=== PATIENT | male | born 1935 | race Caucasian/White ===

== ENCOUNTER 2019-03-05 09:58 | Emergency (ER) | payer MEDICARE ==
--- NOTE | 2019-03-05 11:35 | UC ---
Complaint Male HPI - HPI Summary HPI Summary: 83-year-old male who finished cephalexin for a urinary tract infection and hematuria yesterday. He states his urine completely cleared up until this morning when he started noticing some blood in the urine. He has voided one or 2 more times since then and states he has a little more blood in the urine although not alaina bleeding. He is on Coumadin for atrial fibrillation. His last PT/INR was drawn 3 weeks ago and his dosage was adjusted. He is in the process of moving to [place] from [place] with his and he states his Coumadin level was increased 3 weeks ago as result of the PT/INR. He states the [place] weather has caused him to have intermittent wheezing although he does have a history of COPD from previous smoking. He gave up smoking years ago. He states while in [place] his wheezing will come and go although he does have an albuterol inhaler. He denies any painful urination however does state that when he had the urinary tract infection and was seen in [facility] he had some lower abdominal discomfort. He states the lower abdominal discomfort has started a little bit today. He denies any fever or chills. No nausea vomiting or diarrhea. Occasionally he states his feet and ankles will swell. He denies any shortness of breath. He did state that over the past day he has had a productive cough of brownish sputum occasionally. - History of Current Complaint Stated Complaint: BLOOD IN URINE Time Seen by Provider: 03/05/19 11:12 Hx Obtained From: Patient, Family/Clinic Specialist Onset/Duration: Gradual Onset Timing: Intermittent Severity Initially: Mild Severity Currently: Mild Location: Other - Lower abdominal discomfort. Aggravating Factor(s): Nothing - Patient cannot describe the lower abdominal discomfort other than stating that is uncomfortable. Associated Signs And Symptoms: Positive: Hematuria. Negative: Back Pain, Fever , Dysuria, Blood in Stool, Nausea, Penile Discharge - Allergies/Home Medications Allergies/Adverse Reactions: Allergies Allergy/AdvReac Type Severity Reaction Status Date / Time No Known Allergies Allergy Verified 03/05/19 11:03 Home Medications: Home Medications Albuterol HFA INHALER* [Ventolin HFA Inhaler*] 2 puff INH BID 03/05/19 [History Confirmed 03/05/19] Digoxin TAB* [Lanoxin TAB*] 0.25 mg PO DAILY 03/05/19 [History Confirmed ] Eplerenone [Inspra] 25 mg PO DAILY 03/05/19 [History Confirmed 03/05/19] Finasteride TAB* [Proscar TAB*] 5 mg PO BEDTIME 03/05/19 [History Confirmed 09/18] Furosemide TAB* [Lasix TAB*] 20 mg PO DAILY 03/05/19 [History Confirmed 03/05/19 ] Gabapentin CAP(*) [Neurontin 300 CAP(*)] 300 mg PO BEDTIME 03/05/19 [History Confirmed 03/05/19] Levothyroxine TAB* [Synthroid TAB*] 137 mcg PO DAILY 03/05/19 [History Confirmed 03/05/19] Medicated Nasal [place] 1 dose INH QPM 03/05/19 [History] Nebulizer Tx Copd 1 unit INH BID 03/05/19 [History] Oxygen 1 dose INH BEDTIME 03/05/19 [History Confirmed 03/05/19] Simvastatin [Zocor 5 MG-] 10 mg PO QPM 03/05/19 [History Confirmed 03/05/19] Warfarin TAB(*) [Coumadin TAB(*)] 5 mg PO QPM 03/05/19 [History Confirmed ] Warfarin TAB(*) [Coumadin TAB(*)] 7.5 mg PO DAILY 03/05/19 [History Confirmed ] cephALEXin [Keflex] 500 mg PO Q6H 03/05/19 [History Confirmed 03/05/19] diphenhydrAMINE HCl [Nighttime Sleep Aid] 25 mg PO QPM 03/05/19 [History Confirmed 03/05/19] metFORMIN* [Glucophage 500 MG TAB *] 500 mg PO BID 03/05/19 [History Confirmed 03/05/19] rOPINIRole TAB* [Requip TAB*] 1 mg PO DAILY 03/05/19 [History Confirmed 03/05/19 ] PMH/Surg Hx/FS Hx/Imm Hx Previously Healthy: Yes Endocrine History: Diabetes, Thyroid Disease Cardiovascular History: Cardiac Disease, Atrial Fibrillation Respiratory History: COPD GI/ History: Other - Just recently finished a course of cephalexin for urinary tract infection which presented as hematuria. Other History Of: Anticoagulant Therapy - Patient takes Coumadin for atrial fibrillation. - Family History Known Family History: Positive: Non-Contributory - Social History Occupation: Retired - Patient is in the process of moving from [place] to [place]. Lives: With Family Review of Systems All Other Systems Reviewed And Are Negative: Yes Respiratory: Positive: Cough - Occasional productive cough of brownish sputum, the patient also has intermittent wheezing which he attributes to the change in weather from [place] to [place]. Gastrointestinal: Positive: Abdominal Pain - Lower abdominal discomfort across the lower abdomen, more in the pelvic area. Genitourinary: Positive: Hematuria. Negative: Vaginal/Penile Burning, Vaginal/ Penile Itching, Vaginal/Penile Discharge, Vaginal/Penile Pain, Vaginal/Penile Tenderness Is Patient Immunocompromised?: No Physical Exam Triage Information Reviewed: Yes Appearance: Well-Appearing, No Pain Distress, Well-Nourished Vital Signs Reviewed: Yes Eyes: Positive: Conjunctiva Clear ENT: Positive: Pharynx normal, TMs normal, Uvula midline Neck: Positive: Supple, Nontender, No Lymphadenopathy Respiratory: Positive: No respiratory distress, No accessory muscle use, Wheezing Cardiovascular: Positive: RRR, No Murmur, Pulses Normal, Brisk Capillary Refill Abdomen Description: Positive: No Organomegaly, Soft, Other: - Abdomen is soft with minimal tenderness in the lower abdomen. No rigidity rebound or guarding.. Negative: CVA Tenderness (R), CVA Tenderness (L), Distended, Guarding, Hepatomegaly, McBurney's Point Tenderness, Splenomegaly Bowel Sounds: Positive: Present Complaint Male Course/Dx - Course Course Of Treatment: CXR: FINDINGS: CARDIOMEDIASTINAL SILHOUETTE: The cardiomediastinal silhouette is normal. OG: The og are normal. PLEURA: The costophrenic angles are sharp. No pleural abnormalities are noted. LUNG PARENCHYMA: There is hyperinflation with flattening of the diaphragm and expansion of the AP diameter of the chest. ABDOMEN: The upper abdomen is clear. There is no subphrenic gas. BONES AND SOFT TISSUES: No bone or soft tissue abnormalities are noted. OTHER: A left-sided pacemaker is noted. IMPRESSION: HYPERINFLATION. NO ACTIVE CARDIOPULMONARY DISEASE. I am going to refill the patient's albuterol inhaler because his almost gone. He can do to puffs every 4-6 hours as needed for wheezing. He is headed back home to [place] on Friday and he as well as his preferred to follow-up with air urologist in [place] as well as her primary care provider. We will draw an INR here and follow-up later in the day with the daughter. In the meantime she is to contact his primary care provider and give the results of the INR and possibly change his dosage of Coumadin. After discussion with Dr. Kirk, I am going to treat with Cefdinir to cover a possible urinary tract infection as well as bronchitis. For any worsening symptoms or to go to the emergency room for further treatment. The daughter as well as the and are in agreement with this plan of action. - Differential Dx/Diagnosis Provider Diagnosis: Hematuria, Bronchitis Discharge ED - Sign-Out/Discharge Documenting (check all that apply): Patient Departure All imaging exams completed and their final reports reviewed: Yes - Discharge Plan Condition: Fair Disposition: HOME Prescriptions: Albuterol HFA INHALER* [Ventolin HFA Inhaler*] 2 puff INH Q4H PRN 5 Days #1 mdi PRN Reason: Wheezing Cefdinir [Cefdinir 300 MG CAP] 300 mg PO BID 10 Days #20 cap Patient Education Materials: Acute Bronchitis (ED), Hematuria (ED) Referrals: [facility] [Outside] No Primary Care Phys,NOPCP [Primary Care Provider] - Additional Instructions: Increase fluids, if you have not heard from us by 7:00 PM call here to find out the INR level. It is important because of the blood in the urine that you follow-up with a urologist in [place] next week. It is possible you may need a cystoscopy to find out the source of the bloody urine. If you develop worse bleeding, chest pain, difficulty breathing, worsening abdominal pain and then you're to go to the emergency room for further care. Use your albuterol inhaler 2 puffs every 4-6 hours as needed for wheezing or tight cough. - Billing Disposition and Condition Condition: FAIR Disposition: Home
[2019-03-05 18:41] LABS: INR 1.08 (0.82-1.09)
--- NOTE | 2019-03-07 13:07 | ED ---
Progress - Progress Note Progress Note: Urine culture final report reviewed: No growth, less than 1000 CFU/mL RN to call the patient and inform her of the results. She is on cefdinir for UTI and bronchitis. She does not have UTI. She should continue Cefdinir for her bronchitis. If she continues to have blood in urine she should check with her primary care doctor or if the symptoms are getting worse she should go to the ER. Course/Dx - Diagnoses Provider Diagnoses: Hematuria, Bronchitis Discharge ED - Sign-Out/Discharge Documenting (check all that apply): Post-Discharge Follow Up All imaging exams completed and their final reports reviewed: Yes - Discharge Plan Condition: Fair Disposition: HOME Prescriptions: Albuterol HFA INHALER* [Ventolin HFA Inhaler*] 2 puff INH Q4H PRN 5 Days #1 mdi PRN Reason: Wheezing Cefdinir [Cefdinir 300 MG CAP] 300 mg PO BID 10 Days #20 cap Patient Education Materials: Acute Bronchitis (ED), Hematuria (ED) Referrals: [facility] [Outside] No Primary Care Phys,NOPCP [Primary Care Provider] - Additional Instructions: Increase fluids, if you have not heard from us by 7:00 PM call here to find out the INR level. It is important because of the blood in the urine that you follow-up with a urologist in [place] next week. It is possible you may need a cystoscopy to find out the source of the bloody urine. If you develop worse bleeding, chest pain, difficulty breathing, worsening abdominal pain and then you're to go to the emergency room for further care. Use your albuterol inhaler 2 puffs every 4-6 hours as needed for wheezing or tight cough. - Billing Disposition and Condition Condition: FAIR Disposition: Home
== END 2019-03-05 13:48 | disposition home or self-care (01) ==
LOC: UCCORT 09:58
DX: R31.9 Hematuria, unspecified (principal); J40 Bronchitis, not specified as acute or chronic; Z79.01 Long term (current) use of anticoagulants; J44.9 Chronic obstructive pulmonary disease, unspecified; Z87.891 Personal history of nicotine dependence; Z79.899 Other long term (current) drug therapy; I48.91 Unspecified atrial fibrillation; E11.9 Type 2 diabetes mellitus without complications; E07.9 Disorder of thyroid, unspecified; Z79.84 Long term (current) use of oral hypoglycemic drugs
CPT/HCPCS: 36415; 71046; 81003; 85610; 87086; 99202; G0463

== ENCOUNTER 2019-05-24 14:01 | Observation (INO) | payer MEDICARE ==
--- NOTE | 2019-05-24 16:04 | ED ---
Respiratory - HPI Summary HPI Summary: This patient is an 84 year old male presenting to [facility] with a chief complaint of chest congestion. The patient was seen for the same thing a few months ago and was treated successfully. The patient reports SOB and hematuria yesterday. He states his symptoms have been going on for 2-3 weeks. He states he uses O2 at night with CPAP. He also reports abdominal pain and headache. He states he has never been on water pills. No Hx of kidney stones or bladder cancer. He states a Hx of AFIB and Pacemaker. Pt denies any fever, chills, erythema of eyes , sore throat, CP, cough, N/V, dysuria, myalgia, edema, rash, or dizziness. - History of Current Complaint Chief Complaint: EDAbdPain Stated Complaint: SOB PER PT Time Seen by Provider: 05/24/19 15:50 Hx Obtained From: Patient Onset/Duration: Lasting Weeks Pain Intensity: 5 Character: Dyspnea at Rest - Allergy/Home Medications Allergies/Adverse Reactions: Allergies Allergy/AdvReac Type Severity Reaction Status Date / Time acetaminophen [From Percocet] Allergy Hives Verified 05/24/19 14:09 oxycodone [From Percocet] Allergy Hives Verified 05/24/19 14:09 Home Medications: Home Medications Cefdinir cap* [Cefdinir 300 MG cap (NF)] 300 mg PO BID 05/24/19 [History Confirmed 05/24/19] Epleronone (NF) [Inspra (NF)] 25 mg PO DAILY 05/24/19 [History Confirmed ] Gabapentin CAP(*) [Neurontin 300 CAP(*)] 600 mg PO QPM 05/24/19 [History Confirmed 05/24/19] Simvastatin TAB(NF) [Zocor(NF)] 10 mg PO DAILY 05/24/19 [History Confirmed 05/24] Warfarin TAB(*) [Coumadin TAB(*)] 5 mg PO SUTUTHSA 05/24/19 [History Confirmed 05/24/19] Warfarin TAB(*) [Coumadin TAB(*)] 7.5 mg PO . DIRECTED BY 05/24/19 [ History Confirmed 05/24/19] diphenhydrAMINE HCl [Sleep-Aid] 25 mg PO BEDTIME 05/24/19 [History Confirmed ] predniSONE TAB* [Deltasone 20 MG TAB*] 20 mg PO DAILY 05/24/19 [History Confirmed 05/24/19] PMH/Surg Hx/FS Hx/Imm Hx Endocrine/Hematology History: Reports: Hx Anticoagulant Therapy - Patient takes Coumadin for atrial fibrillation., Hx Diabetes, Hx Thyroid Disease Respiratory History: Reports: Hx Asthma, Hx Chronic Obstructive Pulmonary Disease (COPD) - Surgical History Surgery Procedure, Year, and Place: cervical spine with screws and plates; right shoulder x 3, left shoulder x 2; hip replacement; left arm plate; knee; ? gallbladder Infectious Disease History: No Infectious Disease History: Denies: Traveled Outside the [place] in Last 30 Days - Family History Known Family History: Negative: Seizure Disorder - Social History Alcohol Use: Occasionally Substance Use Type: Reports: None Smoking Status (MU): Former Smoker Review of Systems Negative: Fever, Chills Negative: Erythema Negative: Sore Throat Negative: Chest Pain Positive: Shortness Of Breath Positive: Abdominal Pain. Negative: Vomiting, Nausea Positive: hematuria. Negative: dysuria Negative: Myalgia, Edema Negative: Rash Neurological: Other - Neg: Dizziness All Other Systems Reviewed And Are Negative: No Physical Exam - Summary Physical Exam Summary: Constitutional: Well-developed, Well-nourished, Alert. (-) Distressed Skin: Warm, Dry HENT: Normocephalic; Atraumatic Eyes: Conjunctiva normal Neck: Musculoskeletal ROM normal neck. (-) JVD, (-) Stridor, (-) Tracheal deviation Cardio: Rhythm regular, rate normal, Heart sounds normal; Intact distal pulses; The pedal pulses are 2+ and symmetric. Radial pulses are 2+ and symmetric. (-) Murmur Pulmonary/Chest wall: Bilateral rales and wheezes. Abd: Soft, (-) tenderness, (-) Distension, (-) Guarding, (-) Rebound Musculoskeletal: 1+ Edema in both lower extremities Lymph: (-) Cervical adenopathy Neuro: Alert, Oriented x3 Psych: Mood and affect Normal Triage Information Reviewed: Yes Vital Signs On Initial Exam: Initial Vitals Temp Pulse Resp BP Pulse Ox 98.5 F 77 18 157/83 92 05/24/19 14:02 05/24/19 14:02 05/24/19 14:02 05/24/19 14:02 05/24/19 14:02 Vital Signs Reviewed: Yes Procedures - Sedation Patient Received Moderate/Deep Sedation with Procedure: No Diagnostics - Vital Signs Vital Signs Temp Pulse Resp BP Pulse Ox 05/24/19 14:02 98.5 F 77 18 157/83 92 - Laboratory Result Diagrams: 05/24/19 16:02 05/24/19 16:02 Lab Statement: Any lab studies that have been ordered have been reviewed, and results considered in the medical decision making process. - Radiology CXR Radiology Interpretation Completed By: Radiologist Summary of Radiographic Findings: Interval appearance of cardiomegaly, specifically right heart cardiomegaly. Please correspond to clinical signs and symptoms of right heart failure includign pulmonary hypertension or pulmonary embolism. - CT CTA Chest/Abd/Pel CT Interpretation Completed By: Radiologist Summary of CT Findings: No evidence of PE. Minimal bibasilar ateletasis otherwise no acute process in the chest. ED Provider has reviewed this report. - Ultrasound No standard instances Ultrasound Interpretation Completed By: Radiologist Summary of Ultrasound Findings: Abdomen/Bladder: 1. Sonographically normal kidneys. 2. Prostatomergaly with the prostate extending into the midline trigonal region of the bladder. 3. Mild bladder wall thickening up to 6 mm with 2 soft tissue foci at the dependent posterior wall each measuring about 1 cm in greatest demension. 4. The post void residual measures 31%. ED Provider has reviewed this report. - EKG 1604 Cardiac Rate: NL - 64 BPM Summary of EKG Findings: Paced rythm. No STEMI. ED Physician has reviewed and interpreted this EKG. Re-Evaluation - Re-Evaluation First Eval Re-Evaluation Time: 19:00 Change: Unchanged Disposition - Course Course Of Treatment: This patient is an 84 year old male presenting to [facility] with a chief complaint of chest congestion. CXR reveals Interval appearance of cardiomegaly, specifically right heart cardiomegaly. Please correspond to clinical signs and symptoms of right heart failure including pulmonary hypertension or pulmonary embolism. US Abdomen/Bladder: 1. Sonographically normal kidneys. 2. Prostatomergaly with the prostate extending into the midline trigonal region of the bladder. 3. Mild bladder wall thickening up to 6 mm with 2 soft tissue foci at the dependent posterior wall each measuring about 1 cm in greatest demension. 4. The post void residual measures 31%. CTA Chest: No evidence of PE. Minimal bibasilar ateletasis otherwise no acute process in the chest. Dr. Mcpherson, Hospitalist, accepted the patient for admission. Plan for admission was discussed with the patient and he was agreeable with this plan. - Diagnoses Provider Diagnoses: Orthopnea, CHF exacerbation, SOB (shortness of breath) Discharge ED - Sign-Out/Discharge Documenting (check all that apply): Patient Departure - Admission - Discharge Plan Condition: Stable Disposition: ADMITTED TO [facility] Referrals: No Primary Care Phys,NOPCP [Primary Care Provider] - - Attestation Statements Document Initiated by Scribe: Yes Documenting Scribe: Mitchell Donato Provider For Whom Scribe is Documenting (Include Credential): Zac Plummer MD Scribe Attestation: I, Mitchell Donato, scribed for Zac Plummer MD on 05/24/19 at 1853. Status of Scribe Document: Ready
[2019-05-24 16:14] LABS: ABS Lymphocytes 0.3 10^3/ul (1.0-4.8); ABS Monocytes 0.1 10^3/ul (0-0.8); ABS Neutrophils 4.1 10^3/ul (1.5-7.7); Eosinophil % 0.1 %; Hematocrit 38 % (42-52); Hemoglobin 12.9 g/dL (14.0-18.0); Mean Corpuscular HGB Conc 34 g/dL (31-36); Mean Corpuscular Hemoglobin 33 pg (27-31); Mean Corpuscular Volume 97 fL (80-94); Mean Platelet Volume 6.7 fL (7.4-10.4); Platelet Count 158 10^3/uL (150-450); Red Blood Count 3.86 10^6 /uL (4.18-5.48); Red Cell Distribution Width 13 % (10-15); White Blood Count 4.6 10^3/uL (3.5-10.8)
[2019-05-24 16:23] LABS: Activated Partial Thrombo Time 40.5 seconds (26.0-38.0); INR 1.51 (0.82-1.09)
[2019-05-24 16:38] LABS: Troponin I 0.03 ng/mL (<0.03)
[2019-05-24 16:52] LABS: ALT 25 U/L (7-52); AST 29 U/L (13-39); Albumin 4.5 g/dL (3.2-5.2); Albumin/Globulin Ratio 1.5 (1-3); Alkaline Phosphatase 59 U/L (34-104); Anion Gap 4 mmol/L (2-11); Blood Urea Nitrogen 16 mg/dL (6-24); CO2 Carbon Dioxide 37 mmol/L (22-32); Calcium 9.6 mg/dL (8.6-10.3); Chloride 96 mmol/L (101-111); EGFR African American 143.8 (>60); EGFR Non-African American 118.9 (>60); Glucose 170 mg/dL (70-100); Potassium 4.5 mmol/L (3.5-5.0); Sodium 137 mmol/L (135-145); Total Protein 7.5 g/dL (6.4-8.9)
[2019-05-24] MEDS ORDERED: Iohexol 300* (CONTRAST) 10 ML SDV IV ONE (17:23)
[2019-05-24] MEDS ORDERED: Iodixanol* (CONTRAST) 320 MG/ML 100 ML SDV IV ONE (17:24)
[2019-05-24 17:49] LABS: Urine Appearance Cloudy; Urine Bilirubin Negative (Negative); Urine Blood 3+ (Negative); Urine Color Yellow; Urine Glucose Negative (Negative); Urine Ketones Negative (Negative); Urine Nitrite Negative (Negative); Urine Protein 1+(30 mg/dL) (Negative); Urine Specific Gravity 1.013 (1.010-1.030); Urine Urobilinogen Negative (Negative)
[2019-05-24 17:52] LABS: Urine Bacteria Absent (Absent); Urine Red Blood Cell 3+(>10/hpf) (Absent); Urine White Blood Cell Absent (Absent)
[2019-05-24] MEDS ORDERED: methylPREDNISolone 125 MG* 2 ML VIAL IV ONE (19:25)
[2019-05-24] MEDS ORDERED: Furosemide IV* 10 MG/ML VIAL (40 MG) IV ONE (19:25)
[2019-05-24] MEDS ORDERED: Warfarin TAB(*) 7.5 MG PO SCH (21:00)
[2019-05-24] MEDS ORDERED: Finasteride TAB* 5 MG PO SCH (21:00)
[2019-05-24] MEDS ORDERED: rOPINIRole TAB* 1 MG PO SCH (21:00)
--- NOTE | 2019-05-24 22:21 | HP ---
CC: Dr. Fiona Villaseñor* HISTORY AND PHYSICAL: DATE OF ADMISSION: 05/24/19 PRIMARY CARE PROVIDER: Dr. Fiona Villaseñor. ATTENDING PHYSICIAN: Dr. Kelly Mcpherson* (dictated by Angelic Cotto NP). CHIEF COMPLAINT: Hematuria. HISTORY OF PRESENT ILLNESS: Mr. Marie is an 84-year-old male with a past medical history of AFib, hyperlipidemia, diabetes, hypothyroidism, COPD, asthma , and peripheral vascular disease, who presents to the emergency room today with complaints of hematuria. Reportedly, the patient has been having some shortness of breath over the last few weeks. He recently completed a course of Augmentin for diagnosis of pneumonia, though was still having some shortness of breath and so was started on prednisone a few days ago. His shortness of breath has generally improved, although yesterday on his 3rd day of prednisone, he began to experience some hematuria. He reports that he previously had hematuria back in March when he took prednisone at that time. The patient denies any fevers, chest pain, cough, hemoptysis, nausea, vomiting, diarrhea, or abdominal pain. He does endorse some lower extremity edema, which he also states is new since starting the prednisone. In the emergency room, the patient was found to have normal vital signs. He was saturating well on room air. Lab work was remarkable for a mild anemia, subtherapeutic INR, a very minimally elevated troponin of 0.03, and a BNP of 117. Urinalysis did show 3+ red blood cells and 1+ protein, but no bacteria, leukocyte esterase, or nitrites. The patient had a chest x-ray, which showed cardiomegaly. He had a renal and bladder ultrasound showing some mild bladder wall thickening and he had a chest and thorax CTA, which only showed minimal bibasilar atelectasis. Because of the concern for his symptoms, the hospitalist service was asked to evaluate for admission. PAST MEDICAL HISTORY: 1. Atrial fibrillation. 2. Hyperlipidemia. 3. Diabetes mellitus, type 2. 4. Hypothyroidism. 5. COPD. 6. Asthma. 7. Peripheral vascular disease. 8. Obstructive sleep apnea, on CPAP, with oxygen at night. 9. Cardiac arrest postoperatively. PAST SURGICAL HISTORY: 1. Cervical spine surgery x2. 2. Bilateral inguinal hernia repair. 3. Multiple orthopedic surgeries including shoulders, knees, hips, and wrists. MEDICATIONS: 1. Albuterol neb, 1 neb t.i.d. 2. Digoxin 0.25 mg p.o. daily. 3. Benadryl 25 mg p.o. at bedtime. 4. Inspra 25 mg p.o. daily. 5. Finasteride 5 mg p.o. at bedtime. 6. Advair 250/50 one neb inhalation p.o. daily. 7. Furosemide 20 mg p.o. daily. 8. Gabapentin 600 mg p.o. daily. 9. Levothyroxine 137 mcg p.o. daily. 10. Metformin 500 mg p.o. b.i.d. 11. Singulair 10 mg p.o. daily. 12. Prednisone taper. 13. Requip 1 mg p.o. at bedtime. 14. Simvastatin 10 mg p.o. daily. 15. Coumadin 5 to 7.5 mg p.o. daily. ALLERGIES: PERCOCET. FAMILY HISTORY: The patient's father of CHF though he was quite elderly at that time. SOCIAL HISTORY: The patient has a distant [id number] smoking history. He reports occasional alcohol use. He recently moved back up to the [facility] from [place] to be closer to his children and grandchildren. He lives with his , Joana, who would be his surrogate decision maker in the event he is unable to make his own decisions. REVIEW OF SYSTEMS: A 11-point review of systems was performed. All the pertinent positive and negative findings are in the HPI. All other systems are negative. PHYSICAL EXAMINATION GENERAL: Mr. Marie is a well-developed, well-nourished, elderly white male sitting in bed, eating a hamburger, in no acute distress. He appears his stated age. VITAL SIGNS: Temp 98.5, heart rate 60, respiratory rate 22, oxygen saturation 99%, blood pressure 161/78. HEENT: Head is atraumatic and normocephalic. Visual westfall are grossly intact. Extraocular movements intact. Oral mucous membranes moist. NECK: Thyroid not palpable. Trachea midline. No lymphadenopathy. RESPIRATORY: Symmetrical chest expansion. Lungs with mild expiratory wheezing throughout. No rhonchi or crackles. CARDIOVASCULAR: Regular rate and rhythm. S1 and S2 present. No murmurs, rubs , or gallops. No JVD. ABDOMEN: Soft, minimally tender to palpation throughout. Bowel sounds normoactive. EXTREMITIES: Skin warm and smooth bilaterally. 1+ pitting edema to bilateral lower extremities. Pedal pulses 2+ bilaterally. NEUROLOGIC: Awake, alert, and oriented x4. Cranial nerves II through XII grossly intact. Moves all extremities. DIAGNOSTIC STUDIES/LAB DATA: WBC 4.6, RBC 3.86, hemoglobin 12.9, hematocrit 38 , platelets 158. INR 1.51. Sodium 137, potassium 4.5, chloride 96, carbon dioxide 37, BUN 16, creatinine 0.64, glucose 170, lactic acid 1. Troponin 0.03. BNP 117. Urinalysis remarkable for 3+ red blood cells. EKG shows a ventricular paced rhythm, occasional PVCs. Chest x-ray reads as interval appearance of cardiomegaly, specifically right heart cardiomegaly. Please correspond to clinical signs and symptoms of right heart failure including pulmonary hypertension or pulmonary embolism. Renal and bladder ultrasound includes sonographically normal kidneys. Prostatomegaly with the prostate extending into the midline trigonal region of the bladder. Mild bladder wall thickening up to 6 mm with 2 soft tissue foci at the dependent posterior wall each measuring about 1 cm in the greatest dimension. The postvoid residual measures 31%. Chest CTA reads as no evidence of PE. Mild bibasilar atelectasis. Otherwise, no acute process in the chest. ASSESSMENT AND PLAN: Mr. Marie is an 84-year-old male with the past medical history of atrial fibrillation, hyperlipidemia, diabetes, hypothyroidism , chronic obstructive pulmonary disease, asthma, peripheral vascular disease, who presents to the emergency room today with complaints of hematuria after recently starting prednisone. The patient will be admitted on observation for: 1. Mild chronic obstructive pulmonary disease exacerbation. The patient has no obvious pneumonia on imaging and is certainly not septic. He does have wheezing throughout. So, I think he likely has a mild chronic obstructive pulmonary disease exacerbation. He reports that generally his symptoms have improved and he has been using his nebulizer 3 times a day at home. He does report that he has previously not tolerated prednisone well in the past. At this point, I will give him a one- time bolus dose of Solu-Medrol and I will place him on scheduled nebulizers. I am not sure that he will require any further steroids going forward. He is not requiring oxygen at this time and I anticipate he could probably go home tomorrow. 2. Hematuria. The patient noted the hematuria and this was confirmed with 3+ red blood cells in his urine. The source of this is unclear. There are no obvious findings on ultrasound. He certainly is not losing any significant amount of blood and H and H is stable so this may require further outpatient workup if it persists though he has had intermittent hematuria in the past reportedly when he was on prednisone. 3. Lower extremity edema. The patient notes some new edema again since starting prednisone. He does take daily Lasix and has been taking this for as long as he can remember though is not able to tell me why he takes it and denies any history of congestive heart failure. 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 We will check an echo tomorrow as there is nothing on record. 4. Atrial fibrillation. The patient's rhythm is paced. Continue digoxin. His INR is slightly subtherapeutic. We will give him 7.5 mg of warfarin tonight and recheck an INR in the morning. 5. Hyperlipidemia. Continue simvastatin. 6. Diabetes. Continue metformin. 7. Hypothyroidism. Continue levothyroxine. 8. Benign prostatic hyperplasia. Continue finasteride. 9. FEN. The patient does not requiring any fluid resuscitation or electrolyte repletion. I have ordered a heart-healthy diet. 10. DVT prophylaxis. According to the DVT Risk Assessment, the patient scores a 6 putting him at highest risk. He is already anticoagulated with warfarin, but his INR is slightly subtherapeutic at this point. We will give him a dose of warfarin tonight and then recheck INR in the morning. 11. Code status. The patient will be a full code. TIME SPENT: Approximately 60 minutes was spent on this admission, greater than half of that time was spent [id number] with the patient and his family obtaining my history and performing my physical exam and reviewing the plan of care. This has been reviewed with my attending, Dr. Mcpherson, who is in agreement with the plan of care. ANGELIC COTTO, SCOREKEEPER [id number]/[facility] #: [id number] AD
[2019-05-24] MEDS: metFORMIN* 500 MG TAB PO SCH (22:22)
[2019-05-24] MEDS: Albuterol/Ipratropium NEB.SOL* Albuterol 2.5 MG/Ipratropium 0.5 MG 3 ML INH SCH (23:43)
[2019-05-25] MEDS: Albuterol/Ipratropium NEB.SOL* Albuterol 2.5 MG/Ipratropium 0.5 MG 3 ML INH SCH ×2 (03:54→08:21)
[2019-05-25 05:21] LABS: ABS Lymphocytes 0.4 10^3/ul (1.0-4.8); ABS Monocytes 0.2 10^3/ul (0-0.8); ABS Neutrophils 3.6 10^3/ul (1.5-7.7); Hematocrit 37 % (42-52); Hemoglobin 12.4 g/dL (14.0-18.0); Lymphocyte % 8.7 %; Mean Corpuscular HGB Conc 34 g/dL (31-36); Mean Corpuscular Hemoglobin 33 pg (27-31); Mean Corpuscular Volume 97 fL (80-94); Platelet Count 157 10^3/uL (150-450); Red Blood Count 3.76 10^6 /uL (4.18-5.48); Red Cell Distribution Width 13 % (10-15); White Blood Count 4.2 10^3/uL (3.5-10.8)
[2019-05-25 05:26] LABS: INR 1.52 (0.82-1.09)
[2019-05-25 05:38] LABS: BUN/Creatinine Ratio 25.9 (8-20); Calcium 9.1 mg/dL (8.6-10.3); EGFR African American 161.1 (>60); EGFR Non-African American 133.2 (>60); Potassium 3.7 mmol/L (3.5-5.0)
[2019-05-25] MEDS ORDERED: Levothyroxine TAB* 137 MCG TAB PO SCH (06:00)
[2019-05-25] MEDS: metFORMIN* 500 MG TAB PO SCH (08:39)
[2019-05-25] MEDS ORDERED: Digoxin TAB* 0.25 MG PO SCH (09:00)
[2019-05-25] MEDS ORDERED: Mometasone/Formoter 200/5 MDI INH SCH (09:00)
[2019-05-25] MEDS ORDERED: Montelukast Sodium TAB* 10 MG PO SCH (09:00)
[2019-05-25] MEDS ORDERED: Atorvastatin* 10 MG TAB PO SCH (09:00)
--- NOTE | 2019-05-25 10:07 | ECHO ---
*[facility]* [place] [address] Fax #: [phone] Transthoracic Echocardiogram Patient: Robbie Marie : 1935 Study Date: 05/25/2019 Age: 84 Gender: M HR: 75 bpm Height: 72 in /182.9 cm BSA: 2.01 m^2 Weight: 174.6 lb /79.4 kg BMI: 23.7 kg/m^2 *[place]ola Man: * Ayse Tolbert *Referring Physician: * Angelic Cotto *Reading Physician: * José Luis Vines MD Indications: Edema. History: Atrial fibrillation. Risk factors: Diabetes mellitus. Dyslipidemia. Conclusions Summary: - Left ventricle: Systolic function is normal. The estimated ejection fraction is 55-60%. There is mild interventricular dyssynchrony. - Left atrium: The atrium is moderately dilated. - Right atrium: The atrium is mildly to moderately dilated. - Mitral valve: There is trace regurgitation. - Aortic valve: Not well visualized. A bicuspid morphology cannot be excluded. The leaflets are mildly calcified. Valve mobility is restricted. The findings are consistent with mild to moderate stenosis. Mild by continuity but perhaps moderate by 2d. Consider low gradient aortic stenosis. - Tricuspid valve: There is mild-moderate regurgitation. - Inferior vena cava: The vessel is moderately dilated. Recommendations: Consider transesophageal echocardiogram if clinically indicated to further evaluate the aortic valve. Study data: Transthoracic echocardiogram. Procedure: Transthoracic echocardiography was performed. Image quality was good. Complete 2D, spectral Doppler, and color flow Doppler. Location: Bedside. Patient status: Inpatient. Patient room number: 441-01. No prior study is available for comparison. Rhythm: Atrial fibrillation. Findings Left ventricle: The cavity size is normal. Wall thickness is normal. Systolic function is normal. The estimated ejection fraction is 55-60%. Wall motion is normal; there are no regional wall motion abnormalities. There is mild interventricular dyssynchrony. Left ventricular diastolic function parameters are indeterminate. Right ventricle: The cavity size is at the upper limits of normal. Wall thickness is normal. Pacer wire noted in the right ventricle. Systolic function is normal. Ventricular septum: There is abnormal interventricular septal wall motion consistent with an RV pacemaker. Left atrium: The atrium is moderately dilated. Right atrium: The atrium is mildly to moderately dilated. Atrial septum: There is increased thickness of the septum, consistent with lipomatous hypertrophy. No defect or patent foramen ovale is identified. Mitral valve: The leaflets are normal thickness. There is no evidence of stenosis. There is trace regurgitation. Aortic valve: Not well visualized. A bicuspid morphology cannot be excluded. The leaflets are mildly calcified. Valve mobility is restricted. The findings are consistent with mild to moderate stenosis. Mild by continuity but perhaps moderate by 2d. Consider low gradient aortic stenosis. There is no significant regurgitation. Tricuspid valve: The valve is structurally normal. There is no evidence of stenosis. There is mild-moderate regurgitation. Pulmonic valve: Not well visualized. There is no evidence of stenosis. There is no significant regurgitation. Aorta: The aortic root appears normal. The aortic arch appears normal. Pericardium: There is no significant pericardial effusion. Pulmonary arteries: Systolic pressure is within the normal range, estimated to be 31 mm Hg. Systemic veins: Inferior vena cava: The vessel is moderately dilated. Pulmonary veins: The Pulmonary veins appear normal. Measurements Left ventricle Value Ref Aortic valve Value Ref JYOTHI, LAX 5.3 cm 4.2 - Peak v, S 1.27 m/sec ----- 5.8 VTI, S 27.6 cm ----- ESD, LAX 3.3 cm 2.5 - Mean grad, S 4.0 mm Hg ----- 4.0 Peak grad, S 6.0 mm Hg ----- FS, LAX 39 % 25 - 43 KELLY, VTI 2.03 cm^2 ----- PW, ED, LAX (H) 1.1 cm 0.6 - KELLY, Vmax 2.17 cm^2 ----- 1.0 FS 39 % 25 - 43 Mitral valve Value Ref PW, ED (H) 1.1 cm 0.6 - Peak E 0.95 m/sec ----- 1.0 Peak A 0 m/sec ----- Decel time 363 ms ----- LVOT Value Ref Peak grad, D 3.6 mm Hg ----- Diam, S 2.10 cm -------- Area 3.5 cm^2 -------- Pulmonic valve Value Ref Peak natalia, S 0.8 m/sec -------- Peak v, S 0.82 m/sec ----- Mean grad, S 1 mm Hg -------- Peak grad, S 3.0 mm Hg ----- SV 58 ml -------- Tricuspid valve Value Ref Ventricular septum Value Ref TR peak v 2.3 m/sec <=2.8 IVS, ED 1.0 cm 0.6 - Peak RV-RA grad, S 21 mm Hg ----- 1.0 Max TR natalia 2.18 m/sec ----- Right ventricle Value Ref Aortic root Value Ref JYOTHI, LAX 2.9 cm -------- Root diam 3.6 cm <4.1 JYOTHI minor ax, A4C (H) 3.8 cm 1.9 - mid 3.5 Ascending aorta Value Ref AAo AP diam, S 3.5 cm ----- Left atrium Value Ref ML dim, A4C 5.0 cm -------- Aortic arch Value Ref SI dim, A4C 5.8 cm -------- Arch diam 2.4 cm ----- Vol/bsa, ES, 1-p (H) 54 ml/m^2 12 - 37 A4C Inferior vena cava Value Ref Vol/bsa, ES, A/L (H) 59 ml/m^2 16 - 34 Diam 3.3 cm ----- Right atrium Value Ref SI dim, ES (H) 6.1 cm 3.4 - 5.3 ML dim, ES, A4C (H) 5.6 cm 2.6 - 4.4 SI dim, ES, A4C (H) 6.1 cm 3.4 - 5.3 Legend: (L) and (H) kortney values outside specified reference range. Prepared and electronically signed by José Luis Vines MD 05/25/2019 10:05
[2019-05-25 11:10] LABS: Troponin I 0.03 ng/mL (<0.03)
[2019-05-25 11:35] VITALS: BP 116/49
[2019-05-25] MEDS ORDERED: Albuterol/Ipratropium NEB.SOL* Albuterol 2.5 MG/Ipratropium 0.5 MG 3 ML INH SCH (14:00)
[2019-05-25] MEDS ORDERED: Warfarin TAB(*) 5 MG PO SCH (17:00)
[2019-05-25] MEDS ORDERED: Gabapentin CAP(*) 300 MG PO SCH (18:00)
--- NOTE | 2019-05-26 00:11 | DS ---
CC: Dr. Fiona Villaseñor* DISCHARGE SUMMARY: DATE OF ADMISSION: 05/24/19 DATE OF DISCHARGE: 05/25/19 PRIMARY CARE PROVIDER: Dr. Fiona Villaseñor. ATTENDING PHYSICIAN: Dr. Kelly Mcpherson* (dictated by Angelic Cotto NP). PRIMARY DIAGNOSES: 1. Mild chronic obstructive pulmonary disease exacerbation. 2. Hematuria. SECONDARY DIAGNOSES: 1. Atrial fibrillation. 2. Hyperlipidemia. 3. Diabetes mellitus. 4. Hypothyroidism. 5. Benign prostatic hypertrophy. 6. Peripheral vascular disease. STUDIES WHILE IN THE HOSPITAL: 1. EKG on 05/24/19 showed ventricular paced rhythm and occasional PVCs, rate is 64. 2. Chest x-ray on 05/24/19 reads as interval appearance of cardiomegaly, specifically right heart cardiomegaly. Please correspond to clinical signs and symptoms of right heart failure including pulmonary hypertension or pulmonary embolism. 3. Renal and bladder ultrasound on 05/24/19 reads as sonographically normal kidneys. Prostatomegaly with the prostate extending into the midline trigonal region of the bladder. Mild bladder wall thickening up to 6 mm with 2 soft tissue foci at the dependent posterior wall each measuring about 1 cm in the greatest dimension. The postvoid residual measures 31%. 4. Chest CTA on 05/24/19 reads as no evidence of PE. Mild bibasilar atelectasis. Otherwise, no acute process in the chest. 5. Transthoracic echocardiogram on 05/25/19 reads as the left ventricular systolic function is normal. The estimated ejection fraction is 55% to 60%. There is mild interventricular dyssynchrony. The left atrium is moderately dilated. The right atrium is mildly to moderately dilated. There is trace MR. The aortic valve was not well visualized. A bicuspid morphology cannot be excluded. The aortic leaflets are mildly calcified. Valve mobility is restricted. These findings are consistent with mild to moderate . Consider low gradient . There is mild to moderate TR. The inferior vena cava is moderately dilated. Consider transesophageal echocardiogram if clinically indicated to further evaluate the aortic valve. HISTORY OF PRESENT ILLNESS AND HOSPITAL COURSE: Mr. Marie is an 84-year- old male with the past medical history of atrial fibrillation, hypertension, diabetes, COPD, asthma, PVD, and obstructive sleep apnea, who presented to the emergency room on 05/24/19 with complaints of hematuria. Please see the history and physical by myself for complete summary of the events leading up to this hospitalization. In short, the patient moved back to the [facility] apparently 6 weeks ago from [place]. He has normally had 1 appointment with a newly established PCP since that time. Within the last few weeks, he did experience some shortness of breath. He was diagnosed with pneumonia and completed a course of Augmentin. He was still having some shortness of breath and so was placed on a prednisone taper. After beginning the prednisone taper, he did note some hematuria which he reports he has experienced while taking prednisone in the past specifically on 03/21/19. In the emergency room, he was noted to have hematuria and a chest x-ray concerning for some cardiomegaly. He was admitted by the hospitalist service. The patient had an uneventful night and was monitored on telemetry without any significant arrhythmias. He had transthoracic echocardiogram this morning with results noted above. There was some difficulty apparently visualizing the aortic valve, so at this point, there is no need for further evaluation with the transesophageal echocardiogram and this could likely be done as an outpatient if necessary. The patient did have 1+ pitting edema on admission, which has resolved as of this morning after 1 dose of Lasix. He did receive 1 loading dose of Solu-Medrol yesterday evening. This morning, his lungs are clear without any further wheezing. So, I think that this mild COPD exacerbation was easily resolved with a steroid burst. He has not been requiring any oxygen and vital signs have been stable. Regarding his hematuria, apparently after I saw the patient in the emergency room yesterday a Badillo catheter was inserted and continuous bladder irrigation was started overnight under the direction of the ED physician. It is not entirely clear why this was initiated as I do not think it was necessary at that time. Continuous bladder irrigation was stopped this morning. The Badillo was removed and the patient has voided since that time. His urine does remain bloody, though again the patient has experienced intermittent hematuria in the past. At this point, his H and H remains stable around 12 and 37, so acute blood loss is not concerning. I think that the hematuria may certainly warrant further outpatient workup, but at this point there are no acute inpatient needs. The patient is feeling better today and is anxious to return home. PHYSICAL EXAMINATION: On exam, he is alert and oriented x4. He has no focal neurological deficits. Heart has a regular rate and rhythm without murmurs, rubs, or gallops. Lungs are clear to auscultation without rhonchi, wheezes, or rubs. There is no edema. Abdomen is soft, nontender. Physical exam is otherwise benign. Mr. Marie is stable for discharge today. Most recent vitals are as follows : Temp 98.3, heart rate 60, respiratory rate 16, oxygen saturation 96% on room air, blood pressure 116/49. DISCHARGE MEDICATIONS: Changed medication: Warfarin 7.5 mg p.o. today and tomorrow (previously was 5 mg daily). Continued medications: 1. Albuterol 1 neb t.i.d. 2. Digoxin 0.25 mg p.o. daily. 3. Benadryl 25 mg p.o. at bedtime. 4. Inspra 25 mg p.o. daily. 5. Finasteride 5 mg p.o. at bedtime. 6. Advair 250/50 one inhalation p.o. daily. 7. Furosemide 20 mg p.o. daily. 8. Gabapentin 600 mg p.o. daily. 9. Levothyroxine 137 mcg p.o. daily. 10. Metformin 500 mg p.o. b.i.d. 11. Singulair 10 mg p.o. daily. 12. Requip 1 mg p.o. at bedtime. 13. Simvastatin 10 mg p.o. daily. Discontinued medication: 1. Prednisone. DISCHARGE PLAN: Mr. Marie will be discharged home. Activity will be as tolerated. Diet will be heart healthy. Medications are as noted above. Reportedly, since moving back to the [facility], the patient has been taking 5 mg of Coumadin daily. Prior to this, he was taking 5 to 7.5 mg daily based on instructions from his primary care provider and INR results. He is noted to be subtherapeutic today with an INR of 1.52. So, I have advised the patient that he should take 7.5 mg today and tomorrow. He will need to get his INR rechecked on 05/27/19. Results of that will go to the patient's PCP and I have instructed him that he will need to contact his PCP's office for further instructions regarding Coumadin dosing. I have stressed to him the importance of having his INR checked regularly as the Coumadin is ineffective with a subtherapeutic INR and it is unclear how long his INR has been subtherapeutic. I have discontinued his prednisone. I am not entirety convinced that the hematuria is related to the prednisone use. This may just be coincidental; however, it cannot be completely excluded. He can resume his other usual medications as noted above. Regarding the hematuria, again the patient is not losing a significant amount of blood at this time and H and H has remained stable. It sounds as though this has been an intermittent problem in the past and he should likely follow up with Urology to determine the cause of this hematuria. Regarding this mild COPD exacerbation, this was secondary to his pneumonia which has been fully treated. At this point, he is saturating well without oxygen and has no wheezing. So, he does not require any further steroids at this time and can resume his usual nebulizer regimen. I have additionally ordered a CBC to be rechecked on 05/27/19 to ensure H and H does remain stable and results of that will also go to the patient's PCP. He will need to follow up with the PCP in 4 to 7 days. He does report he already has an appointment scheduled with a local vessel operator within the next month and I have advised him that he should keep that appointment. He has been advised to return to the emergency room or nearest hospital for any worsening of symptoms, shortness of breath, lightheadedness, dizziness, chest discomfort, high fevers, chills, night sweats, loss of consciousness or any other worrisome signs or symptoms. DISCHARGE CONDITION: Stable. DISCHARGE DISPOSITION: Home. This is a summarized report of a complex medical history and hospital stay. For further details, please see the entire medical record. TIME SPENT: Approximately 50 minutes was spent on this discharge. ANGELIC COTTO NP [id number]/[facility] #: [id number] AD
[2019-05-26] MEDS ORDERED: Warfarin TAB(*) 7.5 MG PO SCH (17:00)
== END 2019-05-25 14:37 | disposition home or self-care (01) ==
LOC: ED 14:01 → MEDTELE 19:22
PROVIDERS: ADMIT Internal Medicine; ATTEND Internal Medicine
DX: J44.1 Chronic obstructive pulmonary disease with (acute) exacerbation (principal); R31.9 Hematuria, unspecified; I48.91 Unspecified atrial fibrillation; E78.5 Hyperlipidemia, unspecified; E11.9 Type 2 diabetes mellitus without complications; E03.9 Hypothyroidism, unspecified; N40.0 Benign prostatic hyperplasia without lower urinary tract symptoms; I73.9 Peripheral vascular disease, unspecified; Z79.899 Other long term (current) drug therapy
CPT/HCPCS: 36415; 71045; 71275; 76770; 80048; 80053; 81003; 81015; 83605; 83880; 84484; 85025; 85610; 85730; 87040; 87077; 87150; 87205; 93005; 93306; 94640; 94660; 96374; 96375; 99284; A9270-GY; G0378; J1940; J2930; Q9967

== ENCOUNTER 2019-06-07 09:54 | Observation (INO) | payer MEDICARE ==
--- NOTE | 2019-06-07 10:13 | ED ---
Shortness of Breath - HPI Summary HPI Summary: Patient is an 84 y/o M presenting to the ED for a chief complaint of shortness of breath that began on the night of 06/06/19. Patient is present with his and son. Patient notes irregular rhythm, wheezing, productive cough, nausea, vomiting, and chest pain. He describes his chest pain as a tightness sensation that has improved since it began on 06/06/19. His daughter reports the patient has bilateral LE edema and erythema. Patient denies fever. Typically, the patient uses 2L of oxygen at night, which he admits not using before going to bed on 06/06/19. Recently, the patient was diagnosed with pneumonia and given a course of antibiotics he has since completed. PMHx is significant for atrial fibrillation. PSHx is significant for pacemaker placement. He is on Lasix for bilateral LE edema. Allergies noted. Medications reviewed. 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 - Onset/Duration: Sudden Onset, Still Present Timing: Constant Current Severity: Moderate Dyspnea At: Rest Aggravating Factors: Nothing Alleviating Factors: Oxygen Associated Signs & Symptoms: Cough (Productive), Chest Pain Unrelated to Cough, Edema - Bilateral LE - Allergy/Home Medications Allergies/Adverse Reactions: Allergies Allergy/AdvReac Type Severity Reaction Status Date / Time acetaminophen [From Percocet] Allergy Hives Verified 05/24/19 14:09 oxycodone [From Percocet] Allergy Hives Verified 05/24/19 14:09 Home Medications: Home Medications Primidone 50 mg TAB (*) [Mysoline 250 mg TAB (*)] 50 mg PO BEDTIME 06/07/19 [ History Confirmed 06/07/19] PMH/Surg Hx/FS Hx/Imm Hx Previously Healthy: Yes Endocrine/Hematology History: Reports: Hx Anticoagulant Therapy - Patient takes Coumadin for atrial fibrillation., Hx Diabetes, Hx Thyroid Disease Cardiovascular History: Reports: Hx Cardiac Arrest - X2 Respiratory History: Reports: Hx Asthma, Hx Chronic Obstructive Pulmonary Disease (COPD) Sensory History: Reports: Hx Contacts or Glasses, Hx Hearing Aid Denies: Hx Legally Blind, Hx Deafness Opthamlomology History: Reports: Hx Contacts or Glasses Denies: Hx Legally Blind EENT History: Denies: Hx Deafness - Surgical History Surgical History: Yes Surgery Procedure, Year, and Place: cervical spine with screws and plates; right shoulder x 3, left shoulder x 2; hip replacement; left arm plate; knee; ? gallbladder Infectious Disease History: No Infectious Disease History: Denies: Traveled Outside the [place] in Last 30 Days - Family History Known Family History: Negative: Seizure Disorder - Social History Occupation: Retired Lives: With Family Alcohol Use: Occasionally Hx Substance Use: No Substance Use Type: Reports: None Hx Tobacco Use: Yes Smoking Status (MU): Former Smoker Review of Systems Negative: Fever Positive: Chest Pain, Other - Positive irregular rhythm Positive: Shortness Of Breath, Cough - Productive, Other - Positive wheezing Positive: Vomiting, Nausea Positive: Edema - Bilateral LE Positive: Other - Positive bilateral LE erythema All Other Systems Reviewed And Are Negative: Yes Physical Exam - Summary Physical Exam Summary: Constitutional: Well-developed, Well-nourished, Alert. (-) Distressed Skin: Warm, Dry HENT: Normocephalic; Atraumatic Eyes: Conjunctiva normal Neck: Musculoskeletal ROM normal neck. (-) JVD, (-) Stridor, (-) Tracheal deviation Cardio: Rhythm regular, rate normal, Heart sounds normal; Intact distal pulses; Radial pulses are 2+ and symmetric. (-) Murmur Pulmonary/Chest wall: Effort normal. (-) Respiratory distress, (-) Rales. Speaks in full sentences, inspiratory and expiratory wheezing. Abd: Soft, (-) tenderness, (-) Distension, (-) Guarding, (-) Rebound Musculoskeletal: (-) Edema Lymph: (-) Cervical adenopathy Neuro: Alert, Oriented x3 Psych: Mood and affect Normal Triage Information Reviewed: Yes Vital Signs On Initial Exam: Initial Vitals Temp Pulse Resp BP Pulse Ox 99.4 F 96 16 135/85 89 06/07/19 09:59 06/07/19 09:59 06/07/19 09:59 06/07/19 09:59 06/07/19 09:59 Vital Signs Reviewed: Yes Procedures - Sedation Patient Received Moderate/Deep Sedation with Procedure: No Diagnostics - Vital Signs Vital Signs Temp Pulse Resp BP Pulse Ox 06/07/19 09:59 99.4 F 96 16 135/85 89 - Laboratory Result Diagrams: 06/07/19 10:27 06/07/19 10:27 Lab Statement: Any lab studies that have been ordered have been reviewed, and results considered in the medical decision making process. - Radiology Chest X-ray Radiology Interpretation Completed By: Radiologist Summary of Radiographic Findings: Chest X-ray IMPRESSION: CARDIOMEGALY. Reviewed by Dr. Tarango. - EKG 10:03 Cardiac Rate: Other Rate - [address] Segment: Normal Ectopy: None Summary of EKG Findings: EKG at 10:03 shows paced rhythm with 61 BPM, no evidence for STEMI per Sgarbossa criteria. Reviewed and interpreted by Dr. Tarango. Re-Evaluation - Re-Evaluation First Eval Re-Evaluation Time: 11:38 Change: Improved Comment: At 11:38, patient feels better. When asked about a cardiac stress test , he states he has never had one in his life. Course/Dx - Course Assessment/Plan: Patient is here with shortness of breath and chest pain. Patient thought he was going to last night. Patient has a history of COPD and was mildly wheezy on arrival so a DuoNeb was given. Patient had an elevated troponin 0.03. Patient was admitted recently for similar symptoms where an echocardiogram was performed. Patient has never had a stress test per him. Given patient's chest pain and elevated troponin, patient was admitted to the hospital. - Diagnoses Provider Diagnoses: COPD exacerbation, Elevated troponin, Chest pain - Physician Notifications Discussed Care of Patient With: Christi Disla - At 11:59, Christi Disla reviewed the patients case and agrees to admit the patient to [facility]. Time Discussed With Above Provider: 11:59 Instructed by Provider To: Admit As Inpatient Discharge ED - Sign-Out/Discharge Documenting (check all that apply): Patient Departure - Admit - Discharge Plan Condition: Stable Disposition: ADMITTED TO [facility] Referrals: [facility] [Outside] - Billing Disposition and Condition Condition: STABLE Disposition: Admitted to [facility] - Attestation Statements Document Initiated by Scribe: Yes Documenting Scribe: Fay Manuel Provider For Whom Scribe is Documenting (Include Credential): Tyree Tarango MD Scribe Attestation: Fay Frias, scribed for Tyree Tarango MD on 06/07/19 at 1315. Scribe Documentation Reviewed: Yes Provider Attestation: The documentation as recorded by the scribe, Fay Manuel accurately reflects the service I personally performed and the decisions made by me, Tyree Tarango MD Status of Scribe Document: Viewed
[2019-06-07] MEDS ORDERED: Albuterol/Ipratropium NEB.SOL* Albuterol 2.5 MG/Ipratropium 0.5 MG 3 ML INH ONE (10:15)
[2019-06-07 10:36] LABS: ABS Eosinophils 1.1 10^3/ul (0-0.6); ABS Lymphocytes 0.8 10^3/ul (1.0-4.8); ABS Monocytes 0.6 10^3/ul (0-0.8); ABS Neutrophils 4.9 10^3/ul (1.5-7.7); Hematocrit 36 % (42-52); Lymphocyte % 10.2 %; Mean Corpuscular HGB Conc 34 g/dL (31-36); Mean Corpuscular Hemoglobin 33 pg (27-31); Mean Corpuscular Volume 97 fL (80-94); Mean Platelet Volume 6.9 fL (7.4-10.4); Nucleated Red Blood Cells % 0.1; Platelet Count 160 10^3/uL (150-450); Red Blood Count 3.66 10^6 /uL (4.18-5.48); Red Cell Distribution Width 13 % (10-15); White Blood Count 7.4 10^3/uL (3.5-10.8)
[2019-06-07 10:43] LABS: Influenza A Molecular NEGATIVE (Negative); Influenza B Molecular NEGATIVE (Negative)
[2019-06-07 10:51] LABS: ALT 22 U/L (7-52); AST 27 U/L (13-39); Albumin 3.8 g/dL (3.2-5.2); Albumin/Globulin Ratio 1.4 (1-3); Alkaline Phosphatase 74 U/L (34-104); Anion Gap 3 mmol/L (2-11); BUN/Creatinine Ratio 23.2 (8-20); Blood Urea Nitrogen 16 mg/dL (6-24); CO2 Carbon Dioxide 39 mmol/L (22-32); Calcium 9.2 mg/dL (8.6-10.3); Chloride 97 mmol/L (101-111); EGFR African American 131.9 (>60); Globulin 2.8 g/dL (2-4); Glucose 104 mg/dL (70-100); Potassium 4.2 mmol/L (3.5-5.0); Sodium 139 mmol/L (135-145); Total Protein 6.6 g/dL (6.4-8.9)
[2019-06-07 11:04] LABS: Troponin I 0.03 ng/mL (<0.03)
[2019-06-07 11:27] LABS: INR 2.12 (0.82-1.09)
[2019-06-07] MEDS ORDERED: Aspirin 81 mg CHEW TAB* 81 MG TAB.CHEW PO ONE (11:38)
[2019-06-07] MEDS ORDERED: Acetaminophen TAB* 325 MG PO PRN (12:59)
[2019-06-07 13:27] LABS: Digoxin 2.1 ng/ml (0.8-2.0)
[2019-06-07] MEDS ORDERED: Dextrose 50% VIAL 50 ml IV PUSH PRN (13:28)
[2019-06-07] MEDS ORDERED: Enoxaparin(*) 40 MG/0.4 ML SYR SUBCUT SCH (13:30)
[2019-06-07 13:40] LABS: TSH (Thyroid Stimulating Horm) 0.07 mcIU/mL (0.34-5.60)
[2019-06-07 13:56] LABS: Troponin I 0.04 ng/mL (<0.03)
[2019-06-07] MEDS: Warfarin TAB(*) 5 MG PO SCH (15:29)
--- NOTE | 2019-06-07 15:39 | HP ---
CC: Dr. Villaseñor * [facility] MEDICINE HISTORY AND PHYSICAL: DATE OF ADMISSION: 06/07/19 PROVIDER: Stefany Ramos NP PRIMARY CARE PROVIDER: Dr. Villaseñor. ATTENDING PHYSICIAN WHILE IN THE HOSPITAL: Dr. Christi Disla * (dictated by Stefany Ramos NP). CHIEF COMPLAINT: 1. Tightness in the chest. 2. Shortness of breath. HISTORY OF PRESENT ILLNESS: Mr. Marie is an 84-year-old gentleman with past medical history significant for atrial fibrillation, on chronic anticoagulation with Coumadin; hyperlipidemia; diabetes; hypothyroid; COPD; asthma; peripheral vascular disease; obstructive sleep apnea, on CPAP; history of prior cardiac arrest, who presented to the emergency room with the complaints of chest tightness, sore throat and shortness of breath. The patient reports that he woke up at approximately 2 a.m. complaining of tightness in the chest associated with shortness of breath and a sore throat. The patient does report that he attempted to use his nebulizer at home with no relief. He also reports that he tried wearing his home O2, again with no relief. The patient does report that yesterday he stopped taking his albuterol and Atrovent nebulizers due to reporting that the nebulization fluid was cloudy. The patient does report that when he woke this morning that his arms and legs were both shaking and that he was having trouble breathing. He does feel that his CPAP machine is no longer working correctly. The patient does report that he reported to [facility] and was found to have an O2 saturation of 85% at [facility]. He was given a nebulizer and transported to the [facility] via EMS due to his shortness of breath and chest tightness. The patient denies any previous episodes of chest tightness associated with exertion or physical activity. While in the emergency room, the patient had routine lab work drawn, he was found to have elevated troponin at 0.03. He was given a nebulizer in the emergency room and the patient does report that after having the nebulizer in the emergency room, the chest tightness and shortness of breath improved significantly, but he does continue to complain of some mild tightness in the chest. He also complains of bilateral shoulder pain, worse with movement. He does report chronic shoulder pain times several years, but has been worse x1 month. He does report increased pain with palpation and movement. Due to the patient's elevated troponin and complaints of chest tightness, Hospital Medicine was asked to see and evaluate the patient for admission. PAST MEDICAL HISTORY: Significant for: 1. Atrial fibrillation, on Coumadin. 2. Hyperlipidemia. 3. Diabetes, type 2. 4. Hypothyroid. 5. COPD. 6. Asthma. 7. Peripheral vascular disease. 8. Obstructive sleep apnea, on CPAP. 9. History of cardiac arrest. PAST SURGICAL HISTORY: 1. Left hip arthroplasty. 2. Hernia repair x3. 3. Colon resection due to diverticulitis. 4. Bilateral shoulder surgeries, left x1, right x3 surgeries. 5. Left wrist surgery. 6. Neck surgery x2. MEDICATIONS: Home medications include: 1. Albuterol nebulizer 1 neb every 4 hours as needed for shortness of breath. 2. Digoxin 0.25 mg p.o. daily. 3. Benadryl 25 mg p.o. at h.s. 4. Inspra 25 mg p.o. daily. 5. Finasteride 5 mg at bedtime. 6. Advair 250/50, 1 inhaled daily. 7. Lasix 20 mg p.o. daily. 8. Gabapentin 600 mg at bedtime. 9. Levothyroxine 137 mcg p.o. daily. 10. Metformin 500 mg p.o. b.i.d. 11. Singulair 10 mg p.o. daily. 12. Requip 1 mg at bedtime. 13. Simvastatin 10 mg p.o. daily. 14. Coumadin 7.5 mg daily this week and then will resume 5 mg p.o. daily. FAMILY HISTORY: His father from congestive heart failure. No reported history of diabetes within the family. SOCIAL HISTORY: The patient quit smoking approximately 40 years ago; prior to that, he smoked a pack a day for 20 years. He does report occasional alcohol use. No illicit drug use. He is . He lives with his . Surrogate decision maker in the event he is unable to make his own decisions is his , Chelle. He is a full code. REVIEW OF SYSTEMS: He denies any fever, chills. He does report chest tightness with associated shortness of breath and mild increased swelling in his lower extremities. He does report a productive cough with light brown secretions. Denies any hemoptysis. He does report worsening shortness of breath that started approximately 2 a.m. Denies any nausea, vomiting, diarrhea , abdominal pain, gross hematuria, dysuria. Denies any focal weakness, sensory loss, visual complaints, dysphagia. He does complain of joint aches of bilateral shoulders x1 month. Denies any rashes, lesions, open sores, psychosis , or anxiety. PHYSICAL EXAMINATION GENERAL: At this time, Mr. Marie is an 84-year-old male. He is alert and oriented, resting on the stretcher in the emergency room. He is in no acute distress. VITAL SIGNS: Blood pressure 121/60, heart rate 60, respirations 17, O2 saturation 98%, temperature as 99.4. HEENT: Head is atraumatic, normocephalic. Eyes: EOMs are intact. Sclerae are anicteric and not pale. Oral mucosa is moist. NECK: Supple. LUNGS: With expiratory wheezes throughout bilaterally. CARDIAC: S1 and S2. Regular rate and rhythm. No rubs or gallops. ABDOMEN: Soft and nontender. Bowel sounds are present x4. MUSCULOSKELETAL: Moves all 4 extremities. There is no clubbing or cyanosis. He does have mild nonpitting edema noted to his lower extremities. Pedal pulses are +1 bilaterally. SKIN: He does have bilateral lower extremity brownish discoloration. NEUROLOGIC: He is awake, alert and oriented x3. His speech is clear. Thought process is intact. There is no gross focal deficit. DIAGNOSTIC STUDIES/LAB DATA: WBCs are 7.4, RBCs 3.66, hemoglobin 12, hematocrit is 36, platelet count is 160, INR is 2.12. Sodium 139, potassium 4.2 , chloride 97, carbon dioxide is 39, anion gap is 3, BUN was 16, creatinine 0.69 , glucose is 104, calcium 9.2. ASTs were 27, ALTs were 22, alkaline phosphatase is 74. Troponin was 0.03 x1. BNP was 72. TSH is currently pending. Flu A and B were negative and digoxin level is currently pending. He did have a chest x-ray that showed cardiomegaly. He had an electrocardiogram, which showed a paced rhythm at a rate of 61. ASSESSMENT AND PLAN: Mr. Marie is an 84-year-old male with past medical history significant for chronic obstructive pulmonary disease; asthma; atrial fibrillation, on chronic anticoagulation; type-2 diabetes; hyperlipidemia; obstructive sleep apnea; peripheral vascular disease and history of cardiac arrest postoperatively, who presented to the emergency room with complaints of chest pain and shortness of breath. He will be admitted under observation for: 1, Chest pain. The patient does complain of chest tightness. We will bring him in and rule out acute coronary syndrome. I do suspect this is related to demand ischemia from underlying chronic obstructive pulmonary disease exacerbation. The patient does have a mildly elevated troponin was 0.03 with a history of atrial fibrillation and pacemaker placement. I will continue to trend his troponin. The patient did receive 324 mg of aspirin in the emergency room. I will continue him on aspirin 81 mg p.o. daily. He will continue on atorvastatin 10 mg p.o. daily. I will repeat a lipid profile in the a.m. and adjust his Lipitor as needed. We will get a nuclear stress test, chemical, as the patient does have a pacemaker. The patient does have HEART score of 4 giving him a 12 to 16.6 risk of adverse cardiac events. The patient did have a recent transthoracic echocardiogram on 05/25/19. 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 I do believe his elevated troponin is related to demand ischemia from underlying COPD exacerbation. 2. Chronic obstructive pulmonary disease. I expect that the patient does have moderate chronic obstructive pulmonary exacerbation at this time. He does have expiratory wheezes throughout. I will start him on prednisone 50 mg p.o. daily. We will continue with albuterol and Atrovent nebulizers as needed for shortness of breath. We will continue his Advair inhaler. He can have supplemental oxygen as needed to maintain O2 saturations greater than 92%. 3. Hypertension. The patient does not currently take any medications for hypertension. We will continue to monitor is blood pressure. 4. Type-2 diabetes. I will hold his metformin and place him on lispro sliding scale with fingersticks a.c. and h.s. 5. Hyperlipidemia. He will continue atorvastatin 10 mg p.o. daily. 6. Atrial fibrillation. The patient will continue on Coumadin and hold his digoxin as his digoxin level is 2.1. I will repeat a digoxin level in the AM. He will need his digoxin resumed at a reduced dose due to his current digoxin toxicity. 7. Benign prostatic hypertrophy. He will continue Proscar 5 mg p.o. at bedtime. 8. Tremor. He will continue on primidone, Requip as previous prescribed. 9. Hypothyroid. TSH is 0.07. I will hold and levothyroxine for today and resume at a reduced dose. According to up to date you can hold levothyroxine for 7 days and then resume at a reduced dose. 10. FEN. He can have regular diet. 11. Code status, he is a full code. 12. DVT prophylaxis. He will continue on Coumadin. His INR is therapeutic at this time at 2.12. TIME SPENT: Time spent on this admission was 60 minutes. Greater than half that time was spent at the bedside reviewing events leading thus far to his hospitalization, performing physical exam and reviewing my plan of care. I have discussed with my attending, Dr. Christi Disla; she is in agreement with my plan. STEFANY RAMOS, MAYELA [id number]/[facility] #: [id number] AD
[2019-06-07 17:16] LABS: Troponin I 0.04 ng/mL (<0.03)
[2019-06-07] MEDS: Gabapentin CAP(*) 300 MG PO SCH (17:18)
[2019-06-07] MEDS: Insulin LISPRO* 1 UNITS UNIT SUBCUT SCH (17:19)
[2019-06-07] MEDS: Albuterol/Ipratropium NEB.SOL* Albuterol 2.5 MG/Ipratropium 0.5 MG 3 ML INH PRN (18:24)
[2019-06-07] MEDS ORDERED: Primidone 50 mg TAB (*) PO SCH (21:00)
[2019-06-07] MEDS ORDERED: Finasteride TAB* 5 MG PO SCH (21:00)
[2019-06-07] MEDS ORDERED: rOPINIRole TAB* 1 MG PO SCH (21:00)
[2019-06-08] MEDS: Albuterol/Ipratropium NEB.SOL* Albuterol 2.5 MG/Ipratropium 0.5 MG 3 ML INH PRN ×3 (03:29→16:43)
[2019-06-08] MEDS ORDERED: Levothyroxine TAB* 137 MCG TAB PO SCH (06:00)
[2019-06-08] MEDS: Insulin LISPRO* 1 UNITS UNIT SUBCUT SCH ×3 (07:01→18:04)
[2019-06-08 07:51] LABS: INR 1.86 (0.82-1.09)
[2019-06-08 07:54] LABS: BUN/Creatinine Ratio 21.1 (8-20); EGFR African American 164.4 (>60); EGFR Non-African American 135.9 (>60); Potassium 4.2 mmol/L (3.5-5.0)
[2019-06-08 08:15] LABS: Digoxin 1.3 ng/ml (0.8-2.0)
[2019-06-08] MEDS ORDERED: Furosemide TAB* 20 MG PO SCH (09:00)
[2019-06-08] MEDS ORDERED: Montelukast Sodium TAB* 10 MG PO SCH (09:00)
[2019-06-08] MEDS ORDERED: Atorvastatin* 10 MG TAB PO SCH (09:00)
[2019-06-08] MEDS ORDERED: Aspirin 81 mg CHEW TAB* 81 MG TAB.CHEW PO SCH (09:00)
[2019-06-08] MEDS ORDERED: Digoxin TAB* 0.25 MG PO SCH (09:00)
[2019-06-08] MEDS: Warfarin TAB(*) 5 MG PO SCH (10:11)
[2019-06-08] MEDS ORDERED: Regadenoson* 0.4 MG/5 ML SYRINGE ONE (12:12)
[2019-06-08] MEDS ORDERED: Aminophylline IV* 25 MG/ML 10 ML VIAL ONE (12:39)
[2019-06-08 15:48] VITALS: BP 122/86
[2019-06-08] MEDS: Gabapentin CAP(*) 300 MG PO SCH (18:05)
--- NOTE | 2019-06-08 23:37 | DS ---
CC: Dr. Fiona Villaseñor * DISCHARGE SUMMARY: DATE OF ADMISSION: 06/07/19 DATE OF DISCHARGE: 06/08/19 PRIMARY CARE PROVIDER: Dr. Fiona Villaseñor. ATTENDING PHYSICIAN: Dr. Mariano Deutsch.* (DICTATED BY BRENDON VENTURA NP) PRIMARY DIAGNOSES: 1. Mild chronic obstructive pulmonary disease exacerbation. 2. Hypothyroidism. 3. Atrial fibrillation. SECONDARY DIAGNOSES: 1. Hypertension. 2. Diabetes mellitus, type 2. 3. Hyperlipidemia. 4. Benign prostatic hyperplasia. STUDIES WHILE IN THE HOSPITAL: 1. EKG on 06/07/19 showed a ventricular paced rhythm with a rate of 61, which appears consistent with previous EKG on file. 2. Chest x-ray on 06/07/19 reads as cardiomegaly. 3. Nuclear cardiac stress test on 06/08/19 reads as inferior wall defect appears worse on the rest than on stress and likely represents artifact. No definite reversible change is noted. Assessment is low risk. HISTORY OF PRESENT ILLNESS AND HOSPITAL COURSE: Mr. Marie is an 84-year- old male with past medical history of AFib, hypertension, diabetes, hypothyroidism, and COPD, who presented to the emergency room on 06/07/19 with complaints of shortness of breath and chest tightness. Please see the history and physical by Stefany Ramos NP, for complete summary of the events leading up to this hospitalization. In short, the patient was hospitalized at this facility from 05/24/19 to 05/25/19 for mild COPD exacerbation and hematuria. He was discharged home and has been doing relatively well, though woke up on the day of presentation with shortness of breath and associated chest tightness. He has not been using his nebulizers as he was previously as he felt that the nebulizer fluid appeared cloudy. He also did not feel as though his CPAP machine was working correctly. He went to urgent care and was found to be hypoxic on room air, so was brought to the emergency room. In the emergency room, he was noted to have a minimally elevated troponin of 0.03. He did receive 1 nebulizer in the emergency room and had significant improvement in shortness of breath and chest tightness at that point, although due to cardiac concerns, he was admitted by the hospitalist service. The patient had an uneventful night. He had no further episodes of shortness of breath or chest tightness. He had a cardiac stress test this morning, which was noted to be low risk. The patient did qualify for oxygen and is requiring 2 L of oxygen at rest and with ambulation to maintain saturations above 88%. On exam, he reports feeling well. He offers no complaints and is anxious to return home. He does feel as though the DuoNeb he received here in the hospital were more effective than his albuterol nebulizers at home. PHYSICAL EXAM: He is alert and oriented x4 with no focal neurological deficits. Heart has a regular rate and rhythm. Lungs are diminished throughout with faint wheezing. Of note, the patient was noted to have a minimally elevated digoxin level on admission of 2.1 and a low TSH of 0.07 and so digoxin and levothyroxine dosing was adjusted. Mr. Marie is stable for discharge. Most recent vitals are as follows: Temp 97.4, heart rate 56, respiratory rate 18, oxygen saturation 100% on 2 L, blood pressure 122/86. DISCHARGE MEDICATIONS: New medications: 1. DuoNeb 1 neb t.i.d. p.r.n. shortness of breath, wheezing. 2. Aspirin 81 mg p.o. daily. 3. Medrol Dosepak 1 pack per instruction. Changed medications: 1. Digoxin 0.125 mg p.o. daily (previously was 0.25 mg daily). 2. Levothyroxine 88 mcg p.o. daily (previously was 137 mcg daily). Continued medications: 1. Eplerenone 25 mg p.o. every other day. 2. Finasteride 5 mg p.o. at bedtime. 3. Furosemide 20 mg p.o. daily. 4. Gabapentin 600 mg p.o. at bedtime. 5. Singulair 10 mg p.o. daily. 6. Primidone 50 mg p.o. at bedtime. 7. Requip 1 mg p.o. at bedtime. 8. Simvastatin 10 mg p.o. daily. 9. Warfarin 7.5 mg p.o. daily. 10. Diphenhydramine 50 mg p.o. at bedtime. 11. Metformin 500 mg p.o. b.i.d. Discontinued medications: 1. Albuterol nebulizer. DISCHARGE PLAN: Mr. Marie will be discharged home. Activity will be as tolerated. Diet will be heart healthy. The patient has been instructed to wear 2 L of oxygen at all times and has been sent home with a referral to [facility]. Case management has been in touch with [facility] and they will deliver further supplies tomorrow. Medications were noted above. I have sent in a month worth of DuoNeb for the patient to use as these have significantly helped his shortness of breath and I have prescribed a Medrol Dosepak, which he should complete because of the mild COPD exacerbation. Again, I have decreased his Digoxin and levothyroxine dosing based on dig level and TSH respectively. He will need to follow up with his primary care provider to have a repeat dig level and repeat TSH. He can continue his other usual medications as noted above. He should follow up with his primary care provider in the next 4 to 7 days and should follow up with a plastics fitter as previously advised. He should return to the emergency room or nearest hospital for any worsening of symptoms, shortness of breath, lightheadedness, dizziness, chest discomfort, high fevers, chills, night sweats, loss of consciousness or any other worrisome signs or symptoms. DISCHARGE CONDITION: Stable. DISCHARGE DISPOSITION: Home. This is a summarized report of a complex medical history and hospital stay. For further details, please see the entire medical record. TIME SPENT: Approximately 45 minutes was spent on this discharge. BRENDON VENTURA NP [id number]/[facility] #: [id number] AD
[2019-06-09] MEDS ORDERED: CMC:Epleronone (NF) 25 MG TAB PO SCH (09:00)
== END 2019-06-08 18:22 | disposition home or self-care (01) ==
LOC: ED 09:54 → MEDTELE 12:59
PROVIDERS: ADMIT Internal Medicine; ATTEND Internal Medicine
DX: J44.1 Chronic obstructive pulmonary disease with (acute) exacerbation (principal); E03.9 Hypothyroidism, unspecified; I48.91 Unspecified atrial fibrillation; R06.02 Shortness of breath; R05 Cough; R25.1 Tremor, unspecified; I10 Essential (primary) hypertension; E11.9 Type 2 diabetes mellitus without complications; E78.5 Hyperlipidemia, unspecified; N40.0 Benign prostatic hyperplasia without lower urinary tract symptoms; Z79.899 Other long term (current) drug therapy; Z79.84 Long term (current) use of oral hypoglycemic drugs; Z79.01 Long term (current) use of anticoagulants; Z87.891 Personal history of nicotine dependence
CPT/HCPCS: 36415; 71046; 78452; 80048; 80053; 80162; 83880; 84443; 84484; 85025; 85610; 93005; 93017; 94640; 99284; A9270-GY; A9502; G0378; J0280; J2785; J7512

== ENCOUNTER 2019-06-27 13:44 | Emergency (ER) | payer MEDICARE ==
--- OUTSIDE RECORDS SUMMARY | 2019-06-27 13:50 | XMS REPORT | Continuity of Care Document ---
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 Medicine Problems Description No Information Available Social History Type Date Description Comments Sex Unknown ETOH Use Occasionally consumes beer 6 beers /month Tobacco Use Start: Unknown End: Patient is a former smoker Recreational Drug Use Denies Drug Use Smoking Status Reviewed: 06/11/19 Patient is a former smoker Enjoy Exercising Enjoys exercising Allergies, Adverse Reactions, Alerts Active Allergies Reaction Severity Comments Date Percocet hematuria 06/11/2019 Medications Active Medications SIG Qnty Indications Ordering Date Provider Simvastatin 1 by mouth at 180tabs José Luis Otero 06/11/2019 10mg Tablets bedtime Flori Vines Primidone 1 tablet at Unknown 06/10/2019 50mg Tablets bedtime Finasteride Unknown 06/10/2019 5mg Tablets Warfarin Sodium Take as Unknown 06/10/2019 7.5mg Tablets directed Metformin HCL 1 by mouth Unknown 06/10/2019 500mg Tablets twice a day Gabapentin 1 one by mouth Unknown 06/10/2019 300mg Capsules day time two tabs at night Furosemide 1 by mouth Unknown 20mg Tablets every odd day Levothyroxine Sodium 1 by mouth Unknown 137mcg every day Tablets Montelukast Sodium 1 by mouth Unknown 10mg Tablets every day Eplerenone tab by mouth Unknown 25mg Tablets every day Digoxin 0.25MG One tab by Unknown mouth daily Methylprednisolone medrol dosepak Unknown 4mg Tablets take as directed Diphenhydramine HCL 1 tab by mouth Unknown 25mg 30 minutes Capsules prior to infusion Immunizations Description No Information Available Vital Signs Date Vital Result Comment 06/11/2019 3:20pm Height 72 inches 6'0" Weight 170.38 lb with shoes Heart Rate 60 /min right radial BP Systolic 138 mmHg Rue, reg cuff BP Diastolic 74 mmHg Rue, reg cuff BP Systolic Sitting 136 mmHg Rue, reg cuff BP Diastolic Sitting 80 mmHg Rue, reg cuff BP Systolic Standing 128 mmHg Rue, reg cuff BP Diastolic Standing 76 mmHg Rue, reg cuff O2 % BldC Oximetry 91 % room air BMI (Body Mass Index) 23.1 kg/m2 Ejection Fraction 55%-60% 05/25/19 echocardiogram Results Test Acquired Date Facility Test Result H/L Range Note Laboratory test 06/07/2019 [facility] Troponin- 0.04 ng/mL Critical high <0.03 [address] I (TnI) [place] [address] [phone] 1 Result TnIDx:0.04 Called to [id number] at: 13:54:35 by:[id number] Read back by: [id number] Troponin-I testing on Plasma Separator Tubes (PST) has a known false positive rate of 0.20-0.40%. All positive troponins reflex immediately to secondary confirmatory testing. Using the [employer] 800 Access Immunoassay systems, the 99th percentile upper reference limit was demonstrated to be < 0.03 ng/mL. Procedures Date Code Description Status 06/11/2019 28320 EKG Tracing & Interpretation Completed 05/25/2019 15998 ECHO Transthorasic Realtime 2D W Doppler & Color Flow Hosp Completed Medical Devices Description No Information Available Encounters Type Date Location Provider Dx Diagnosis Office Visit 05/25/2019 [facility] Angelic Cotto, J44.1 Chronic obstructive 10:36a Assoc,pc ENTRY LEVEL PROJECT COORDINATOR pulmonary disease w Hospitalists (acute) exacerbation R31.9 Hematuria, unspecified I48.91 Unspecified atrial fibrillation E78.5 Hyperlipidemia, unspecified E11.9 Type 2 diabetes mellitus without complications E03.9 Hypothyroidism, unspecified N40.0 Benign prostatic hyperplasia without lower urinry tract symp I73.9 Peripheral vascular disease, unspecified Office Visit 05/24/2019 10:36a [facility] Angelic Cotto, J44.1 Chronic Assoc,pc ENTRY LEVEL PROJECT COORDINATOR obstructive Hospitalists pulmonary disease w (acute) exacerbation R31.9 Hematuria, unspecified R60.0 Localized edema I48.91 Unspecified atrial fibrillation E11.9 Type 2 diabetes mellitus without complications E03.9 Hypothyroidism, unspecified N40.0 Benign prostatic hyperplasia without lower urinry tract symp Assessments Date Code Description Provider 06/11/2019 J44.1 Chronic obstructive pulmonary disease with José Luis Vines M.D. (acute) exacerbation 06/11/2019 R31.9 Hematuria, unspecified José Luis Vines M.D. 06/11/2019 I48.91 Unspecified atrial fibrillation José Luis Vines M.D. 06/11/2019 E78.5 Hyperlipidemia, unspecified José Luis Vines M.D. 06/11/2019 E11.9 Type 2 diabetes mellitus without José Luis Vines M.D. complications 06/11/2019 E03.9 Hypothyroidism, unspecified José Lusi Vines M.D. 06/11/2019 I35.0 Aortic valve stenosis José Luis Vines M.D. 06/11/2019 I10 Benign hypertension José Luis Vines M.D. 05/25/2019 R60.9 Edema, unspecified José Luis Vines M.D. 05/25/2019 J44.1 Chronic obstructive pulmonary disease with Angelic Kirti, ENTRY LEVEL PROJECT COORDINATOR (acute) exacerbation 05/25/2019 R31.9 Hematuria, unspecified Angelic Kirti, ENTRY LEVEL PROJECT COORDINATOR 05/25/2019 I48.91 Unspecified atrial fibrillation Angelic Kirti, ENTRY LEVEL PROJECT COORDINATOR 05/25/2019 E78.5 Hyperlipidemia, unspecified Angelic Kirti, ENTRY LEVEL PROJECT COORDINATOR 05/25/2019 E11.9 Type 2 diabetes mellitus without Angelic Kirti, ENTRY LEVEL PROJECT COORDINATOR complications 05/25/2019 E03.9 Hypothyroidism, unspecified Angelic Kirti, ENTRY LEVEL PROJECT COORDINATOR 05/25/2019 N40.0 Benign prostatic hyperplasia without lower Angelic Kirti, ENTRY LEVEL PROJECT COORDINATOR urinary tract symptoms 05/25/2019 I73.9 Peripheral vascular disease, unspecified Angelic Kirti, ENTRY LEVEL PROJECT COORDINATOR 05/24/2019 J44.1 Chronic obstructive pulmonary disease with Angelic Kirti, ENTRY LEVEL PROJECT COORDINATOR (acute) exacerbation 05/24/2019 R31.9 Hematuria, unspecified Angelic Kirti, ENTRY LEVEL PROJECT COORDINATOR 05/24/2019 R60.0 Localized edema Angelic Kirti, ENTRY LEVEL PROJECT COORDINATOR 05/24/2019 I48.91 Unspecified atrial fibrillation Angelic Kirti, ENTRY LEVEL PROJECT COORDINATOR 05/24/2019 E11.9 Type 2 diabetes mellitus without Angelic Kirti, ENTRY LEVEL PROJECT COORDINATOR complications 05/24/2019 E03.9 Hypothyroidism, unspecified Angelic Kirti, ENTRY LEVEL PROJECT COORDINATOR 05/24/2019 N40.0 Benign prostatic hyperplasia without lower Angelic Kirti, ENTRY LEVEL PROJECT COORDINATOR urinary tract symptoms Plan of Treatment Future Appointment(s):11/03/2019 11:00 am - José Luis Vines M.D. at [facility]07/12/2019 10:30 am - Mile Dumont NKath at [facility]2019 3:20 pm - Deandra Edwards DO at [facility] Internal Medicine - Suite 06/11/2019 - José Luis Vines M.D.J44.1 Chronic obstructive pulmonary disease with ( acute) rykjgpjudounN26.9 Hematuria, unspecifiedRecommendations:suggest followup with PMD and oabcidzxnS32.91 Unspecified atrial fibrillationFollow up:medtronic pacer check please obtain cardiology records from Dr. Cuauhtemoc Cordero , [place] ov [place] 1 m ov J[facility] 4 m check INR enroll in xnwqdzE65.5 Hyperlipidemia, zklvsebsbkyE63.9 Type 2 diabetes mellitus without wzjnhffvyruepE21.9 Hypothyroidism, fhftsvqgjxzB60.0 Aortic valve tgbrptjjS92 Benign hypertensionNew Xrays:US Aorta Screening, Scheduled: 06/25/19 Functional Status Description No Information Available Mental Status Description No Information Available Referrals Description No Information Available
--- OUTSIDE RECORDS SUMMARY | 2019-06-27 13:50 | XMS REPORT | Continuity of Care Document ---
:1935 External Reference #:[id number] Author Name Nic Bolaños MD Address [address] [place] [address] Care Team Providers Name Role Phone Nic Bolaños MD - Family Care Team Information Crate Maker [phone] Medicine [employer] - [employer] Care Team Information Crate Maker Problems Active Problems Provider Date Type 2 diabetes mellitus Fiona Villaseñor M.D. Onset: 05/13/2019 Hypothyroidism Nic Bolaños MD Onset: 05/31/2019 Pulmonary hypertension Nic Bolaños MD Onset: 05/31/2019 Hyperlipidemia Nic Bolaños MD Onset: 05/31/2019 Atrial fibrillation Nic Bolaños MD Onset: 05/31/2019 Chronic obstructive lung disease Nic Bolaños MD Onset: 05/31/2019 Social History Type Date Description Comments Sex Unknown Tobacco Use Start: Unknown End: Unknown Former Cigarette Smoker 1 Pack Daily ETOH Use Currently consumes alcohol Tobacco Use Start: Unknown Nonsmoker Smoking Status Reviewed: 06/14/19 Nonsmoker Allergies, Adverse Reactions, Alerts Active Allergies Reaction Severity Comments Date Percocet blood in urine 05/13/2019 Prednisone Hematuria Severe 05/31/2019 Medications Active Medications SIG Qnty Indications Ordering Date Provider Medrol as directed 1units Nic Lew 06/21/2019 4mg TBPK MD Mami Tramadol HCL 1 by mouth every 28tabs Nic Lew 06/21/2019 50mg 6 hours as needed MD Mami Tablets Azithromycin 2 tabs today, 6tabs Nic Lew 06/21/2019 250mg then 1 tab daily MD Mami Tablets for next 4 days Ipratropium Use 1 Inhalation 1620units Nic Lew 05/31/2019 [place]/Albuterol Via Nebulizer MD Mami Sulfate Every 4 Hours as Needed 0.5-2.5(3)mg/3ML Solution Oxygen 2 liters nasal Z79.01 Fiona McgrathGia 05/13/2019 cannula at night Flori Villaseñor Montelukast Sodium 1 by mouth every Unknown day 10mg Tablets Digoxin 1 by mouth every Unknown 125mcg day Tablets Levothyroxine Sodium 1 by mouth every Unknown day 88mcg Tablets Primidone 2 po at hs Unknown 50mg Tablets Gabapentin 1 by mouth once Unknown 300mg in the morning Capsules and 1 tab at night Metformin HCL 1 by mouth twice Unknown 500mg daily Tablets Finasteride 1 by mouth every Unknown 5mg day Tablets Eplerenone 1 by mouth every 45tabs Nic Lew 25mg other day MD Mami Tablets Warfarin Sodium 1 by mouth every 90Tablet Z79.01 Milagro Gómez 5mg day or as MAYELA Mendoza Tablets directed by provider I48.20 Furosemide 1 by mouth every day Unknown 20mg Tablets Simvastatin take one tablet by mouth at Unknown 40mg Tablets bedtime History Medications Medrol as directed 1units Nic Lew 06/10/2019 - 4mg TBPK MD Mami 06/10/2019 Prednisone take 5 by mouth 30tabs J44.1 Milagro Mendoza, 05/21/2019 - 10mg daily for 2 WALKING DRAGLINE OPERATOR 05/31/2019 Tablets days, then 4 for 2 days, then 3 for 2 days, then 2 for 2 days, then 1 daily until gone Immunizations Description No Information Available Vital Signs Date Vital Result Comment 06/21/2019 1:00pm BP Systolic 110 mmHg BP Diastolic 50 mmHg Heart Rate 64 /min Body Temperature 98.6 F Respiratory Rate 72 /min O2 % BldC Oximetry 96 % on room air sitting Weight 176.00 lb 06/14/2019 2:23pm BP Systolic 142 mmHg BP Diastolic 70 mmHg Heart Rate 64 /min Body Temperature 97.9 F Respiratory Rate 16 /min O2 % BldC Oximetry 92 % on room air Weight 174.50 lb shoes on Results Test Acquired Date Facility Test Result H/L Range Note Laboratory test 06/21/2019 [facility] ([facility]) 1.6 Low 2.0-3.0 finding (607)- - Ua - Micro (Fma) 06/14/2019 [facility] Appearance cloudy (607)- - Color brown Glucose, Urine (Fma/CMC/CTX) neg Bilirubin neg Ketones neg SP Grav 1.015 Blood large PH 7.5 Protein trace Urobil 0.2 Nitrite neg Leukocytes (Fma/CMC/Centrex) neg Hyaline - /Lpf Granular - /Lpf WBC (Fma,Centrex) 0-1 RBC 20-30 Mucus (Fma/CBC/Centrex) - /Lpf Epith rare /Lpf Bacteria rare /Hpf Amorphous (Fma/CMC/Centrex) - /Lpf Crystals, Fluid (Fma/CMC/CTX) - Z#Comments - Laboratory test finding 06/14/2019 [facility] ([facility]ma) 1.7 Low 2.0- 3.0 (607)- - Laboratory test finding 06/04/2019 [facility] (Fma) 1.9 Low 2.0- 3.0 (607)- - Laboratory test finding 05/28/2019 [facility] (Fma) 1.7 Low 2.0- 3.0 (607)- - Laboratory test finding 05/21/2019 [facility] (Fma) 1.4 Low 2.0- 3.0 (607)- - Procedures Date Code Description Status 06/14/2019 77013 Finger Or Heel Stick Completed 06/10/2019 81924 Pulse Oximetry Completed 06/04/2019 59372 Finger Or Heel Stick Completed 05/28/2019 66526 Finger Or Heel Stick Completed 05/21/2019 55049 Pulse Oximetry Completed 05/21/2019 11027 Finger Or Heel Stick Completed Medical Devices Description No Information Available Encounters Type Date Location Provider Dx Diagnosis Office Visit 06/14/2019 Main Office Makayla Waller R31.9 Hematuria, 2:45p MAYELA Cloud unspecified J44.9 Chronic obstructive pulmonary disease, unspecified R06.2 Wheezing Z79.01 nursing home (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 I48.11 Longstanding persistent atrial fibrillation Office Visit 06/10/2019 Main Office Nic Huff44.1 Chronic 11:30a MD Mami obstructive pulmonary disease w (acute) exacerbation Office Visit 05/31/2019 [facility] Nic Lew J44.9 Chronic 4:30p Office MD Mami obstructive pulmonary disease, unspecified 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 I48.20 Chronic atrial fibrillation, unspecified I49.5 Sick sinus syndrome I27.20 Pulmonary hypertension, unspecified J96.11 Chronic respiratory failure with hypoxia Office Visit 05/21/2019 10:15a [facility] Office Milagro Gómez J16.8 Pneumonia due to MAYELA Mendoza other specified infectious organisms I48.20 Chronic atrial fibrillation, unspecified Z79.01 nursing home (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 J44.1 Chronic obstructive pulmonary disease w (acute) exacerbation Office Visit 05/13/2019 3:20p [facility] Office Fiona Rodríguez J16.8 Pneumonia due to Flori Villaseñor other specified infectious organisms J44.9 Chronic obstructive pulmonary disease, unspecified E03.9 Hypothyroidism, unspecified I48.20 Chronic atrial fibrillation, unspecified I49.5 Sick sinus syndrome E11.21 Type 2 diabetes mellitus with diabetic nephropathy I27.20 Pulmonary hypertension, unspecified E78.5 Hyperlipidemia, unspecified R60.0 Localized edema Assessments Date Code Description Provider 06/21/2019 M54.2 Cervicalgia Nic Bolaños MD 06/21/2019 M25.511 Pain in right shoulder Nic Bolaños MD 06/21/2019 J44.1 Chronic obstructive pulmonary disease Nic Bolaños MD with (acute) exacerbation 06/21/2019 Z79.01 nursing home (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 Nic Bolaños MD 06/21/2019 I48.20 Chronic atrial fibrillation, unspecified Nic Bolaños MD 06/14/2019 R31.9 Hematuria, unspecified Makayla Cloud NP 06/14/2019 J44.9 Chronic obstructive pulmonary disease, Makayla Cloud NP unspecified 06/14/2019 R06.2 Wheezing Makayla Cloud NP 06/14/2019 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 Makayla Cloud NP 06/14/2019 I48.11 Longstanding persistent atrial Makayla Cloud NP fibrillation 06/10/2019 J44.1 Chronic obstructive pulmonary disease Nic Bolaños MD with (acute) exacerbation 06/04/2019 Z79.01 nursing home (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 Nic Bolaños MD 06/04/2019 I48.11 Longstanding persistent atrial Nic Bolaños MD fibrillation 05/31/2019 J44.9 Chronic obstructive pulmonary disease, Nic Bolaños MD unspecified 05/31/2019 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 Nic Bolaños MD 05/31/2019 I48.20 Chronic atrial fibrillation, unspecified Nic Bolaños MD 05/31/2019 I49.5 Sick sinus syndrome Nic Bolaños MD 05/31/2019 I27.20 Pulmonary hypertension, unspecified Nic Bolaños MD 05/31/2019 J96.11 Chronic respiratory failure with hypoxia Nic Bolaños MD 05/28/2019 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 infectious organisms 05/13/2019 J44.9 Chronic obstructive pulmonary disease, Fiona Villaseñor M.D. unspecified 05/13/2019 E03.9 Hypothyroidism, unspecified Fiona Villaseñor M.D. 05/13/2019 I48.20 Chronic atrial fibrillation, unspecified Fiona Villaseñor M.D. 05/13/2019 I49.5 Sick sinus syndrome Fiona Villaseñor M.D. 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 05/13/2019 E78.5 Hyperlipidemia, unspecified Fiona Villaseñor M.D. 05/13/2019 R60.0 Localized edema Fiona Villaseñor M.D. Plan of Treatment Future Appointment(s):06/28/2019 8:40 am - Nic [facility]/28/2019 8:15 am - Nic Bolaños MD at [id number] - Nic Bolaños, MDM54.2 KyfxkprzdaqW21.511 Pain in right wkzuxnakB24.1 Chronic obstructive pulmonary disease with (acute) bvfhijymaghlO42.01 middle or intermediate school principal (current) use of zuokrumtasxvzjA71.20 Chronic atrial fibrillation, unspecifiedAllNew Medication:Medrol 4 mg - as directedTramadol HCL 50 mg - 1 by mouth every 6 hours as neededAzithromycin 250 mg - 2 tabs today, then 1 tab daily for next 4 daysComments:Medication Management Patient Understands medications he's taking? Yes No Are there Barriersto Adherence? Yes No Has the patient been asked about herbal supplements and therapies, and OTC meds? Yes No Functional Status Description No Information Available Mental Status Description No Information Available Referrals Refer to Reason for Referral Status Appt Date José Luis Vines MD a-fib jw Scheduled 06/11/2019 [address] [facility] [address] Floor [place], [place] [id number] [phone] [facility] overnight O2 test. Order faxed. LT Sent [address] [place], [place] [id number] [phone]
--- OUTSIDE RECORDS SUMMARY | 2019-06-27 13:50 | XMS REPORT | Continuity of Care Document ---
:1935 External Reference #:[id number] Author Name José Luis Vines M.D. (transmitted by agent of provider Mara Cline ) Address [address] [facility] [address] [place] [address] Care Team Providers Name Role Phone Nic Bolaños MD - Family Care Team Information Controller Instructor [phone] Medicine Problems Description No Information Available Social History Type Date Description Comments Sex Unknown ETOH Use Occasionally consumes beer 6 beers /month Tobacco Use Start: Unknown End: Patient is a former smoker Unknown Recreational Drug Use Denies Drug Use Smoking [...] Result H/L Range Note Laboratory test 06/07/2019 [facility] Troponin- 0.04 ng/mL Critical high <0.03 [address] I (TnI) [place] [address] [phone] 1 Result TnIDx:0.04 Called to [id number] at: 13:54:35 by:[id number] Read back by: [id number] Troponin-I testing on Plasma Separator Tubes (PST) has a known false positive rate of 0.20-0.40%. All positive troponins reflex immediately to secondary confirmatory testing. Using the [employer] DxI 800 Access Immunoassay systems, the 99th percentile upper reference limit was demonstrated to be < 0.03 ng/mL. Procedures Date Code Description Status 06/11/2019 30811 EKG Tracing & Interpretation Completed 05/25/2019 89036 ECHO Transthorasic Realtime 2D W Doppler & Color Flow Hosp Completed Medical Devices Description No Information Available Encounters Type Date Location Provider Dx Diagnosis Office Visit 05/25/2019 [facility] Angelic Kirti, J44.1 Chronic obstructive 10:36a Assoc,pc FOUNDATION STAGE TEACHER pulmonary disease w Hospitalists (acute) exacerbation R31.9 Hematuria, unspecified I48.91 Unspecified atrial fibrillation E78.5 Hyperlipidemia, unspecified E11.9 Type 2 diabetes mellitus without complications E03.9 Hypothyroidism, unspecified N40.0 Benign prostatic hyperplasia without lower urinry tract symp I73.9 Peripheral vascular disease, unspecified Office Visit 05/24/2019 10:36a [facility] Angelic Kirti, J44.1 Chronic Assoc,pc FOUNDATION STAGE TEACHER obstructive Hospitalists pulmonary disease w (acute) exacerbation [...] Luis Vines M.D. complications 06/11/2019 E03.9 Hypothyroidism, jasvirified José Luis Vines M.D. 06/11/2019 I35.0 Aortic valve stenosis José Luis Vines M.D. 06/11/2019 I10 Benign hypertension José Luis Vines M.D. 05/25/2019 R60.9 Edema, unspecified José Luis Vines M.D. 05/25/2019 J44.1 Chronic obstructive pulmonary disease with Angelic Kirti, FOUNDATION STAGE TEACHER (acute) exacerbation 05/25/2019 R31.9 Hematuria, unspecified Angelic Kirti, FOUNDATION STAGE TEACHER 05/25/2019 I48.91 Unspecified atrial fibrillation Angelic Kirti, FOUNDATION STAGE TEACHER 05/25/2019 E78.5 Hyperlipidemia, unspecified Angelic Kirti, FOUNDATION STAGE TEACHER 05/25/2019 E11.9 Type 2 diabetes mellitus without Angelic Kirti, FOUNDATION STAGE TEACHER complications 05/25/2019 E03.9 Hypothyroidism, unspecified Angelic Kirti, FOUNDATION STAGE TEACHER 05/25/2019 N40.0 Benign prostatic hyperplasia without lower Angelic Kirti, FOUNDATION STAGE TEACHER urinary tract symptoms 05/25/2019 I73.9 Peripheral vascular disease, unspecified Angelic Kirti, FOUNDATION STAGE TEACHER 05/24/2019 J44.1 Chronic obstructive pulmonary disease with Angelic Kirti, FOUNDATION STAGE TEACHER (acute) exacerbation 05/24/2019 R31.9 Hematuria, unspecified Angelic Kirti, FOUNDATION STAGE TEACHER 05/24/2019 R60.0 Localized edema Angelic Kirti, FOUNDATION STAGE TEACHER 05/24/2019 I48.91 Unspecified atrial fibrillation Angelic Kirti, FOUNDATION STAGE TEACHER 05/24/2019 E11.9 Type 2 diabetes mellitus without Angelic Kirti, FOUNDATION STAGE TEACHER complications 05/24/2019 E03.9 Hypothyroidism, unspecified Angelic Kirti, FOUNDATION STAGE TEACHER 05/24/2019 N40.0 Benign prostatic hyperplasia without lower Angelic Kirti, FOUNDATION STAGE TEACHER urinary tract symptoms Plan of Treatment Future Appointment(s):11/03/2019 11:00 am - José Luis Vines M.D. at [place] [facility]98/10/2020 10:30 am - Mile Dumont NGiaPGia at [place] Mwkwyvmzww47/27/ 2020 3:20 pm - Deandra Edwards DO at [facility] Internal Medicine - Suite 06/11/2019 - José Luis Vines M.D.J44.1 Chronic obstructive pulmonary disease with ( acute) tarskeegjgyxG51.9 Hematuria, unspecifiedRecommendations:suggest followup with PMD and puqpiwpqzC87.91 Unspecified atrial fibrillationFollow up:medtronic pacer check please obtain cardiology records from Dr. Cuauhtemoc Cordero , [place] ov [place] 1 m ov JFM 4 m check INR enroll in lwnhbzK66.5 Hyperlipidemia, fxpwgezygufG39.9 Type 2 diabetes mellitus without gnaoqfavrjkmzM05.9 Hypothyroidism, tudoyespvwsJ91.0 Aortic valve aenpjujtW18 Benign hypertensionNew Xrays:US Aorta Screening, Scheduled: 06/25/19 Functional Status Description No Information Available Mental Status Description No Information Available Referrals Description No Information Available
--- OUTSIDE RECORDS SUMMARY | 2019-06-27 13:50 | XMS REPORT | Continuity of Care Document ---
:1935 External Reference #:[id number] Author Name Gabriel Jaramillo Problems Description No Information Available Social History Type Date Description Comments Sex Unknown Allergies, Adverse Reactions, Alerts Description No Information Available Medications Description No Information Available Immunizations Description No Information Available Vital Signs Description No Information Available Results Test Acquired Date Facility Test Result H/L Range Note Laboratory test 06/07/2019 [facility] Troponin- 0.04 ng/mL Critical high <0.03 1 finding [address] [facility] (TnI) [place] [address] [phone] 1 Result TnIDx:0.04 Called to [id number] at: 13:54:35 by:[id number] Read back by: [id number] Troponin-I testing on Plasma Separator Tubes (PST) has a known false positive rate of 0.20-0.40%. All positive troponins reflex immediately to secondary confirmatory testing. Using the [employer]nis DxI 800 Access Immunoassay systems, the 99th percentile upper reference limit was demonstrated to be < 0.03 ng/mL. Procedures Date Code Description Status 05/25/2019 15240 ECHO Transthorasic Realtime 2D W Doppler & Color Flow Hosp Completed Medical Devices Description No Information Available Encounters Description No Information Available Assessments Description No Information Available Plan of Treatment Future Appointment(s):06/28/2019 3:20 pm - Deandra Edwards DO at [facility] Internal Medicine - [address] Functional Status Description No Information Available Mental Status Description No Information Available Referrals Description No Information Available
[2019-06-27] MEDS ORDERED: NS 0.9% 1000 ML** 1,000 ML IV ONE ×2 (13:53→16:25)
[2019-06-27] MEDS ORDERED: Albuterol/Ipratropium NEB.SOL* Albuterol 2.5 MG/Ipratropium 0.5 MG 3 ML INH ONE ×3 (13:53→16:26)
--- NOTE | 2019-06-27 13:56 | ED ---
Shortness of Breath - HPI Summary HPI Summary: Patient is an 84 y/o M presenting to the ED via EMS for a chief complaint of shortness of breath that began on 06/27/19. Previously, patient was seen at a clinic for shortness of breath and went home. While at home, his shortness of breath worsened so EMS was called. Patient continues to complain of shortness of breath, and notes left shoulder pain, left neck pain, and bilateral LE edema. PMHx is significant for atrial fibrillation, cardiac arrest, and COPD. PSHx is significant for cervical spine surgery. Patient uses oxygen at night. He is a former smoker. - History of Current Complaint Hx Obtained From: Patient Onset/Duration: Sudden Onset Dyspnea At: Rest Aggravating Factors: Nothing Alleviating Factors: Nothing Associated Signs & Symptoms: Edema - Bilateral LE - Allergy/Home Medications Allergies/Adverse Reactions: Allergies Allergy/AdvReac Type Severity Reaction Status Date / Time acetaminophen [From Percocet] Allergy Hives Verified 05/24/19 14:09 oxycodone [From Percocet] Allergy Hives Verified 05/24/19 14:09 PMH/Surg Hx/FS Hx/Imm Hx Previously Healthy: Yes Endocrine/Hematology History: Reports: Hx Anticoagulant Therapy - Patient takes Coumadin for atrial fibrillation., Hx Diabetes, Hx Thyroid Disease Cardiovascular History: Reports: Hx Angina, Hx Atrial Fibrillation, Hx Cardiac Arrest - X2 Respiratory History: Reports: Hx Asthma, Hx Chronic Obstructive Pulmonary Disease (COPD) Sensory History: Reports: Hx Contacts or Glasses, Hx Hearing Aid Denies: Hx Legally Blind, Hx Deafness Opthamlomology History: Reports: Hx Contacts or Glasses Denies: Hx Legally Blind EENT History: Denies: Hx Deafness - Surgical History Surgical History: Yes Surgery Procedure, Year, and Place: cervical spine with screws and plates; right shoulder x 3, left shoulder x 2; hip replacement; left arm plate; knee; ? gallbladder Infectious Disease History: No Infectious Disease History: Denies: Traveled Outside the [place] in Last 30 Days - Family History Known Family History: Negative: Seizure Disorder - Social History Occupation: Retired Lives: With Family Alcohol Use: Occasionally Hx Substance Use: No Substance Use Type: Reports: None Hx Tobacco Use: Yes Smoking Status (MU): Former Smoker Type: Cigarettes Review of Systems Positive: Shortness Of Breath Positive: Arthralgia - Left shoulder, Myalgia - Left neck, Edema - Bilateral LE All Other Systems Reviewed And Are Negative: Yes Physical Exam - Summary Physical Exam Summary: Constitutional: Well-developed, Well-nourished, Alert. (-) Distressed Skin: Warm, Dry HENT: Normocephalic; Atraumatic Eyes: Conjunctiva normal Neck: Musculoskeletal ROM normal neck. (-) JVD, (-) Stridor, (-) Tracheal deviation. Old posterior cervical surgical scar. Cardio: Rhythm regular, rate normal, Heart sounds normal; Intact distal pulses; The pedal pulses are 2+ and symmetric. Radial pulses are 2+ and symmetric. (-) Murmur Pulmonary/Chest wall: Effort normal. (-) Respiratory distress, (-) Rales. Faint bilateral expiratory wheezes. Abd: Soft, (-) tenderness, (-) Distension, (-) Guarding, (-) Rebound Musculoskeletal: Mild bilateral LE edema. Lymph: (-) Cervical adenopathy Neuro: Alert, Oriented x3 Psych: Mood and affect Normal Triage Information Reviewed: Yes Vital Signs Reviewed: Yes Procedures - Sedation Patient Received Moderate/Deep Sedation with Procedure: No Diagnostics - Laboratory Result Diagrams: 06/27/19 14:18 06/27/19 14:18 Lab Statement: Any lab studies that have been ordered have been reviewed, and results considered in the medical decision making process. - Radiology Chest X-ray Radiology Interpretation Completed By: Radiologist Summary of Radiographic Findings: Chest X-ray IMPRESSION: CARDIOMEGALY. NO ACTIVE CARDIOPULMONARY DISEASE. Reviewed by Dr. Olvera. - EKG 15:05 Cardiac Rate: Other Rate - 60 BPM EKG Rhythm: Sinus Rhythm ST Segment: Normal Ectopy: None Summary of EKG Findings: EKG at 15:05 shows ventricular-paced rhythm with 60 BPM , no STEMI. Dr. Olvera has reviewed and interpreted this EKG. Course/Dx - Course Course Of Treatment: Patient is an 84 y/o M presenting to the ED via EMS for a chief complaint of shortness of breath that began on 06/27/19. Previously, patient was seen at a clinic for shortness of breath and went home. While at home, his shortness of breath worsened so EMS was called. Patient continues to complain of shortness of breath, and notes left shoulder pain, left neck pain, and bilateral LE edema. PMHx is significant for atrial fibrillation, cardiac arrest, and COPD. PSHx is significant for cervical spine surgery. Patient uses oxygen at night. He is a former smoker. On exam, faint bilateral expiratory wheezes, old posterior cervical surgical scar, mild bilateral LE edema. In the ED course, patient was given Solu-Medrol 125 mg IV, albuterol 1 neb INH, and IV fluids. Chest X-ray IMPRESSION: CARDIOMEGALY. NO ACTIVE CARDIOPULMONARY DISEASE. EKG at 15:05 shows ventricular-paced rhythm with 60 BPM, no STEMI. Laboratory abnormal findings: RBC 3.67, Hgb 11.9, Hct 35, MCV 95, MCH 32, MPV 7 , absolute lymphs 0.9, INR 4.61,chloride 95, cabon dioxide 39, BUN/Creatinine ratio 22.1. Patient will be discharged with a diagnosis of COPD. Follow up with PCP in 1-3 days. - Diagnoses Provider Diagnoses: COPD (chronic obstructive pulmonary disease) Discharge ED - Sign-Out/Discharge Documenting (check all that apply): Patient Departure - Discharge - Discharge Plan Condition: Stable Disposition: HOME Prescriptions: predniSONE [Prednisone 20 MG TAB] 40 mg PO DAILY 4 Days #8 tablet Patient Education Materials: COPD (Chronic Obstructive Pulmonary Disease) (ED) Referrals: Nic Bolaños MD [Primary Care Provider] - Additional Instructions: RETURN TO THE EMERGENCY DEPARTMENT FOR CHANGING OR WORSENING SYMPTOMS. Follow up with your primary care physician in 1-3 days. - Billing Disposition and Condition Condition: STABLE Disposition: Home - Attestation Statements Document Initiated by Date: Yes Documenting Scribe: Fay Manuel Provider For Whom Alfredo is Documenting (Include Credential): Denzel Olvera DO Scribe Attestation: Fay Frias scribed for Denzel Olvera DO on 06/27/19 at 2037. Scribe Documentation Reviewed: Yes Provider Attestation: The documentation as recorded by the Fay cartwright accurately reflects the service I personally performed and the decisions made by , Denzel Olvera DO Status of Scribe Document: Viewed
[2019-06-27 14:37] LABS: ABS Eosinophils 0.5 10^3/ul (0-0.6); ABS Lymphocytes 0.9 10^3/ul (1.0-4.8); ABS Monocytes 0.5 10^3/ul (0-0.8); ABS Neutrophils 3.3 10^3/ul (1.5-7.7); Eosinophil % 9.4 %; Hematocrit 35 % (42-52); Hemoglobin 11.9 g/dL (14.0-18.0); Mean Corpuscular HGB Conc 34 g/dL (31-36); Mean Corpuscular Hemoglobin 32 pg (27-31); Mean Corpuscular Volume 95 fL (80-94); Platelet Count 163 10^3/uL (150-450); Red Blood Count 3.67 10^6 /uL (4.18-5.48); Red Cell Distribution Width 13 % (10-15); White Blood Count 5.3 10^3/uL (3.5-10.8)
[2019-06-27 14:48] LABS: Albumin 3.8 g/dL (3.2-5.2); Albumin/Globulin Ratio 1.4 (1-3); BUN/Creatinine Ratio 22.1 (8-20); Calcium 9.3 mg/dL (8.6-10.3); EGFR African American 116.2 (>60); Globulin 2.7 g/dL (2-4); Potassium 4.2 mmol/L (3.5-5.0); Total Bilirubin 0.4 mg/dL (0.2-1.0); Total Protein 6.5 g/dL (6.4-8.9)
[2019-06-27] MEDS ORDERED: methylPREDNISolone 125 MG* 2 ML VIAL IV ONE (14:58)
[2019-06-27 15:05] LABS: INR 4.61 (0.82-1.09)
[2019-06-27 15:17] LABS: Troponin I 0.02 ng/mL (<0.03)
[2019-06-27 17:54] VITALS: BP 122/61
== END 2019-06-27 18:28 | disposition home or self-care (01) ==
LOC: ED 13:44
DX: J44.9 Chronic obstructive pulmonary disease, unspecified (principal); I48.91 Unspecified atrial fibrillation; Z79.01 Long term (current) use of anticoagulants; Z86.74 Personal history of sudden cardiac arrest; Z87.891 Personal history of nicotine dependence; Z96.649 Presence of unspecified artificial hip joint; Z88.5 Allergy status to narcotic agent; Z88.8 Allergy status to other drugs, medicaments and biological substances
CPT/HCPCS: 36415; 71045; 80053; 83605; 83880; 84484; 85025; 85610; 93005; 96361; 96374; 99283; A9270-GY; J2930

== ENCOUNTER 2019-08-30 05:45 | Day surgery (SDC) | payer MEDICARE ==
--- NOTE | 2019-08-25 14:49 | HP ---
CC: Dr. Bolaños* DATE OF PLANNED ADMISSION AND SURGERY: 08/30/2019. HISTORY OF PRESENT ILLNESS: Mr. Marie is an 84-year-old white male who is admitted with recurrent episodes of gross hematuria, findings of bladder tumors , for cystoscopy and transurethral resection of bladder tumors. Mr. aMrie was referred to my office by Dr. Bolaños, his primary care physician, because of a two to three month history of recurrent episodes of gross painless hematuria. More recently, the episodes have been occurring almost daily with dark hematuria. There was no associated flank pain or renal symptoms and no voiding symptoms. He denies any symptoms of renal colic or urinary tract infections. The patient has nocturia about two to three times, day frequency about every two hours. He reports having adequate urinary stream and no feeling of incomplete bladder emptying. No history of renal calculi. At his initial visit to my office, the patient had a flexible cystoscopy. 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 There was also active bleeding noted in the bladder from those tumors. The patient is scheduled to have a CT urogram prior to this surgery. PAST MEDICAL HISTORY AND SYSTEM REVIEW: Summarize in the cardiology note of Ms. Dumont dated 07/26/2019. The patient gives a past history of smoking and has COPD with episodes of exacerbation. He was admitted to [facility] about three months ago because of exacerbated COPD and respiratory infection and was treated and responded well. His pulmonary symptoms have been stable and he has had no symptoms to suggest an active upper or lower respiratory infection. The patient also has a long history of atrial fibrillation and had a pacemaker inserted. He is constantly paced with on and off fibrillation, but has been asymptomatic. He had been maintained on anticoagulation with Warfarin. He, however, has not had any embolic phenomenon. He is diabetic. He has hypercholesterolemia, hypothyroidism, on treatment. PAST SURGICAL HISTORY: He had a fall in 2004 resulting in a cervical spine injury and required several surgeries for correction. He had a total left hip replacement and a right knee replacement in the past. He had right shoulder surgeries and bilateral inguinal hernia repair. MEDICATIONS: The patient is maintained on the following medications: 1. Simvastatin 10 mg daily. 2. Finasteride 5 mg daily. 3. Warfarin 7.5 mg as directed. The Warfarin was discontinued five days prior to this planned admission. 4. He is on Metformin 500 mg twice a day. 5. Gabapentin 600 mg at bedtime. 6. Furosemide 20 mg every other day. 7. Levothyroxine 137 mcg daily. 8. Montelukast 10 mg daily. 9. Eplerenone 25 mg daily. 10. Digoxin 0.5 mg daily. ALLERGIES: INTOLERANCE OR REACTION TO PERCOCET AND PREDNISONE. Again, he has a pacemaker in place. FAMILY HISTORY: Relevant for coronary artery disease. SOCIAL HISTORY: Smoking history: He was a heavy former smoker and stopped in the mid 1980s. He consumes a beer daily or every other day. He denies recreational drug use. He denies any mental health history. PHYSICAL EXAMINATION GENERAL: He is a pleasant white male who looks his age. VITAL SIGNS: Blood pressure 130/80, pulse 60 and regular. LUNGS: Clear. HEART: Regular, paced, no murmurs. ABDOMEN: Soft, no masses, no tenderness, no CVA tenderness. EXTERNAL GENITALIA: Normal. EXTREMITIES: Show no edema. RECTAL: Examination showed a moderately enlarged, but nonsuspicious prostate. IMPRESSION: 1. Recurrent episodes of gross painless hematuria secondary to two bladder tumors noted on office cystoscopy. 2. History of atrial fibrillation, status post pacemaker placement on anticoagulation with Warfarin and no history of embolic phenomenon. 3. Diabetes mellitus. 4. COPD. PLAN: I discussed the patient's condition with Ms. Dumont from the Cardiology office. She feels that he should tolerate the anesthesia safely and that it would be relatively safe to discontinue the Warfarin preoperatively. CT urogram done pre operatively showed normal kidneys, with no hydronephrosis, no renal masses, and no abnormal filling defects in the collecting systems or the ureters. No extension of the bladder lesions outside the bladder wall. One 1.5 cm external iliac lymph node. The plan is for cystoscopy and transurethral resection of bladder tumors. I discussed the plans in detail with the patient and his . Some of the potential complications including hematuria, infection were discussed. They both understand that the patient will likely need additional treatments depending on the pathology. All their questions were answered. [id number]/CPS #: [id number] MTDD
[~2019-08-30 05:45] MED LIST: Buffered Lidocaine 1% SYRIN* 1 ML/SYRINGE INTRADERM ONE
[2019-08-30] MEDS ORDERED: cefTRIAXone(*) 2 GM ADDV.VIAL IVPB ONE (05:54)
[2019-08-30] MEDS ORDERED: Lactated Ringers 1000 ML Bag* 1,000 ML IV SCH (06:00)
[2019-08-30 07:14] LABS: Activated Partial Thrombo Time 43.7 seconds (26.0-38.0); INR 1.23 (0.82-1.09)
[2019-08-30] MEDS ORDERED: Lidocaine 2% PF * 5 ML VIAL ONE (07:33)
[2019-08-30] MEDS ORDERED: Propofol* 10 MG/ML 20 ML BTL ONE (07:33)
[2019-08-30] MEDS ORDERED: fentaNYL* 50 MCG/ML 2 ML VIAL (100 MCG VIAL) ONE (07:34)
[2019-08-30] MEDS ORDERED: Midazolam* 1 MG/ML 2 ML VIAL (2 MG) ONE (07:34)
[2019-08-30] MEDS ORDERED: Succinylcholine* 20 MG/ML 10 ML VIAL ONE (07:34)
[2019-08-30] MEDS ORDERED: Dexamethasone IV* 4 MG/ML 1 ML (4 MG) ONE (08:24)
[2019-08-30] MEDS ORDERED: Ondansetron INJ* 2 MG/ML VIAL ONE (08:24)
[2019-08-30] MEDS ORDERED: Ketorolac INJ* 30 MG/ML 1 ML VIAL ONE (08:24)
[2019-08-30] MEDS ORDERED: Metoclopramide IV* 5 MG/ML 2 ML VIAL IV PRN (08:30)
[2019-08-30] MEDS ORDERED: Naloxone* 0.4 MG/ML 1 ML VIAL IV PRN (08:30)
[2019-08-30] MEDS ORDERED: Acetaminophen TAB* 325 MG PO PRN (08:30)
[2019-08-30] MEDS ORDERED: fentaNYL* 50 MCG/ML 2 ML VIAL (100 MCG VIAL) IV PRN (08:30)
[2019-08-30] MEDS ORDERED: Oxybutynin TAB* 5 MG PO PRN (09:33)
[2019-08-30] MEDS ORDERED: NS 0.9% KEEP VEIN OPEN IV SCH (09:45)
--- NOTE | 2019-08-30 09:52 | OP ---
CC: Dr. Bolaños * DATE OF OPERATION: 08/30/19 - [facility] DATE OF : 33 SURGEON: Dr. Mckeon. ANESTHESIOLOGIST: Dr. David. ANESTHESIA: General. PRE-OP DIAGNOSES: 1. Gross hematuria. 2. Bladder tumors. POST-OP DIAGNOSIS: Two bladder tumors, right posterior bladder wall, 2 to 3 cm each. OPERATIVE PROCEDURES: 1. Cystoscopy. 2. Transurethral resection of the bladder tumors (5 cm). INDICATIONS FOR PROCEDURE: Mr. Marie is an 84-year-old white male who gives past history of chronic heavy smoking, has been on anticoagulation for atrial fibrillation and who started having recurrent episodes of gross hematuria 2 [address] urogram showed normal upper tracts and filling defects inside the bladder. Cystoscopy showed gross hematuria and bladder tumors arising from the right posterior bladder wall. Because of the above history, the persistent gross hematuria, the patient is taken to the operating room on a semi-urgent basis for the above procedure. PATHOLOGY AT CYSTOSCOPY: The penile and bulbar urethrae looked normal. The prostatic urethra measured 3 cm in length and there was significant degree of obstruction by trilobar hyperplasia of the prostate. The prostatic urethra was vascular. There were prominent veins at the posterior bladder neck. Examination of the bladder showed multiple bladder clots. After evacuation of the clots, there were 2 tumors each measuring 2 to 3 cm in size. The tumors were similar in appearance. They were pedunculated and had the gross appearance of moderately differentiated transitional cell carcinoma. There was no gross evidence of invasion of the tumors inside the deeper bladder wall. Both tumors were located in the right posterior bladder wall and they did not involve the trigone or the ureteral orifices. Examination of the bladder wall showed diffuse trabeculations and cellules. There were no other suspicious bladder lesions seen. No areas to suggest carcinoma in situ. No calculi were noted. DESCRIPTION OF PROCEDURE: After successful general anesthesia, the patient was placed in the lithotomy position and was prepped and draped for a cystoscopy. Cystoscopy was performed. The findings in the bladder were noted. The presence of the clots made it difficult for good visualization. The resectoscope was then introduced inside the bladder. The bladder was irrigated and all the clots were evacuated. The pathology was then clearly seen. The above-described tumors were resected and sent for pathology. During the resections, patient had an obturator reflex, but no bladder perforation resulted. There was no gross residual tumors, the resection was then stopped, and the bases of the tumors was fulgurated extensively with the coagulation current achieving very good hemostasis. At the completion of the procedure, there were no residual tumors noted. There was very good hemostasis. The ureteral orifices looked intact. There were no deep cuts or perforations of the bladder wall. The resectoscope was then removed and a size 20-Italian Badillo catheter was passed inside the bladder and the balloon inflated with 10 cc of water. The irrigation yielded clear returns. The patient tolerated the procedure well and left the operating room in good condition. The blood loss was estimated at about 50 cc. The specimen was bladder tumors. PLAN: The plan is to give the patient one dose of intravesical mitomycin-C in the recovery room. [id number]/CPS #: [id number] MTDD
[2019-08-30] MEDS ORDERED: mitoMYcin PREMIX* 40 MG KIT* 40 MG/40 ML SYRINGE IRRIGATION ONE (10:00)
[2019-08-30 11:10] VITALS: BP 147/78
== END 2019-08-30 11:10 | disposition home or self-care (01) ==
LOC: OR 05:45
PROVIDERS: ATTEND Urology
DX: C67.4 Malignant neoplasm of posterior wall of bladder (principal); R31.0 Gross hematuria; Z87.891 Personal history of nicotine dependence; J44.9 Chronic obstructive pulmonary disease, unspecified; I48.91 Unspecified atrial fibrillation; Z95.0 Presence of cardiac pacemaker; Z79.01 Long term (current) use of anticoagulants; E11.9 Type 2 diabetes mellitus without complications; Z79.84 Long term (current) use of oral hypoglycemic drugs; E78.00 Pure hypercholesterolemia, unspecified; E03.9 Hypothyroidism, unspecified
CPT/HCPCS: 36415; 85610; 85730; 88305; J0330; J0696; J1100; J1885; J2250; J2405; J2704; J3010

== ENCOUNTER 2019-09-04 21:19 | Inpatient (IN) | payer MEDICARE ==
--- OUTSIDE RECORDS SUMMARY | 2019-09-04 21:41 | XMS REPORT | Continuity of Care Document ---
:1935 External Reference #:[id number] Author Name Nic Bolaños MD Address [address] [place] [address] Care Team Providers Name Role Phone Nic Bolaños MD - Family Care Team Information [facility] [employer] [facility] [employer] - Oxygen Equipment & Supplies Care Team Information [employer] Problems Active Problems Provider Date Type 2 [...] Use Start: Unknown Nonsmoker Smoking Status Reviewed: 07/12/19 Nonsmoker Allergies, Adverse Reactions, Alerts Active Allergies Reaction Severity Comments Date Percocet blood in urine 05/13/2019 Prednisone Hematuria Severe 05/31/2019 Medications Active Medications SIG Qnty Indications Ordering Date Provider Doxycycline Hyclate 1 by mouth twice 14caps J44.1 Nic Lew 07/15/2019 a day MD Mami 100mg Capsules Advair Diskus inhale 1 puff by 60units J44.1 Makayla Waller 07/12/2019 mouth two times Cloud, EN[employer]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 125mcg Tablets day MD Mami Levothyroxine Sodium 1 by mouth every 90tabs Nic TGia day MD Mami 88mcg Tablets Primidone 2 po at hs Unknown 50mg Tablets Gabapentin 1 by mouth once Unknown 300mg in the morning Capsules and 1 tab at night Metformin HCL 1 by mouth twice Unknown 500mg daily Tablets Finasteride 1 by mouth every 90tabs Nic T. 5mg Tablets day MD Mami Eplerenone 1 by mouth every 45tabs . 25mg Tablets other day MD Mami Warfarin Sodium 1 by mouth every 90Tablet Z79.01 . 5mg day or as MD Mami Tablets directed by provider I48.20 Furosemide 20mg 1 by mouth every day Unknown Tablets History Medications Medrol as directed 1un J44.1 Nic TGia 06/28/2019 - 4mg TBPShmuel Bolaños MD 07/12/2019 Medrol as directed un TGia 06/21/2019 - 4mg TBPK MD Mami 07/12/2019 Tramadol HCL 1 by mouth every 28tabs Nic Louann 06/21/2019 - 50mg 6 hours as MD Mami 07/12/2019 Tablets needed Azithromycin 2 tabs today, 6tabs Nic TGia 06/21/2019 - 250mg then 1 tab daily MD Mami 07/08/2019 Tablets for next 4 days Medrol as directed 1unprincess Lew 06/10/2019 - 4mg TBPK MD Mami 06/10/2019 Prednisone take 5 by mouth 30tabs J44.1 Milagro Mendoza, 05/21/2019 - 10mg daily for 2 [employer]EV[employer] 05/31/2019 Tablets days, then 4 for 2 days, then 3 for 2 days, then 2 for 2 days, then 1 daily until gone Immunizations Description No Information Available Vital Signs Date Vital Result Comment 07/22/2019 2:34pm BP Systolic 128 mmHg BP Diastolic 70 mmHg Heart Rate 78 /min Body Temperature 97.7 F Respiratory Rate 16 /min O2 % BldC Oximetry 94 % Height 72 inches 6'0" Weight 173.00 lb BMI (Body Mass Index) 23.5 kg/m2 07/15/2019 11:42am BP Systolic 118 mmHg BP Diastolic 52 mmHg Heart Rate 76 /min Body Temperature 97.7 F Respiratory Rate 18 /min O2 % BldC Oximetry 90 % Height 72 inches 6'0" Weight 173.00 lb BMI (Body Mass Index) 23.5 kg/m2 Results Test Acquired Date Facility Test Result H/L Range Note Laboratory test 07/05/2019 [facility] Inr (Fma) 2.3 2-3 finding (607)- - Laboratory test 06/28/2019 [facility](a) PSA 0.6 ng/mL 0.0-4.0 finding Ua - Micro (Fma) 06/28/2019 [facility] medicine Appearance cloudy (607)- - Color brown Glucose, Urine (Fma/CMC/CTX) 1000 mg/dL High known diabetic Bilirubin neg Ketones neg SP Grav 1.020 Blood large PH 5.5 Protein ssa 1+ Urobil 0.2 Nitrite neg Leukocytes (Fma/CMC/Centrex) neg Hyaline - /Lpf Granular - /Lpf WBC (Fma,Centrex) 3-5 RBC >100 Mucus (Fma/CBC/Centrex) - /Lpf Epith - /Lpf Bacteria trace /Hpf Amorphous (Fma/CMC/Centrex) - /Lpf Crystals, Fluid (Fma/CMC/CTX) - Z#Comments - Laboratory test 06/28/2019 [facility] Inr (Fma) 3.6 High 2.0-3.0 finding (607)- - Urine Culture And 06/28/2019 [facility] Urine Culture SEE RESULT 1 Sensitivities BELOW Laboratory test 06/27/2019 [facility] B-Type 95 pg/mL <=100 finding Natriuretic Peptide BNP Inr/Protime 06/27/2019 [facility] Inr 4.61 High 0.82-1.09 2 Laboratory test 06/27/2019 [facility] Troponin-I 0.02 ng/mL <0.03 3 finding (TnI) Comp Metabolic 06/27/2019 [facility] Sodium 138 mmol/L Normal 135-145 Panel Potassium 4.2 mmol/L Normal 3.5-5.0 Chloride 95 mmol/L Low 101-111 Co2 Carbon Dioxide 39 mmol/L High 22-32 Anion Gap 4 mmol/L Normal 2-11 Glucose 76 mg/dL Normal 70-100 Blood Urea Nitrogen 17 mg/dL Normal 6-24 Creatinine 0.77 mg/dL Normal 0.67-1.17 BUN/Creatinine Ratio 22.1 High 8-20 Calcium 9.3 mg/dL Normal 8.6-10.3 Total Protein 6.5 g/dL Normal 6.4-8.9 Albumin 3.8 g/dL Normal 3.2-5.2 Globulin 2.7 g/dL Normal 2-4 Albumin/Globulin Ratio 1.4 Normal 1-3 Total Bilirubin 0.40 mg/dL Normal 0.2-1.0 Alkaline Phosphatase 72 U/L Normal 34-104 Alt 23 U/L Normal 7-52 Ast 23 U/L Normal 13-39 Egfr Non- 96.0 >60 Egfr 116.2 >60 4 Laboratory test 06/27/2019 [facility] Lactic Acid 1.5 mmol/L Normal 0.5-2.0 5 finding CBC Auto Diff 06/27/2019 [facility] White Blood Count 5.3 10^3/uL Normal 3.5- 10.8 Red Blood Count 3.67 10^6/uL Low 4.18-5.48 Hemoglobin 11.9 g/dL Low 14.0-18.0 Hematocrit 35 % Low 42-52 Mean Corpuscular Volume 95 fL High 80-94 Mean Corpuscular Hemoglobin 32 pg High 27-31 Mean Corpuscular HGB Conc 34 g/dL Normal 31-36 Red Cell Distribution Width 13 % Normal 10-15 Platelet Count 163 10^3/uL Normal 150-450 Mean Platelet Volume 7.0 fL Low 7.4-10.4 Abs Neutrophils 3.3 10^3/uL Normal 1.5-7.7 Abs Lymphocytes 0.9 10^3/uL Low 1.0-4.8 Abs Monocytes 0.5 10^3/uL Normal 0-0.8 Abs Eosinophils 0.5 10^3/uL Normal 0-0.6 Abs Basophils 0.0 10^3/uL Normal 0-0.2 Abs Nucleated RBC 0.0 10^3/uL Granulocyte % 62.8 % Lymphocyte % 18.0 % Monocyte % 9.6 % Eosinophil % 9.4 % Basophil % 0.2 % Nucleated Red Blood Cells % 0.0 Laboratory test 06/27/2019 [facility] Point of Care 94 mg/dL Normal 70-100 6 finding Glucose Laboratory test 06/27/2019 [facility] Troponin-I (TnI) 0.01 ng/mL <0.03 7 finding Laboratory test 06/21/2019 [facility] Inr (Fma) 1.6 Low 2.0-3.0 finding (607)- - Ua - Micro (a) 06/14/2019 [facility] Appearance cloudy (607)- - [...] - Z#Comments - Laboratory test finding 06/14/2019 [facility] Inr (Fma) 1.7 Low 2.0- 3.0 (607)- - Laboratory test finding 06/04/2019 [facility] Inr (Fma) 1.9 Low 2.0- 3.0 (607)- - Laboratory test finding 05/28/2019 [facility] Inr (Fma) 1.7 Low 2.0- 3.0 (607)- - Laboratory test finding 05/21/2019 [facility] Inr (Fma) 1.4 Low 2.0- 3.0 (607)- - 1 SEE RESULT BELOW Name: LESLIE HOOD : [address]: Nic Bolaños MD Acct: [id number] Unit: [id number] AGE: 84 Location: [facility] Re06/28/19 SEX: M Status: REG REF SPEC: [id number] IVAN: 06/28/19-[address]: Nic Bolaños MD REQ: [id number] RECD: 06/28/19 STATUS: COMP _ SOURCE: URINE SPDESC: ORDERED: Urine Culture COMMENTS: 1 lyn [id number] Urine Source: Random Procedure Result Reported Site Urine Culture Final 06/29/19- 1512 ML No Growth (<1,000 CFU/mL) * ML - Main Lab . END OF REPORT DEPARTMENT OF PATHOLOGY, [address] [place] [address] Babak Del Castillo M.D. Director [facility] # [id number] 2 Standard intensity warfarin therapeutic range: 2.0-3.0 High intensity warfarin therapeutic range: 2.5-3.5 3 Troponin-I testing on Plasma Separator Tubes (PST) has a known false positive rate of 0.20-0.40%. All positive troponins reflex immediately to secondary confirmatory testing. Using the [employer] DxI 800 Access Immunoassay systems, the 99th percentile upper reference limit was demonstrated to be < 0.03 ng/mL. 4 Because ethnic data is not always readily available, this report includes an eGFR for both -Americans and non- Americans. The National Kidney Disease Education Program (NKDEP) does not endorse the use of the MDRD equation for patients that are not between the ages of 18 and 70, are , have extremes of body size, muscle mass, or nutritional status, or are non- or non-. According to the National Kidney Foundation, irrespective of diagnosis, the stage of the disease is based on the level of kidney function: Stage Description GFR(mL/min/1.73 m(2)) 1 Kidney damage with normal or decreased GFR 90 2 Kidney damage with mild decrease in GFR 60-89 3 Moderate decrease in GFR 30-59 4 Severe decrease in GFR 15-29 5 Kidney failure <15 (or dialysis) 5 [facility] Severe Sepsis and Septic Shock Management Bundle Measure requires all lactic acids initially measuring >2.0 mmol/L be repeated. 6 Monorail Hooker: [id number] 7 Troponin-I testing on Plasma Separator Tubes (PST) has a known false positive rate of 0.20-0.40%. All positive troponins reflex immediately to secondary confirmatory testing. Using the [employer] DxI [employer] Access Immunoassay systems, the 99th percentile upper reference limit was demonstrated to be < 0.03 ng/mL. Procedures Date Code Description Status 07/15/2019 58513 Pulse Oximetry Completed 07/12/2019 92088 Pulse Oximetry Completed 07/08/2019 65331 Inject/Drain Joint/Bursa Major Completed 07/05/2019 93089 Finger Or Heel Stick Completed 06/28/2019 97068 Pulse Oximetry Completed 06/21/2019 46716 Pulse Oximetry Completed 06/21/2019 22492 Finger Or Heel Stick Completed 06/14/2019 30088 Finger Or Heel Stick Completed 06/10/2019 71828 Pulse Oximetry Completed 06/04/2019 19096 Finger Or Heel Stick Completed 05/28/2019 26860 Finger Or Heel Stick Completed 05/21/2019 69977 Pulse Oximetry Completed 05/21/2019 91817 Finger Or Heel Stick Completed Medical Devices Description No Information Available Encounters Type Date Location Provider Dx Diagnosis Office Visit 07/22/2019 Main Office Nic Huff44.1 Chronic obstructive 2:40p MD Mami pulmonary disease w (acute) exacerbation Office Visit 07/15/2019 Main Office Nic Lew J44.1 Chronic obstructive 11:40a MD Mami pulmonary disease w (acute) exacerbation Office Visit 07/12/2019 Main Office Makayla Waller J44.1 Chronic obstructive 11:00a MAYELA Cloud pulmonary disease w (acute) exacerbation J06.9 Acute upper respiratory infection, unspecified Office Visit 07/08/2019 11:30a Main Office Nic Lew M75.01 Adhesive MD Mami capsulitis of right shoulder 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 J44.1 Chronic obstructive pulmonary disease w (acute) exacerbation Office Visit 06/28/2019 [facility] Nic Terrell.1 Chronic 8:40a Office MD Mami obstructive pulmonary disease w (acute) exacerbation R31.9 Hematuria, unspecified K62.5 Hemorrhage of anus and rectum K64.9 Unspecified hemorrhoids Office Visit 06/21/2019 1:00p [facility] Nic Lew M54.2 Cervicalgia MD Mami M25.511 Pain in right shoulder J44.1 Chronic obstructive pulmonary disease w (acute) exacerbation Z79.01 long-term (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 I48.20 Chronic atrial fibrillation, unspecified Office Visit 06/14/2019 2:45p Main Office Makayla Waller R31.9 Hematuria, MAYELA Cloud unspecified J44.9 Chronic obstructive pulmonary disease, unspecified R06.2 Wheezing Z79.01 director long term care (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 I48.11 Longstanding persistent atrial fibrillation Office Visit 06/10/2019 Main Office Nic Huff44.1 Chronic 11:30a MD Mami obstructive pulmonary disease w (acute) exacerbation Office Visit 05/31/2019 [facility] Nic Terrell.9 Chronic 4:30p Office MD Mami obstructive pulmonary disease, unspecified Z79.01 long-term (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 I48.20 Chronic atrial fibrillation, unspecified I49.5 Sick sinus syndrome I27.20 Pulmonary hypertension, unspecified J96.11 Chronic respiratory failure with hypoxia Office Visit 05/21/2019 10:15a [facility] Office Milagro Gómez J16.8 Pneumonia due to MAYELA Mendoza other specified infectious organisms I48.20 Chronic atrial fibrillation, unspecified Z79.01 director long term care (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 J44.1 Chronic obstructive pulmonary disease w (acute) exacerbation Office Visit 05/13/2019 3:20p [facility] Office Fiona Rodríguez J16.8 Pneumonia due to Flori Villaseñor other specified infectious organisms J44.9 Chronic obstructive pulmonary disease, unspecified E03.9 Hypothyroidism, unspecified I48.20 Chronic atrial fibrillation, unspecified I49.5 Sick sinus syndrome E11.21 Type 2 diabetes mellitus with diabetic nephropathy I27.20 Pulmonary hypertension, unspecified E78.5 Hyperlipidemia, unspecified R60.0 Localized edema Assessments Date Code Description Provider 07/22/2019 J44.1 Chronic obstructive pulmonary disease Nic Bolaños MD with (acute) exacerbation 07/15/2019 J44.1 Chronic obstructive pulmonary disease Nic Bolaños MD with (acute) exacerbation 07/12/2019 J44.1 Chronic obstructive pulmonary disease Makayla Cloud NP with (acute) exacerbation 07/12/2019 J06.9 Acute upper respiratory infection, Makayla Cloud NP unspecified 07/08/2019 M75.01 Adhesive capsulitis of right shoulder Nic Bolaños MD 07/08/2019 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 Nic Bolaños MD 07/08/2019 J44.1 Chronic obstructive pulmonary disease Nic Bolaños MD with (acute) exacerbation 07/05/2019 Z79.01 long-term (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 Nic Bolaños MD 07/05/2019 I48.11 Longstanding persistent atrial Nic Bolaños MD fibrillation 06/28/2019 J44.1 Chronic obstructive pulmonary disease Nic Bolaños MD with (acute) exacerbation 06/28/2019 R31.9 Hematuria, unspecified Nic Bolaños MD 06/28/2019 R31.9 Hematuria, unspecified Nic Bolaños MD 06/28/2019 K62.5 Hemorrhage of anus and rectum Nic Bolaños MD 06/28/2019 K64.9 Unspecified hemorrhoids Nic Bolaños MD 06/28/2019 Z79.01 long-term (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 Nic Bolaños MD 06/28/2019 I48.11 Longstanding persistent atrial Nic Bolaños MD fibrillation 06/21/2019 M54.2 Cervicalgia Nic Bolaños MD 06/21/2019 M25.511 Pain in right shoulder Nic Bolaños MD 06/21/2019 J44.1 Chronic obstructive pulmonary disease Nic Bolaños MD with (acute) exacerbation 06/21/2019 Z79.01 long-term (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 Nic Bolaños MD 06/21/2019 I48.20 Chronic atrial fibrillation, unspecified Nic Bolaños MD 06/14/2019 R31.9 Hematuria, unspecified Makayla Cloud, MAYELA 06/14/2019 J44.9 Chronic obstructive pulmonary disease, Makayla Cloud NP unspecified 06/14/2019 R06.2 Wheezing Makayla Cloud NP 06/14/2019 Z79.01 long-term (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 Makayla Cloud NP 06/14/2019 I48.11 Longstanding persistent atrial Makayla Cloud, [employer] PROGRAMMER fibrillation 06/10/2019 J44.1 Chronic obstructive pulmonary disease Nic Bolaños MD with (acute) exacerbation 06/04/2019 Z79.01 long-term (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 Nic Bolaños MD 06/04/2019 I48.11 Longstanding persistent atrial Nic Bolaños MD fibrillation 05/31/2019 J44.9 Chronic obstructive pulmonary disease, Nic Bolaños MD unspecified 05/31/2019 Z79.01 long-term (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 Nic Bolaños MD 05/31/2019 I48.20 Chronic atrial fibrillation, unspecified Nic Bolaños MD 05/31/2019 I49.5 Sick sinus syndrome Nic Bolaños MD 05/31/2019 I27.20 Pulmonary hypertension, unspecified Nic Bolaños MD 05/31/2019 J96.11 Chronic respiratory failure with hypoxia Nic Bolaños MD 05/28/2019 Z79.01 director long term care (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 Nic Bolaños MD 05/28/2019 I48.20 Chronic atrial fibrillation, unspecified Nic Bolaños MD 05/21/2019 J16.8 Pneumonia due to other specified Milagro Mendoza NP infectious organisms 05/21/2019 I48.20 Chronic atrial fibrillation, unspecified Milagro Mendoza NP 05/21/2019 Z79.01 director long term care (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 Milagro Mendoza NP [...] Fiona Villaseñor M.D. Plan of Treatment Future Appointment(s):11/23/2019 2:40 pm - Nic Vela M.D. at [facility]07/26/2019 10:15 am - Nic Bolaños MD at [facility] Nxzoaw2609/2019 9:20 am - Nic Bolaños MD at [facility] Nhihrm5007/22/2019 - Nic Bolaños MDJ44.1 Chronic obstructive pulmonary disease with (acute ) exacerbationAllComments:Medication Management Patient Understands medications he's taking? Yes No Are there Barriersto Adherence? Yes No Has the patient been asked about herbal supplements and therapies, and OTC meds? Yes No Functional Status Description No Information Available Mental Status Description No Information Available Referrals Refer to Reason for Referral Status Appt Date Felipe, Derrick Hematuria jw Scheduled 08/23/[address] [place] [address] [place] [address] [phone] [facility] Physical Evaluate and treat frozen Created Therapy shoulder(s). LT [address] [facility] [address] [place] [address] [phone] Dee,Gris COPD jw Sent [address] [facility] [address] [phone] José Luis Vines MD a-fib jw Scheduled 06/11/2019 [address] [facility] [address] [place] [address] [phone] [facility] overnight O2 test. Order faxed. LT Sent [address] [place] [address] [phone]
--- OUTSIDE RECORDS SUMMARY | 2019-09-04 21:41 | XMS REPORT | Continuity of Care Document ---
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[employer] - Oxygen Equipment & Supplies Care Team Information Smoking Pipe Repairer [phone] Problems Active Problems Provider Date Type 2 [...] Makayla Waller 07/12/2019 mouth two times Cloud, REHABILITATION TEAM LEAD 100-50mcg/Dose daily rinse mouth Aerosol after use Multivitamin Adult use 1 by mouth 30tabs Makayla Ann 07/12/2019 q.d MAYELA Cloud Tablets Ipratropium Use 1 Inhalation 270units Nic TGia 05/31/2019 [place]/Albuterol Via Nebulizer MD Mami Sulfate Every 4 Hours as Needed 0.5-2.5(3)mg/3ML Solution Oxygen 2 liters nasal Z79.01 Fiona McgrathGia 05/13/2019 cannula at night Flori Villaseñor Simvastatin 1 by mouth every Unknown 10mg day Tablets Montelukast Sodium 1 by mouth every Unknown 10mg day Tablets Digoxin 1 by mouth every 90tabs Nic T. 125mcg Tablets day MD Maim Levothyroxine Sodium 1 by mouth every 90tabs [...] Mendoza, 05/21/2019 - 10mg daily for 2 REHABILITATION TEAM LEAD 05/31/2019 Tablets days, then 4 for 2 days, then 3 for 2 days, then 2 for 2 days, then 1 daily until gone Immunizations Description No Information Available Vital Signs Date Vital Result Comment 07/15/2019 11:42am BP Systolic 118 mmHg BP Diastolic 52 mmHg Heart Rate 76 /min Body Temperature 97.7 F Respiratory Rate 18 /min O2 % BldC Oximetry 90 % Height 72 inches 6'0" Weight 173.00 lb BMI (Body Mass Index) 23.5 kg/m2 07/12/2019 11:10am BP Systolic 122 mmHg BP Diastolic 62 mmHg Heart Rate 76 /min Body Temperature 98.4 F Respiratory Rate 18 /min O2 % BldC Oximetry 91 % Height 72 inches 6'0" Weight 171.00 lb BMI (Body Mass Index) 23.2 kg/m2 Results Test Acquired Date Facility Test Result H/L Range Note Laboratory test 07/05/2019 [facility] Inr (Fma) 2.3 2-3 finding (607)- - Laboratory test 06/28/2019 [facility](a) PSA 0.6 ng/mL 0.0-4.0 finding Ua - Micro (Fma) 06/28/2019 [facility] medicine Appearance cloudy (607)- - Color [...] (Fma/CMC/CTX) - Z#Comments - Laboratory test 06/28/2019 [facility] Inr (Fma) 3.6 High 2.0-3.0 finding (607)- - Urine Culture And 06/28/2019 [facility] Urine Culture SEE RESULT 1 Sensitivities BELOW Laboratory test 06/27/2019 [facility] B-Type 95 pg/mL <=100 finding Natriuretic Peptide BNP Inr/Protime 06/27/2019 [facility] Inr 4.61 High 0.82-1.09 2 Laboratory test 06/27/2019 [facility] Troponin-I 0.02 ng/mL <0.03 3 finding (TnI) Comp Metabolic 06/27/2019 [facility] Sodium 138 mmol/L Normal 135-145 Panel Potassium [...] Egfr 116.2 >60 4 Laboratory test 06/27/2019 [facility] Lactic Acid 1.5 mmol/L Normal 0.5-2.0 5 finding CBC Auto Diff 06/27/2019 [facility] White Blood Count 5.3 10^3/uL Normal 3.5- [...] Blood Cells % 0.0 Laboratory test 06/27/2019 [facility] Point of Care 94 mg/dL Normal 70-100 6 finding Glucose Laboratory test 06/27/2019 [facility] Troponin-I (TnI) 0.01 ng/mL <0.03 7 finding Laboratory test 06/21/2019 [facility] Inr (Fma) 1.6 Low 2.0-3.0 finding (607)- [...] - Z#Comments - Laboratory test finding 06/14/2019 [facility] Inr (Fma) 1.7 Low 2.0- 3.0 (607)- - Laboratory test finding 06/04/2019 [facility] Inr (Fma) 1.9 Low 2.0- 3.0 (607)- - Laboratory test finding 05/28/2019 [facility] Inr (Fma) 1.7 Low 2.0- 3.0 (607)- - Laboratory test finding 05/21/2019 [facility] Inr (Fma) 1.4 Low 2.0- 3.0 (607)- - 1 SEE RESULT BELOW Name: LESLIE HOOD : [address]: Nic Bolaños MD Acct: [id number] Unit: [id number] AGE: 84 Location: [facility] Re06/28/19 SEX: M Status: REG REF SPEC: [id number] IVAN: 06/28/19-[address]: Nic Bolaños MD REQ: [id number] RECD: 06/28/19 STATUS: COMP _ SOURCE: URINE SPDESC: ORDERED: Urine Culture COMMENTS: 1 lyn [id number] Urine Source: Random Procedure Result Reported Site Urine Culture Final 06/29/19- 1512 ML No Growth (<1,000 CFU/mL) * ML - Main Lab . END OF REPORT DEPARTMENT OF PATHOLOGY, [address] [place] [address] Babak Del Castillo M.D. Director [facility] # [id number] 2 Standard intensity warfarin therapeutic range: 2.0-3.0 High intensity warfarin therapeutic range: 2.5-3.5 3 Troponin-I testing on Plasma Separator Tubes (PST) has a known false positive rate of 0.20-0.40%. All positive troponins reflex immediately to secondary confirmatory testing. Using the [facility] 800 Access Immunoassay systems, the 99th [...] 5 Kidney failure <15 (or dialysis) 5 [facility] Severe Sepsis and Septic Shock Management Bundle Measure requires all lactic acids initially measuring >2.0 mmol/L be repeated. 6 Media Specialist: [id number] 7 Troponin-I testing on Plasma Separator Tubes (PST) has a known false positive rate of 0.20-0.40%. All positive troponins reflex immediately to secondary confirmatory testing. Using the [facility] Tigerstripe Access Immunoassay systems, the 99th percentile upper reference limit was demonstrated to be < 0.03 ng/mL. Procedures Date Code Description Status 07/12/2019 23049 Pulse Oximetry Completed 07/08/2019 80629 Inject/Drain Joint/Bursa Major Completed 07/05/2019 94954 Finger Or Heel Stick Completed 06/28/2019 08995 Pulse Oximetry Completed 06/21/2019 20042 Pulse Oximetry Completed 06/21/2019 40019 Finger Or Heel Stick Completed 06/14/2019 34346 Finger Or Heel Stick Completed 06/10/2019 00214 Pulse Oximetry Completed 06/04/2019 99060 Finger Or Heel Stick Completed 05/28/2019 33200 Finger Or Heel Stick Completed 05/21/2019 18130 Pulse Oximetry Completed 05/21/2019 47358 Finger Or Heel Stick Completed Medical Devices Description No Information Available Encounters Type Date Location Provider Dx Diagnosis Office Visit 07/12/2019 Main Office Makayla Waller J44.1 Chronic obstructive 11:00a MAYELA Cloud pulmonary disease w (acute) exacerbation J06.9 Acute upper respiratory infection, unspecified Office Visit 06/28/2019 [facility] Nic Huff44.1 Chronic 8:40a Office MD Mami obstructive pulmonary disease w (acute) exacerbation R31.9 Hematuria, unspecified K62.5 Hemorrhage of anus and rectum K64.9 Unspecified hemorrhoids Office Visit 06/21/2019 1:00p [facility] Office Nic Lew M54.2 Cervicalgia MD Mami M25.511 Pain in right shoulder J44.1 Chronic obstructive pulmonary disease w (acute) exacerbation 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 I48.20 Chronic atrial fibrillation, unspecified Office Visit 06/14/2019 2:45p Main Office Makayla Waller R31.9 Hematuria, Pedro Luis, MAYELA unspecified J44.9 Chronic obstructive pulmonary disease, unspecified R06.2 Wheezing 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 I48.11 Longstanding persistent atrial fibrillation Office Visit 06/10/2019 Main Office Nic Huff44.1 Chronic 11:30a MD Mami obstructive pulmonary disease w (acute) exacerbation Office Visit 05/31/2019 [facility] Nic Lew J44.9 Chronic 4:30p Office MD Mami obstructive pulmonary disease, unspecified Z79.01 USP (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 I48.20 Chronic atrial fibrillation, unspecified I49.5 Sick sinus syndrome I27.20 Pulmonary hypertension, unspecified J96.11 Chronic respiratory failure with hypoxia Office Visit 05/21/2019 10:15a [facility] Office Milagro Gómez J16.8 Pneumonia due to MAYELA Mendoza other specified infectious organisms I48.20 Chronic atrial fibrillation, unspecified 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 J44.1 Chronic obstructive pulmonary disease w (acute) exacerbation Office Visit 05/13/2019 3:20p [facility] Office Fiona Huff16.8 Pneumonia due to Flori Villaseñor other specified infectious organisms J44.9 Chronic obstructive pulmonary disease, unspecified E03.9 Hypothyroidism, unspecified I48.20 Chronic atrial fibrillation, unspecified I49.5 Sick sinus syndrome E11.21 Type 2 diabetes mellitus with diabetic nephropathy I27.20 Pulmonary hypertension, unspecified E78.5 Hyperlipidemia, unspecified R60.0 Localized edema Assessments Date Code Description Provider 07/15/2019 J44.1 Chronic obstructive pulmonary disease Nic [...] Bolaños MD with (acute) exacerbation 07/05/2019 Z79.01 USP (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 Nic Bolaños MD 07/05/2019 I48.11 Longstanding persistent atrial Nic Bolaños MD fibrillation 06/28/2019 J44.1 Chronic obstructive pulmonary disease Nic Bolaños MD with (acute) exacerbation 06/28/2019 R31.9 Hematuria, unspecified Nic Bolaños MD 06/28/2019 R31.9 Hematuria, unspecified Nic Bolaños MD 06/28/2019 K62.5 Hemorrhage of anus and rectum Nic Bolaños MD 06/28/2019 K64.9 Unspecified hemorrhoids Nic Bolaños MD 06/28/2019 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 Nic Bolaños MD 06/28/2019 I48.11 Longstanding persistent atrial Nic Bolaños MD fibrillation 06/21/2019 M54.2 Cervicalgia Nic Bolaños MD 06/21/2019 M25.511 Pain in right shoulder Nic Bolaños MD 06/21/2019 J44.1 Chronic obstructive pulmonary disease Nic Bolaños MD with (acute) exacerbation 06/21/2019 Z79.01 USP (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 Nic Bolaños MD 06/21/2019 I48.20 Chronic atrial fibrillation, unspecified Nic Bolaños MD 06/14/2019 R31.9 Hematuria, unspecified Makayla Cloud, REHABILITATION TEAM LEAD 06/14/2019 J44.9 Chronic obstructive pulmonary disease, Makayla Colud, REHABILITATION TEAM LEAD unspecified 06/14/2019 R06.2 Wheezing Makayla Cloud, REHABILITATION TEAM LEAD 06/14/2019 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 Makayla Cloud, REHABILITATION TEAM LEAD 06/14/2019 I48.11 Longstanding persistent atrial Makayla Cloud, MAYELA fibrillation 06/10/2019 J44.1 Chronic obstructive pulmonary disease Nic Bolaños MD with (acute) exacerbation 06/04/2019 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 Nic Bolaños MD 06/04/2019 I48.11 Longstanding persistent atrial Nic Bolaños MD fibrillation 05/31/2019 J44.9 Chronic obstructive pulmonary disease, Nic Bolaños MD unspecified 05/31/2019 Z79.01 USP (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 Nic Bolaños MD 05/31/2019 I48.20 Chronic atrial fibrillation, unspecified Nic Bolaños MD 05/31/2019 I49.5 Sick sinus syndrome Nic Bolaños MD 05/31/2019 I27.20 Pulmonary hypertension, unspecified Nic Bolaños MD 05/31/2019 J96.11 Chronic respiratory failure with hypoxia Nic Bolaños MD 05/28/2019 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 Plan of Treatment Future Appointment(s):07/22/2019 2:40 pm - Nic Bolaños MD at Main Aptsej3711/23/2019 2:40 pm - Nic Vela M.D. at [facility] [id number] 10:15 am - Nic Bolaños MD at [facility] Bmsfcr9610/04/2019 9:20 am - Nic Bolaños MD at [facility] Konamd0107/15/2019 - Nic Bolaños MDJ44.1 Chronic obstructive pulmonary disease with (acute) exacerbationNew Medication:Doxycycline Hyclate 100 mg - 1 by mouth twice a dayAllComments: Medication Management Patient Understands medications he's taking? Yes No Are there Barriersto Adherence? Yes No Has the patient been asked about herbal supplements and therapies, and OTC meds? Yes No Functional Status Description No Information Available Mental Status Description No Information Available Referrals Refer to Dr Reason for Referral Status Appt Date Derrick Wang Hematuria jw Sent [address] [place] [address] [place] [address] [phone] Gris Price COPD jw Sent [address] [facility] [id number] [phone] José Luis Vines MD a-fib jw Scheduled 06/11/2019 [address] [facility] [address] [place] [address] [phone] [facility] overnight O2 test. Order faxed. LT Sent [address] [place] [address] [phone]
--- OUTSIDE RECORDS SUMMARY | 2019-09-04 21:41 | XMS REPORT | Continuity of Care Document ---
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 Problems Active Problems Provider Date Type 2 [...] Medications SIG Qnty Indications Ordering Date Provider Onetouch Ultra Test Test blood 100units Milagro Gómez 08/24/2019 Strips glucose twice MAYELA Mendoza daily dx e11.9 lastr seen 07/22/2019 Onetouch Ultra Smart Test blood sugar 100units Milagro Gómez 08/03/2019 Test Strips twice daily and MAYELA Mendoza Strips as needed/directed Freestyle Lite Blood Test Blood Sugars 300units Milagro Gómez 08/03/2019 Glucose Twice Daily And MAYELA Mendoza Strips as Directed Warfarin Sodium one po daily as 90tabs Nic Lew 07/23/2019 7.5mg directed by MD Mami Tablets Coumadin clinic Doxycycline Hyclate 1 by mouth twice 14caps J44.1 Gia 07/15/2019 a day MD Mami 100mg Capsules Multivitamin Adult use 1 by mouth 30tabs Makayla Waller 07/12/2019 q.d MAYELA Cloud Tablets Ipratropium Use 1 Inhalation 270units Gia 05/31/2019 [place]/Albuterol Via Nebulizer MD Mami Sulfate Every 4 Hours as Needed 0.5-2.5(3)mg/3ML Solution Oxygen 2 liters nasal Z79.01 Fiona Rodríguez 05/13/2019 cannula at night Flori Villaseñor Simvastatin 1 by mouth every 90tabs [facility] 10mg day MD Mami Tablets Montelukast Sodium 1 by mouth every Unknown 10mg day Tablets Digoxin 1 by mouth every 90tabs [facility] 125mcg Tablets day MD Mami Levothyroxine Sodium 1 by mouth every 90tabs [facility] day MD Mami 88mcg Tablets Primidone 2 po at hs Unknown 50mg Tablets Gabapentin 1 by mouth once Unknown 300mg in the morning Capsules and 1 tab at night Metformin HCL 1 by mouth twice 60tabs [facility] 500mg daily MD Mami Tablets Finasteride 1 by mouth every 90tabs [facility] 5mg Tablets day MD Mami Eplerenone 1 by mouth every 45tabs [facility] 25mg Tablets other day MD Mami Warfarin Sodium 1 by mouth every 90Tablet Z79.01 Nic 5mg day or as MD Mami Tablets directed by provider I48.20 Furosemide 20mg 1 by mouth every day Unknown Tablets History Medications Advair Diskus inhale 1 puff by 60units J44.1 Makayla Waller 07/12/2019 - mouth two times MAYELA Cloud 08/10/2019 100-50mcg/Dose Aerosol daily rinse mouth after use Medrol as directed 1unprincess J44.1 Nic Lew 06/28/2019 - 4mg TBPShmuel Bolaños MD 07/12/2019 Medrol as directed 1unprincess Lew 06/21/2019 - 4mg JETHRO Bolaños MD 07/12/2019 Tramadol HCL 1 by mouth every 28tabs Nic Lew 06/21/2019 - 50mg Tablets 6 hours as MD Mami 07/12/2019 needed Azithromycin 2 tabs today, 6tabs Nic Lew 06/21/2019 - 250mg then 1 tab daily MD Mami 07/08/2019 Tablets for next 4 days Medrol as directed 1mirza Lew 06/10/2019 - 4mg JETHRO Bolaños MD 06/10/2019 Prednisone take 5 by mouth 30tabs J44.1 Milagro Gómez 05/21/2019 - 10mg Tablets daily for 2 Reji, MARKETING PROFESSOR 05/31/2019 days, then 4 for 2 days, then [...] Test Result H/L Range Note Laboratory test 08/18/2019 [facility] ([facility]) 1.3 Low 2.0-3.0 finding (607)- - Laboratory test 07/30/2019 [facility] ([facility]) 1.3 Low 2.0-3.0 finding (607)- - Laboratory test 07/26/2019 [facility] (Fma) 1.3 Low 2.0-3.0 finding (607)- - Laboratory test 07/22/2019 [facility] Inr (a) 1.1 Low 2.0-3.0 finding (607)- - Laboratory test 07/05/2019 [facility] Inr (a) 2.3 2-3 finding (607)- - Laboratory test 06/28/2019 [place] [place]([facility]) PSA 0.6 ng/mL 0.0-4.0 finding Ua - Micro (a) 06/28/2019 [facility] Appearance cloudy (607)- - Color brown Glucose, Urine (Fma/CMC/CTX) 1000 mg/dL High known diabetic Bilirubin neg Ketones neg SP Grav 1.020 Blood large PH 5.5 Protein ssa 1+ Urobil 0.2 Nitrite neg Leukocytes (a/CMC/Centrex) neg Hyaline - /Lpf Granular - /Lpf WBC (a,Centrex) 3-5 RBC >100 Mucus (a/CBC/Centrex) - /Lpf Epith - /Lpf Bacteria trace /Hpf Amorphous (a/CMC/Centrex) - /Lpf Crystals, Fluid (a/CMC/CTX) - Z#Comments - Laboratory test 06/28/2019 [facility] Inr (Fma) 3.6 High 2.0-3.0 finding (607)- - Urine Culture And 06/28/2019 [facility] Urine Culture SEE RESULT 1 Sensitivities BELOW Laboratory test 06/27/2019 [facility] B-Type 95 pg/mL <=100 finding Natriuretic Peptide BNP Inr/Protime 06/27/2019 [facility] Inr 4.61 High 0.82-1.09 2 Laboratory test 06/27/2019 [facility] Troponin-I 0.02 ng/mL <0.03 3 finding (TnI) Comp Metabolic 06/27/2019 [facility] Sodium 138 mmol/L Normal 135-145 Panel Potassium [...] Egfr 116.2 >60 4 Laboratory test 06/27/2019 [facility] Lactic Acid 1.5 mmol/L Normal 0.5-2.0 5 finding CBC Auto Diff 06/27/2019 [facility] White Blood Count 5.3 10^3/uL Normal 3.5- [...] Blood Cells % 0.0 Laboratory test 06/27/2019 [facility] Point of Care 94 mg/dL Normal 70-100 6 finding Glucose Laboratory test 06/27/2019 [facility] Troponin-I (TnI) 0.01 ng/mL <0.03 7 finding Laboratory test 06/21/2019 [facility] (F[facility]) 1.6 Low 2.0-3.0 finding (607)- [...] - Z#Comments - Laboratory test finding 06/14/2019 [facility] Inr (a) 1.7 Low 2.0- 3.0 (607)- - Laboratory test finding 06/04/2019 [facility] Inr (Fma) 1.9 Low 2.0- 3.0 (607)- - Laboratory test finding 05/28/2019 [facility] (F[facility]) 1.7 Low 2.0- 3.0 (607)- - Laboratory test finding 05/21/2019 [facility] Inr (Fma) 1.4 Low 2.0- 3.0 (607)- - 1 SEE RESULT BELOW Name: ERWINLESLIE : [address]: Nic Bolaños MD Acct: [id number] Unit: [id number] AGE: 84 Location: [facility] Re06/28/19 SEX: M Status: REG REF SPEC: [id number] IVAN: 06/28/19-1038 [facility] DR: Nic Bolaños MD REQ: [id number] RECD: 06/28/19 STATUS: COMP _ SOURCE: URINE SPDESC: ORDERED: Urine Culture COMMENTS: Katherine nicholson [id number] Urine Source: Random Procedure Result Reported Site Urine Culture Final 06/29/19- 1512 ML No Growth (<1,000 CFU/mL) * ML - Main Lab . END OF REPORT DEPARTMENT OF PATHOLOGY, [address] [place] [address] Babak Del Castillo M.D. Director [facility] # [id number] 2 Standard intensity warfarin therapeutic range: 2.0-3.0 High intensity warfarin therapeutic range: 2.5-3.5 3 Troponin-I testing on Plasma Separator Tubes (PST) has a known false positive rate of 0.20-0.40%. All positive troponins reflex immediately to secondary confirmatory testing. Using the [employer] DxI 800 Access Immunoassay systems, the 99th [...] 5 Kidney failure <15 (or dialysis) 5 [facility] Severe Sepsis and Septic Shock Management Bundle Measure requires all lactic acids initially measuring >2.0 mmol/L be repeated. 6 Hands Assembler: [id number] 7 Troponin-I testing on Plasma Separator Tubes (PST) has a known false positive rate of 0.20-0.40%. All positive troponins reflex immediately to secondary confirmatory testing. Using the [employer] DxI 800 Access Immunoassay systems, the 99th percentile upper reference limit was demonstrated to be < 0.03 ng/mL. Procedures Date Code Description Status 08/18/2019 31325 Finger Or Heel Stick Completed 08/13/2019 36460 Finger Or Heel Stick Completed 07/30/2019 60916 Finger Or Heel Stick Completed 07/26/2019 53108 Finger Or Heel Stick Completed 07/22/2019 01209 Pulse Oximetry Completed 07/22/2019 36389 Finger Or Heel Stick Completed 07/15/2019 38278 Pulse Oximetry Completed 07/12/2019 31354 Pulse Oximetry Completed 07/08/2019 79890 Inject/Drain Joint/Bursa Major Completed 07/05/2019 34579 Finger Or Heel Stick Completed 06/28/2019 32647 Pulse Oximetry Completed 06/21/2019 00877 Pulse Oximetry Completed 06/21/2019 47277 Finger Or Heel Stick Completed 06/14/2019 72232 Finger Or Heel Stick Completed 06/10/2019 27522 Pulse Oximetry Completed 06/04/2019 68641 Finger Or Heel Stick Completed 05/28/2019 18203 Finger Or Heel Stick Completed 05/21/2019 04143 Pulse Oximetry Completed 05/21/2019 75315 Finger Or Heel Stick Completed Medical Devices Description No Information Available Encounters Type Date Location Provider Dx Diagnosis Office Visit 08/18/2019 Main Office Nic Lew 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 I48.20 Chronic atrial fibrillation, unspecified Office Visit 07/22/2019 2:40p Main Office Nic Terrell.1 Chronic obstructive MD Mami pulmonary disease w (acute) exacerbation 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 I48.11 Longstanding persistent atrial fibrillation Office Visit 07/15/2019 11:40a Main Office Nic Lew J44.1 Chronic obstructive MD Mami pulmonary disease w (acute) exacerbation Office Visit 07/12/2019 11:00a Main Office Makayla Waller J44.1 Chronic obstructive MAYELA Cloud pulmonary disease w (acute) exacerbation J06.9 Acute upper respiratory infection, unspecified Office Visit 07/08/2019 11:30a Main Office Nic Lew M75.01 Adhesive MD Mami capsulitis of right shoulder 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 J44.1 Chronic obstructive pulmonary disease w (acute) exacerbation Office Visit 06/28/2019 [facility] Nic Huff44.1 Chronic 8:40a Office MD Mami obstructive pulmonary disease w (acute) exacerbation R31.9 Hematuria, unspecified K62.5 Hemorrhage of anus and rectum K64.9 Unspecified hemorrhoids Office Visit 06/21/2019 1:00p [facility] Nic Lew M54.2 Cervicalgia MD Mami M25.511 Pain in right shoulder J44.1 Chronic obstructive pulmonary disease w (acute) exacerbation 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 I48.20 Chronic atrial fibrillation, unspecified Office Visit 06/14/2019 2:45p Main Office Makayla Waller R31.9 Hematuria, Cloud, MARKETING PROFESSOR unspecified J44.9 Chronic obstructive pulmonary disease, unspecified R06.2 Wheezing Z79.01 [facility] (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 I48.11 Longstanding persistent atrial fibrillation Office Visit 06/10/2019 Main Office Nic Huff44.1 Chronic 11:30a MD Mami obstructive pulmonary disease w (acute) exacerbation Office Visit 05/31/2019 [facility] Nic Huff44.9 Chronic 4:30p Office MD Mami obstructive pulmonary disease, unspecified 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 I48.20 Chronic atrial fibrillation, unspecified I49.5 Sick sinus syndrome I27.20 Pulmonary hypertension, unspecified J96.11 Chronic respiratory failure with hypoxia Office Visit 05/21/2019 10:15a [facility] Milagro Huff16.8 Pneumonia due to MAYELA Mendoza other specified infectious organisms I48.20 Chronic atrial fibrillation, unspecified Z79.01 [facility] (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 J44.1 Chronic obstructive pulmonary disease w (acute) exacerbation Office Visit 05/13/2019 3:20p [facility] Fiona Huff16.8 Pneumonia due to Flori Villaseñor other specified infectious organisms J44.9 Chronic obstructive pulmonary disease, unspecified E03.9 Hypothyroidism, unspecified I48.20 Chronic atrial fibrillation, unspecified I49.5 Sick sinus syndrome E11.21 Type 2 diabetes mellitus with diabetic nephropathy I27.20 Pulmonary hypertension, unspecified E78.5 Hyperlipidemia, unspecified R60.0 Localized edema Assessments Date Code Description Provider 08/27/2019 I48.20 Chronic atrial fibrillation, unspecified Nic Bolaños MD 08/27/2019 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 Nic Bolaños MD 08/18/2019 Z79.01 [facility] (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 Nic Bolaños MD 08/18/2019 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 Nic Bolaños MD 08/18/2019 I48.20 Chronic atrial fibrillation, unspecified Nic Bolaños MD 08/18/2019 I48.20 Chronic atrial fibrillation, unspecified Nic Bolaños MD 08/13/2019 Z79.01 [facility] (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 Nic Bolaños MD 08/13/2019 I48.11 Longstanding persistent atrial Nic Bolaños MD fibrillation 07/30/2019 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 Nic Bolaños MD 07/30/2019 I48.11 Longstanding persistent atrial Nic Bolaños MD fibrillation 07/26/2019 Z79.01 [facility] (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 Nic Bolaños MD 07/26/2019 I48.11 Longstanding persistent atrial Nic Bolaños MD fibrillation 07/22/2019 J44.1 Chronic obstructive pulmonary disease Nic Bolaños MD with (acute) exacerbation 07/22/2019 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 Nic Bolaños MD 07/22/2019 I48.11 Longstanding persistent atrial Nic Bolaños MD fibrillation 07/15/2019 J44.1 Chronic obstructive pulmonary disease Nic Bolaños MD with (acute) exacerbation 07/12/2019 J44.1 Chronic obstructive pulmonary disease Makayla Cloud NP with (acute) exacerbation 07/12/2019 J06.9 Acute upper respiratory infection, Makayla Cloud, MARKETING PROFESSOR unspecified 07/08/2019 M75.01 Adhesive capsulitis of right shoulder Nic Bolaños MD 07/08/2019 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 Nic Bolaños MD 07/08/2019 J44.1 Chronic obstructive pulmonary disease Nic Bolaños MD with (acute) exacerbation 07/05/2019 Z79.01 [facility] (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 Nic Bolaños MD 07/05/2019 I48.11 Longstanding persistent atrial Nic Bolaños MD fibrillation 06/28/2019 J44.1 Chronic obstructive pulmonary disease Nic Bolaños MD with (acute) exacerbation 06/28/2019 R31.9 Hematuria, unspecified Nic Bolaños MD 06/28/2019 R31.9 Hematuria, unspecified Nic Bolaños MD 06/28/2019 K62.5 Hemorrhage of anus and rectum Nic Bolaños MD 06/28/2019 K64.9 Unspecified hemorrhoids Nic Bolaños MD 06/28/2019 Z79.01 [facility] (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 Nic Bolaños MD 06/28/2019 I48.11 Longstanding persistent atrial Nic Bolaños MD fibrillation 06/21/2019 M54.2 Cervicalgia Nic Bolaños MD 06/21/2019 M25.511 Pain in right shoulder Nic Bolaños MD 06/21/2019 J44.1 Chronic obstructive pulmonary disease Nic Bolaños MD with (acute) exacerbation 06/21/2019 Z79.01 [facility]iary (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 Nic Bolaños MD 06/21/2019 I48.20 Chronic atrial fibrillation, unspecified Nic Bolaños MD 06/14/2019 R31.9 Hematuria, unspecified Makayla Cloud, MARKETING PROFESSOR 06/14/2019 J44.9 Chronic obstructive pulmonary disease, Makayla Cloud, MARKETING PROFESSOR unspecified 06/14/2019 R06.2 Wheezing Makayla Cloud, MARKETING PROFESSOR 06/14/2019 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 Makayla Cloud, MARKETING PROFESSOR 06/14/2019 I48.11 Longstanding persistent atrial Makayla Cloud, MAYELA fibrillation 06/10/2019 J44.1 Chronic obstructive pulmonary disease Nic Bolaños MD with (acute) exacerbation 06/04/2019 Z79.01 [facility]iary (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 Nic Bolaños MD 06/04/2019 I48.11 Longstanding persistent atrial Nic Bolaños MD fibrillation 05/31/2019 J44.9 Chronic obstructive pulmonary disease, Nic Bolaños MD unspecified 05/31/2019 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 Nic Bolaños MD 05/31/2019 I48.20 Chronic atrial fibrillation, unspecified Nic Bolaños MD 05/31/2019 I49.5 Sick sinus syndrome Nic Bolaños MD 05/31/2019 I27.20 Pulmonary hypertension, unspecified Nic Bolaños MD 05/31/2019 J96.11 Chronic respiratory failure with hypoxia Nic Bolaños MD 05/28/2019 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 nephropathy 05/13/2019 I27.20 Pulmonary hypertension, jasvirified Fiona Villaseñor M.D. 05/13/2019 E78.5 Hyperlipidemia, jasvirified Fiona Villaseñor M.D. 05/13/2019 R60.0 Localized edema Fiona Villaseñor M.D. Plan of Treatment Future Appointment(s):10/04/2019 9:20 am - Nic Bolaños MD at [facility]08/27/2019 - Nic Bolaños MDI48.20 Chronic atrial fibrillation, afvxidsbknhS06.01 penitentiary (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AllComments:Medication Management Patient Understands medications he's taking? Yes No Are there Barriersto Adherence? Yes No Has the patient been asked about herbal supplements and therapies, and OTC meds? Yes No Functional Status Description No Information Available Mental Status Description No Information Available Referrals Refer to Reason for Referral Status Appt Date Derrick Wang Hematuria jw Scheduled 08/23/[address] [place] [address] [place] [address] [phone] DeeGris cheng COPD jw Scheduled 07/27/[address] [facility] [address] [phone] [facility] Physical Evaluate and treat frozen Scheduled Therapy shoulder(s). Order faxed. LT [address] [facility] [address] [place] [address] [phone] José Luis Vines MD a-fib jw Scheduled 06/11/2019 [address] [facility] [address] [place] [address] [phone] [facility] overnight O2 test. Order faxed. LT Sent [address] [place] [address] [phone]
--- OUTSIDE RECORDS SUMMARY | 2019-09-04 21:41 | XMS REPORT | Continuity of Care Document ---
:1935 External Reference #:[id number] Author Name Gabriel Jaramillo Care Team Providers Name Role Phone Nic Bolaños MD - Family Care Team Information Field Case Manager [phone] Medicine Problems Description No Information Available Social [...] Result H/L Range Note Laboratory test 06/07/2019 [facility] Troponin- 0.04 ng/mL Critical high <0.03 [address] I (TnI) [place] [address] [phone] 1 Result TnIDx:0.04 Called to [id number] at: 13:54:35 by:[id number] Read back by: IVETH Troponin-I testing on Plasma Separator Tubes (PST) has a known false positive rate of 0.20-0.40%. All positive troponins reflex immediately to secondary confirmatory testing. Using the [employer]: [employer] 800 Access Immunoassay systems, the 99th percentile upper reference limit was demonstrated to be < 0.03 ng/mL. Procedures Date Code Description Status 06/11/2019 51630 EKG Tracing & Interpretation Completed 06/08/2019 52777 Treadmill Interp/Report Only Completed 06/08/2019 39695 Stress Test Supervsn W/Out I/R Completed 05/25/2019 03790 ECHO Transthorasic Realtime 2D W Doppler & Color Flow Hosp Completed Medical Devices Description No Information Available Encounters Type Date Location Provider Dx Diagnosis Office Visit 06/11/2019 [facility] José Luis Huff44.1 Chronic obstructive 3:00p Flori Vines pulmonary disease w (acute) exacerbation R31.9 Hematuria, unspecified I48.91 Unspecified atrial fibrillation E78.5 Hyperlipidemia, unspecified E11.9 Type 2 diabetes mellitus without complications E03.9 Hypothyroidism, unspecified I35.0 Nonrheumatic aortic (valve) stenosis I10 Essential (primary) hypertension R01.1 Cardiac murmur, unspecified Z95.0 Presence of cardiac pacemaker Office Visit 06/08/2019 9:16a [facility] Angelic Kirti, J44.1 Chronic Assoc,pc LATHE OPERATOR CONTACT LENS obstructive Hospitalists pulmonary disease w (acute) exacerbation E03.9 Hypothyroidism, unspecified I48.91 Unspecified atrial fibrillation I10 Essential (primary) hypertension E11.9 Type 2 diabetes mellitus without complications N40.0 Benign prostatic hyperplasia without lower urinry tract symp E78.5 Hyperlipidemia, unspecified Office Visit 06/07/2019 [facility] R07.9 Chest pain, 9:16a Assoc,pc MAYELA Ramos unspecified Hospitalists J44.9 Chronic obstructive pulmonary disease, unspecified I10 Essential (primary) hypertension E11.9 Type 2 diabetes mellitus without complications E78.5 Hyperlipidemia, unspecified I48.91 Unspecified atrial fibrillation N40.0 Benign prostatic hyperplasia without lower urinry tract symp R25.1 Tremor, unspecified E03.9 Hypothyroidism, unspecified Office Visit 05/25/2019 10:36a [facility] Angelic Kirti, J44.1 Chronic Assoc,pc LATHE OPERATOR CONTACT LENS obstructive Hospitalists pulmonary disease w (acute) exacerbation R31.9 Hematuria, unspecified I48.91 Unspecified atrial fibrillation E78.5 Hyperlipidemia, unspecified E11.9 Type 2 diabetes mellitus without complications E03.9 Hypothyroidism, unspecified N40.0 Benign prostatic hyperplasia without lower urinry tract symp I73.9 Peripheral vascular disease, unspecified Office Visit 05/24/2019 10:36a [facility] Angelic Kirti, J44.1 Chronic Assoc,pc LATHE OPERATOR CONTACT LENS obstructive Hospitalists pulmonary disease w (acute) exacerbation R31.9 Hematuria, unspecified R60.0 Localized edema I48.91 Unspecified atrial fibrillation E11.9 Type 2 diabetes mellitus without complications E03.9 Hypothyroidism, unspecified N40.0 Benign prostatic hyperplasia without lower urinry tract symp Assessments Date Code Description Provider 06/11/2019 J44.1 Chronic obstructive pulmonary José Luis Vines M.D. disease with (acute) exacerbation 06/11/2019 R31.9 Hematuria, unspecified José Luis Vines M.D. 06/11/2019 I48.91 Unspecified atrial fibrillation José Luis Vines M.D. 06/11/2019 E78.5 Hyperlipidemia, unspecified José Luis Vines M.D. 06/11/2019 E11.9 Type 2 diabetes mellitus without José Luis Vines M.D. complications 06/11/2019 E03.9 Hypothyroidism, unspecified José Luis Vines M.D. 06/11/2019 I35.0 Aortic valve stenosis José Luis Vines M.D. 06/11/2019 I10 Benign hypertension José Luis Vines M.D. 06/11/2019 R01.1 Cardiac murmur, unspecified José Luis Vines M.D. 06/11/2019 Z95.0 Presence of cardiac pacemaker José Luis Vines M.D. 06/08/2019 R07.9 Chest pain, unspecified Liza Rodriguez MD, [facility], [facility] 06/08/2019 J44.1 Chronic obstructive pulmonary Angelic Kirti, LATHE OPERATOR CONTACT LENS disease with (acute) exacerbation 06/08/2019 E03.9 Hypothyroidism, unspecified Angelic Kirti, LATHE OPERATOR CONTACT LENS 06/08/2019 I48.91 Unspecified atrial fibrillation Angelic Kirti, LATHE OPERATOR CONTACT LENS 06/08/2019 I10 Essential (primary) hypertension Angelic Kirti, LATHE OPERATOR CONTACT LENS 06/08/2019 E11.9 Type 2 diabetes mellitus without Angelic Kirti, LATHE OPERATOR CONTACT LENS complications 06/08/2019 N40.0 Benign prostatic hyperplasia without Angelic Kirti, LATHE OPERATOR CONTACT LENS lower urinary tract symptoms 06/08/2019 E78.5 Hyperlipidemia, unspecified Angelic Kirti, LATHE OPERATOR CONTACT LENS 06/07/2019 R07.9 Chest pain, unspecified Stefany Rachel, LATHE OPERATOR CONTACT LENS 06/07/2019 J44.9 Chronic obstructive pulmonary Stefany Newton, LATHE OPERATOR CONTACT LENS disease, unspecified 06/07/2019 I10 Benign hypertension Stefany Rachel, LATHE OPERATOR CONTACT LENS 06/07/2019 E11.9 Type 2 diabetes mellitus without Stefany Newton, LATHE OPERATOR CONTACT LENS complications 06/07/2019 E78.5 Hyperlipidemia, unspecified Setfany Newton, LATHE OPERATOR CONTACT LENS 06/07/2019 I48.91 Unspecified atrial fibrillation Stefany Newton, LATHE OPERATOR CONTACT LENS 06/07/2019 N40.0 Benign prostatic hyperplasia without Stefany Rachel, LATHE OPERATOR CONTACT LENS lower urinary tract symptoms 06/07/2019 R25.1 Tremor, unspecified Stefany Rachel, LATHE OPERATOR CONTACT LENS 06/07/2019 E03.9 Hypothyroidism, unspecified Stefany Newton, LATHE OPERATOR CONTACT LENS 05/25/2019 R60.9 Edema, unspecified José Luis Vines M.D. 05/25/2019 J44.1 Chronic obstructive pulmonary Angelic Kirti, LATHE OPERATOR CONTACT LENS disease with (acute) exacerbation 05/25/2019 R31.9 Hematuria, unspecified Angelic Kirti, LATHE OPERATOR CONTACT LENS 05/25/2019 I48.91 Unspecified atrial fibrillation Angelic Kirti, LATHE OPERATOR CONTACT LENS 05/25/2019 E78.5 Hyperlipidemia, unspecified Angelic Kirti, LATHE OPERATOR CONTACT LENS 05/25/2019 E11.9 Type 2 diabetes mellitus without Angelic Kirti, LATHE OPERATOR CONTACT LENS complications 05/25/2019 E03.9 Hypothyroidism, unspecified Angelic Kirti, LATHE OPERATOR CONTACT LENS 05/25/2019 N40.0 Benign prostatic hyperplasia without Angelic Kirti, LATHE OPERATOR CONTACT LENS lower urinary tract symptoms 05/25/2019 I73.9 Peripheral vascular disease, Angelic Kirti, LATHE OPERATOR CONTACT LENS unspecified 05/24/2019 J44.1 Chronic obstructive pulmonary Angelic Kirti, LATHE OPERATOR CONTACT LENS disease with (acute) exacerbation 05/24/2019 R31.9 Hematuria, unspecified Angelic Kirti, LATHE OPERATOR CONTACT LENS 05/24/2019 R60.0 Localized edema Angelic Kirti, LATHE OPERATOR CONTACT LENS 05/24/2019 I48.91 Unspecified atrial fibrillation Angelic Kirti, LATHE OPERATOR CONTACT LENS 05/24/2019 E11.9 Type 2 diabetes mellitus without Angelic Kirti, LATHE OPERATOR CONTACT LENS complications 05/24/2019 E03.9 Hypothyroidism, unspecified Angelic Kirti, LATHE OPERATOR CONTACT LENS 05/24/2019 N40.0 Benign prostatic hyperplasia without Angelic Kirti, LATHE OPERATOR CONTACT LENS lower urinary tract symptoms Plan of Treatment Future Appointment(s):08/09/2019 1:30 pm - Mile Dumont N.P. at [facility]11/03/2019 11:00 am - José Luis Vines M.D. at [facility]03/2020 - José Luis Vines M.D.J44.1 Chronic obstructive pulmonary disease with (acute) elulkluloyxqA54.9 Hematuria, unspecifiedRecommendations:suggest followup with PMD and qkhzgkkpnK56.91 Unspecified atrial fibrillationFollow up: medtronic pacer check please obtain cardiology records from Dr. Cuauhtemoc Cordero , [place] ov [place] 1 m ov [facility] 4 m check INR enroll in ljnxjqN44.5 Hyperlipidemia, haxdzxqulgeH61.9 Type 2 diabetes mellitus without dnkpgshdxmylgV16.9 Hypothyroidism, mhtyehdonntT95.0 Aortic valve xxsuwrwwR50 Benign hypertensionNew Xrays:US Aorta Screening, Scheduled: 08/01/19R01.1 Cardiac murmur, zryonaynjnjC14.0 Presence of cardiac pacemaker Functional Status Description No Information Available Mental Status Description No Information Available Referrals Description No Information Available
--- OUTSIDE RECORDS SUMMARY | 2019-09-04 21:41 | XMS REPORT | Continuity of Care Document ---
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 Medicine [employer] - [employer] Equipment [employer] Supplies Care Team Information Maintenance Superintendent Problems Active Problems Provider Date Type 2 [...] Qnty Indications Ordering Date Provider Onetouch Ultra Smart Test blood sugar 100units [...] 1 by mouth twice 14caps J44.1 Nic Louann 07/15/2019 a day MD Mami 100mg Capsules Multivitamin Adult use 1 by mouth 30tabs Makayla Waller 07/12/2019 q.d MAYELA Cloud Tablets Ipratropium Use 1 Inhalation 270units Nic TGia 05/31/2019 [place]/Albuterol Via Nebulizer MD Mami Sulfate Every 4 Hours as Needed 0.5-2.5(3)mg/3ML Solution Oxygen 2 liters nasal Z79.01 Fiona L. 05/13/2019 cannula at night Flori Villaseñor Simvastatin 1 by mouth every 90tabs [facility] 10mg day MD Mami Tablets Montelukast Sodium 1 by mouth every Unknown 10mg day Tablets Digoxin 1 by mouth every 90tabs [facility] 125mcg Tablets day MD Mami Levothyroxine Sodium 1 by mouth every 90tabs Nic day MD Mami 88mcg Tablets Primidone 2 po at hs Unknown 50mg Tablets Gabapentin 1 by mouth once Unknown 300mg in the morning Capsules and 1 tab at night Metformin HCL 1 by mouth twice 60tabs Nic 500mg daily MD Mami Tablets Finasteride 1 by mouth every 90tabs [facility] 5mg Tablets day MD Mami Eplerenone 1 by mouth every 45tabs [facility] 25mg Tablets other day MD [...] rinse mouth after use Medrol as directed 1units J44.1 Nic Louann 06/28/2019 - 4mg JETHRO Bolaños MD 07/12/2019 Medrol as directed 1unprincess [...] as directed 1unprincess Lew 06/10/2019 - 4mg JETHRO Bolaños MD 06/10/2019 Prednisone take 5 by mouth 30tabs J44.1 Milagro Gómez 05/21/2019 - 10mg Tablets daily for 2 Reji, ANATOMIC PATHOLOGY MANAGER 05/31/2019 days, then 4 for 2 days, [...] Test Result H/L Range Note Laboratory test 07/30/2019 [facility] (Fma) 1.3 Low 2.0-3.0 finding (607)- - Laboratory test 07/26/2019 [facility] Inr (Fma) 1.3 Low 2.0-3.0 finding (607)- - Laboratory test 07/22/2019 [facility] Inr (Fma) 1.1 Low 2.0-3.0 finding (607)- - Laboratory test 07/05/2019 [facility] Inr (Fma) 2.3 2-3 finding (607)- - Laboratory test 06/28/2019 [place]) PSA 0.6 ng/mL 0.0-4.0 finding Ua - Micro (a) 06/28/2019 family [facility] Appearance cloudy (607)- - Color [...] (Fma/CMC/CTX) - Z#Comments - Laboratory test 06/28/2019 [facility] Inr ([facility]) 3.6 High 2.0-3.0 finding (607)- - Urine Culture And 06/28/2019 [facility] Urine Culture SEE RESULT 1 Sensitivities BELOW Laboratory test 06/27/2019 [facility] B-Type 95 pg/mL <=100 finding Natriuretic Peptide BNP Inr/Protime 06/27/2019 [facility] Inr 4.61 High 0.82-1.09 2 Laboratory test 06/27/2019 [facility] Troponin-I 0.02 ng/mL <0.03 3 finding (TnI) Comp Metabolic 06/27/2019 [facility] Sodium 138 mmol/L Normal 135-145 Panel Potassium [...] Egfr 116.2 >60 4 Laboratory test 06/27/2019 [facility] Lactic Acid 1.5 mmol/L Normal 0.5-2.0 5 finding CBC Auto Diff 06/27/2019 [facility] White Blood Count 5.3 10^3/uL Normal 3.5- [...] Blood Cells % 0.0 Laboratory test 06/27/2019 [facility] Point of Care 94 mg/dL Normal 70-100 6 finding Glucose Laboratory test 06/27/2019 [facility] Troponin-I (TnI) 0.01 ng/mL <0.03 7 finding Laboratory test 06/21/2019 [facility] Inr (a) 1.6 Low 2.0-3.0 finding (607)- - Ua - Micro (a) 06/14/2019 [facility] medicine Appearance cloudy (607)- - Color brown Glucose, Urine (a/[facility]/CTX) neg Bilirubin neg Ketones neg SP Grav 1.015 Blood large PH 7.5 Protein trace Urobil 0.2 Nitrite neg Leukocytes (a/[facility]/Centrex) neg Hyaline - /Lpf Granular - /Lpf WBC (Fma,Centrex) 0-1 RBC 20-30 Mucus (Fma/CBC/Centrex) - /Lpf Epith rare /Lpf Bacteria rare /Hpf Amorphous (Fma/CMC/Centrex) - /Lpf Crystals, Fluid (Fma/CMC/CTX) - Z#Comments - Laboratory test finding 06/14/2019 [facility] Inr (Fma) 1.7 Low 2.0- 3.0 (607)- - Laboratory test finding 06/04/2019 [facility] Inr (Fma) 1.9 Low 2.0- 3.0 (607)- - Laboratory test finding 05/28/2019 [facility] Inr (Fma) 1.7 Low 2.0- 3.0 (607)- - Laboratory test finding 05/21/2019 [facility] Inr (Fma) 1.4 Low 2.0- 3.0 (607)- - 1 SEE RESULT BELOW Name: LESLIE HOOD : [address]: Nic Bolaños MD Acct: [id number] Unit: [id number] AGE: 84 Location: [facility] Re06/28/19 SEX: M Status: REG REF SPEC: [id number] IVAN: 06/28/19-[address] [facility] [address]: Nic Bolaños MD REQ: [id number] RECD: 06/28/19454 STATUS: COMP _ SOURCE: URINE [facility]: ORDERED: Urine Culture COMMENTS: Katherine nicholson [id number] Urine Source: Random Procedure Result Reported Site Urine Culture Final 06/29/19- 1512 ML No Growth (<1,000 CFU/mL) * ML - Main Lab . END OF REPORT DEPARTMENT OF PATHOLOGY, [address] [place] [address] Babak Del Castillo M.D. Director [facility] # [id number] 2 Standard intensity warfarin therapeutic range: 2.0-3.0 High intensity warfarin therapeutic range: 2.5-3.5 3 Troponin-I testing on Plasma Separator Tubes (PST) has a known false positive rate of 0.20-0.40%. All positive troponins reflex immediately to secondary confirmatory testing. Using the [employer] 800 Access Immunoassay systems, the 99th [...] 5 Kidney failure <15 (or dialysis) 5 [facility] Severe Sepsis and Septic Shock Management Bundle Measure requires all lactic acids initially measuring >2.0 mmol/L be repeated. 6 Materials Management Supervisor: [id number] 7 Troponin-I testing on Plasma Separator Tubes (PST) has a known false positive rate of 0.20-0.40%. All positive troponins reflex immediately to secondary confirmatory testing. Using the [employer] DxI 800 Access Immunoassay systems, the 99th percentile upper reference limit was demonstrated to be < 0.03 ng/mL. Procedures Date Code Description Status 08/13/2019 13352 Finger Or Heel Stick Completed 07/30/2019 38682 Finger Or Heel Stick Completed 07/26/2019 95269 Finger Or Heel Stick Completed 07/22/2019 81437 Pulse Oximetry Completed 07/22/2019 83384 Finger Or Heel Stick Completed 07/15/2019 32200 Pulse Oximetry Completed 07/12/2019 01360 Pulse Oximetry Completed 07/08/2019 28038 Inject/Drain Joint/Bursa Major Completed 07/05/2019 73260 Finger Or Heel Stick Completed 06/28/2019 92450 Pulse Oximetry Completed 06/21/2019 71482 Pulse Oximetry Completed 06/21/2019 22887 Finger Or Heel Stick Completed 06/14/2019 84643 Finger Or Heel Stick Completed 06/10/2019 24744 Pulse Oximetry Completed 06/04/2019 32713 Finger Or Heel Stick Completed 05/28/2019 22882 Finger Or Heel Stick Completed 05/21/2019 56267 Pulse Oximetry Completed 05/21/2019 50132 Finger Or Heel Stick Completed Medical Devices Description No Information Available Encounters Type Date Location Provider Dx Diagnosis Office Visit 07/22/2019 Main Office Nic Huff44.1 Chronic obstructive 2:40p MD Mami pulmonary disease w (acute) exacerbation Z79.01 prison (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 I48.11 Longstanding persistent atrial fibrillation Office Visit 07/15/2019 11:40a Main Office Nic Lew J44.1 Chronic obstructive MD Mami pulmonary disease w (acute) exacerbation Office Visit 07/12/2019 11:00a Main Office Makayla Waller J44.1 Chronic obstructive Pedro Luis, ANATOMIC PATHOLOGY MANAGER pulmonary disease w (acute) exacerbation J06.9 Acute upper respiratory infection, unspecified Office Visit 07/08/2019 11:30a Main Office Nic Lew M75.01 Adhesive MD Mami capsulitis of right shoulder 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 J44.1 Chronic obstructive pulmonary disease w (acute) exacerbation Office Visit 06/28/2019 [facility] Nic Huff44.1 Chronic 8:40a Office MD Mami obstructive pulmonary disease w (acute) exacerbation R31.9 Hematuria, unspecified K62.5 Hemorrhage of anus and rectum K64.9 Unspecified hemorrhoids Office Visit 06/21/2019 1:00p [facility] Office Nic Lew M54.2 Cervicalgia MD Mami M25.511 Pain in right shoulder J44.1 Chronic obstructive pulmonary disease w (acute) exacerbation Z79.01 prison (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 I48.20 Chronic atrial fibrillation, unspecified Office Visit 06/14/2019 2:45p Main Office Makayla Waller R31.9 Hematuria, Cloud, ANATOMIC PATHOLOGY MANAGER unspecified J44.9 Chronic obstructive pulmonary disease, unspecified R06.2 Wheezing Z79.01 prison (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 I48.11 Longstanding persistent atrial fibrillation Office Visit 06/10/2019 Main Office Nic Huff44.1 Chronic 11:30a MD Mami obstructive pulmonary disease w (acute) exacerbation Office Visit 05/31/2019 [facility] Nic Huff44.9 Chronic 4:30p Office MD Mami obstructive pulmonary disease, unspecified 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 I48.20 Chronic atrial fibrillation, unspecified I49.5 Sick sinus syndrome I27.20 Pulmonary hypertension, unspecified J96.11 Chronic respiratory failure with hypoxia Office Visit 05/21/2019 10:15a [facility] Milagro Gómez J16.8 Pneumonia due to MAYELA Mendoza other specified infectious organisms I48.20 Chronic atrial fibrillation, unspecified Z79.01 prison (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 J44.1 Chronic obstructive pulmonary disease w (acute) exacerbation Office Visit 05/13/2019 3:20p [facility] Fiona Rodríguez J16.8 Pneumonia due to Flori Villaseñor other specified infectious organisms J44.9 Chronic obstructive pulmonary disease, unspecified E03.9 Hypothyroidism, unspecified I48.20 Chronic atrial fibrillation, unspecified I49.5 Sick sinus syndrome E11.21 Type 2 diabetes mellitus with diabetic nephropathy I27.20 Pulmonary hypertension, unspecified E78.5 Hyperlipidemia, unspecified R60.0 Localized edema Assessments Date Code Description Provider 08/18/2019 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 Nic Bolaños MD 08/13/2019 Z79.01 prison (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 Nic Bolaños MD 08/13/2019 I48.11 Longstanding persistent atrial Nic Bolaños MD fibrillation 07/30/2019 Z79.01 prison (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 Nic Bolaños MD 07/30/2019 I48.11 Longstanding persistent atrial Nic Bolaños MD fibrillation 07/26/2019 Z79.01 prison (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 Nic Bolaños MD 07/26/2019 I48.11 Longstanding persistent atrial Nic Bolaños MD fibrillation 07/22/2019 J44.1 Chronic obstructive pulmonary disease Nic Bolaños MD with (acute) exacerbation 07/22/2019 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 Nic Bolaños MD [...] Bolaños MD with (acute) exacerbation 07/05/2019 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 Nic Bolaños MD 07/05/2019 I48.11 Longstanding persistent atrial Nic Bolaños MD fibrillation 06/28/2019 J44.1 Chronic obstructive pulmonary disease Nic Bolaños MD with (acute) exacerbation 06/28/2019 R31.9 Hematuria, unspecified Nic Bolaños MD 06/28/2019 R31.9 Hematuria, unspecified Nic Bolaños MD 06/28/2019 K62.5 Hemorrhage of anus and rectum Nic Bolaños MD 06/28/2019 K64.9 Unspecified hemorrhoids Nic Bolaños MD 06/28/2019 Z79.01 prison (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 Nic Bolaños MD 06/28/2019 I48.11 Longstanding persistent atrial Nic Bolaños MD fibrillation 06/21/2019 M54.2 Cervicalgia Nic Bolaños MD 06/21/2019 M25.511 Pain in right shoulder Nic Bolaños MD 06/21/2019 J44.1 Chronic obstructive pulmonary disease Nic Bolaños MD with (acute) exacerbation 06/21/2019 Z79.01 prison (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 Nic Bolaños MD 06/21/2019 I48.20 Chronic atrial fibrillation, unspecified Nic Bolaños MD 06/14/2019 R31.9 Hematuria, unspecified Makayla Cloud, MAYELA 06/14/2019 J44.9 Chronic obstructive pulmonary disease, Makayla Cloud NP unspecified 06/14/2019 R06.2 Wheezing Makayla Cloud NP 06/14/2019 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 Makayla Cloud, MAYELA 06/14/2019 I48.11 Longstanding persistent atrial Makayla Cloud, MAYELA fibrillation 06/10/2019 J44.1 Chronic obstructive pulmonary disease Nic Bolaños MD with (acute) exacerbation 06/04/2019 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 Nic Bolaños MD 06/04/2019 I48.11 Longstanding persistent atrial Nic Bolaños MD fibrillation 05/31/2019 J44.9 Chronic obstructive pulmonary disease, Nic Bolaños MD unspecified 05/31/2019 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 Nic Bolaños MD 05/31/2019 I48.20 Chronic atrial fibrillation, unspecified Nic Bolaños MD 05/31/2019 I49.5 Sick sinus syndrome Nic Bolaños MD 05/31/2019 I27.20 Pulmonary hypertension, unspecified Nic Bolaños MD 05/31/2019 J96.11 Chronic respiratory failure with hypoxia Nic Bolaños MD 05/28/2019 Z79.01 prison (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 Nic Bolaños MD 05/28/2019 I48.20 Chronic atrial fibrillation, unspecified Nic Bolaños MD 05/21/2019 J16.8 Pneumonia due to other specified Milagro Mendoza NP infectious organisms 05/21/2019 I48.20 Chronic atrial fibrillation, unspecified Milagro Mendoza NP 05/21/2019 Z79.01 prison (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 Milagro Mendoza NP 05/21/2019 J44.1 Chronic obstructive pulmonary disease Milagro Mednoza NP with (acute) exacerbation 05/13/2019 J16.8 Pneumonia [...] Fiona Villaseñor M.D. Plan of Treatment Future Appointment(s):08/27/2019 8:30 am - Nic Bolaños MD at [facility] Ogtdvr8911/23/2019 2:40 pm - Nic Vela M.D. at [facility] [id number] 9:20 am - Nic Bolaños MD at [facility] Zueytt5008/18/2019 - Nic Bolaños MD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AllComments: Medication Management Patient Understands medications he's taking? Yes No Are there Barriersto Adherence? Yes No Has the patient been asked about herbal supplements and therapies, and OTC meds? Yes No Functional Status Description No Information Available Mental Status Description No Information Available Referrals Refer to Reason for Referral Status Appt Date Derrick Wang Hematuria jw Scheduled 08/23/[address] [place] [address] [place] [address] [phone] Gris Price COPD jw Scheduled 07/27/[address] [facility] [address] [phone] [facility] [place] Physical Evaluate and treat frozen Scheduled Therapy shoulder(s). Order faxed. LT [address] [facility] [address] [place] [address] [phone] José Luis Vines MD a-fib jw Scheduled 06/11/2019 [address] [facility] 4[address] [place] [address] [phone] [facility] overnight O2 test. Order faxed. LT Sent [address] [place] [id number] [phone]
--- OUTSIDE RECORDS SUMMARY | 2019-09-04 21:41 | XMS REPORT | Continuity of Care Document ---
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 Testing And Repair Technician Medicine [employer] - Oxygen Equipment [employer] Supplies Care Team Information Emissions Testing And Repair Technician Problems Active Problems Provider Date Type 2 [...] Medications SIG Qnty Indications Ordering Date Provider Advair Diskus inhale 1 puff by 60units J44.1 Makayla Waller 07/12/2019 mouth two times MAYELA Cloud 100-50mcg/Dose daily rinse mouth Aerosol after use Multivitamin Adult use 1 by mouth 30tabs Makayla Waller 07/12/2019 q.d MAYELA Cloud Tablets Ipratropium Use 1 Inhalation 270units Nic Lew 05/31/2019 Nisswa/Albuterol Via Nebulizer MD Mami Sulfate Every 4 Hours as Needed 0.5-2.5(3)mg/3ML Solution Oxygen 2 liters nasal Z79.01 Fiona McgrathGia 05/13/2019 cannula at night Flori Villaseñor Simvastatin 1 by mouth every Unknown 10mg day Tablets Montelukast Sodium 1 by mouth every Unknown 10mg day Tablets Digoxin 1 by mouth every 90tabs Nic Lew 125mcg Tablets day MD Mami Levothyroxine Sodium 1 by mouth every Unknown day 88mcg Tablets Primidone 2 po at hs Unknown 50mg Tablets Gabapentin 1 by mouth once Unknown 300mg in the morning Capsules and 1 tab at night Metformin HCL 1 by mouth twice Unknown 500mg daily Tablets Finasteride 1 by mouth every Unknown 5mg Tablets day Eplerenone 1 by mouth every 45tabs Nic Lew 25mg Tablets other day MD Mami Warfarin Sodium 1 by mouth every 90Tablet Z79.01 Milagro Gómez 5mg day or as MAYELA Mendoza Tablets directed by provider I48.20 Furosemide 20mg 1 by mouth every day Unknown Tablets History Medications Medrol as directed 1units J44.1 Nic Lew 06/28/2019 - 4mg JETHRO Bolaños MD 07/12/2019 Medrol as directed 1unprincess Lew 06/21/2019 - 4mg JETHRO Bolaños MD 07/12/2019 Tramadol HCL 1 by mouth every 28tabs Nic Lew 06/21/2019 - 50mg 6 hours as MD Mami 07/12/2019 Tablets needed Azithromycin 2 tabs today, 6tabs Nic Lew 06/21/2019 - 250mg then 1 tab daily MD Mami 07/08/2019 Tablets for next 4 days Medrol as directed unprincess Lew 06/10/2019 - 4mg JETHRO Bolaños MD 06/10/2019 Prednisone take 5 by mouth 30tabs J44.1 Milagro Mendoza, 05/21/2019 - 10mg daily for 2 ECHOMETER ENGINEER 05/31/2019 Tablets days, then 4 for 2 days, then 3 for 2 days, then 2 for 2 days, then 1 daily until gone Immunizations Description No Information Available Vital Signs Date Vital Result Comment 07/12/2019 11:10am BP Systolic 122 mmHg BP Diastolic 62 mmHg Heart Rate 76 /min Body Temperature 98.4 F Respiratory Rate 18 /min O2 % BldC Oximetry 91 % Height 72 inches 6'0" Weight 171.00 lb BMI (Body Mass Index) 23.2 kg/m2 07/08/2019 11:17am BP Systolic 118 mmHg BP Diastolic 70 mmHg Heart Rate 72 /min Body Temperature 98.1 F Respiratory Rate 15 /min O2 % BldC Oximetry 98 % Ra Weight 172.00 lb Results Test Acquired Date Facility Test Result H/L Range Note Laboratory test 07/05/2019 [facility] Inr (Fma) 2.3 2-3 finding (607)- - Laboratory test 06/28/2019 [facility](a) PSA 0.6 ng/mL 0.0-4.0 finding Ua - Micro (a) 06/28/2019 [facility] Appearance cloudy (607)- - Color brown Glucose, Urine (Fma/CMC/CTX) 1000 mg/dL High known diabetic Bilirubin neg Ketones neg SP Grav 1.020 Blood large PH 5.5 Protein ssa 1+ Urobil 0.2 Nitrite neg Leukocytes (a/CMC/Centrex) neg Hyaline - /Lpf Granular - /Lpf WBC (a,Centrex) 3-5 RBC >100 Mucus (Fma/CBC/Centrex) - /Lpf Epith - /Lpf Bacteria trace /Hpf Amorphous (Fma/CMC/Centrex) - /Lpf Crystals, Fluid (Fma/CMC/CTX) - Z#Comments - Laboratory test 06/28/2019 [facility] Inr (Fma) 3.6 High 2.0-3.0 finding (607)- - Urine Culture [place]28[place] [facility] [place] SEE RESULT 1 Sensitivities BELOW Laboratory test 06/27/2019 [facility] [place] B-Type 95 pg/mL <=100 finding Natriuretic Peptide BNP Inr/Protime 06/27/2019 [facility] 4.61 High 0.82-1.09 2 Laboratory test 06/27/2019 [facility] Troponin-I 0.02 ng/mL <0.03 3 finding (TnI) Comp Metabolic 06/27/2019 [facility] [place] Sodium 138 mmol/L Normal 135-145 Panel Potassium [...] Egfr 116.2 >60 4 Laboratory test 06/27/2019 [facility] [place] Lactic Acid 1.5 mmol/L Normal 0.5-2.0 5 finding CBC Auto Diff 06/27/2019 [facility] [place] White Blood Count 5.3 10^3/uL Normal 3.5- [...] Blood Cells % 0.0 Laboratory test 06/27/2019 [facility] [place] Point of Care 94 mg/dL Normal 70-100 6 finding Glucose Laboratory test 06/27/2019 [facility] [place] Troponin-I (TnI) 0.01 ng/mL <0.03 7 finding Laboratory test 06/21/2019 [facility] Inr (Fma) 1.6 Low 2.0-3.0 finding [...] - Z#Comments - Laboratory test finding 06/14/2019 [facility] Inr (Fma) 1.7 Low 2.0- 3.0 (607)- - Laboratory test finding 06/04/2019 [facility] Inr (Fma) 1.9 Low 2.0- 3.0 (607)- - Laboratory test finding 05/28/2019 [facility] (Fma) 1.7 Low 2.0- 3.0 (607)- - Laboratory test finding 05/21/2019 [facility] Inr (Fma) 1.4 Low 2.0- 3.0 (607)- - 1 SEE RESULT BELOW Name: LESLIE MARIE: [address]: Nic Bolaños MD Acct: [id number] Unit: [id number] AGE: 84 Location: [facility] Re06/28/19 SEX: M Status: REG REF SPEC: [id number] IVAN: 06/28/19-[address]: Nic Bolaños MD REQ: [id number] RECD: 06/28/19 STATUS: COMP _ SOURCE: URINE SPDESC: ORDERED: Urine Culture COMMENTS: Katherine nicholson [id number] Urine Source: Random Procedure Result Reported Site Urine Culture Final 06/29/19- 1512 ML No Growth (<1,000 CFU/mL) * ML - Main Lab . END OF REPORT DEPARTMENT OF PATHOLOGY, [address] [place] [address] Babak Del Castillo M.D. Director [facility] # [id number] 2 Standard intensity warfarin therapeutic range: 2.0-3.0 High intensity warfarin therapeutic range: 2.5-3.5 3 Troponin-I testing on Plasma Separator Tubes (PST) has a known false positive rate of 0.20-0.40%. All positive troponins reflex immediately to secondary confirmatory testing. Using the [employer]lingo DxI 800 Access Immunoassay systems, the 99th [...] 5 Kidney failure <15 (or dialysis) 5 [facility] Severe Sepsis and Septic Shock Management Bundle Measure requires all lactic acids initially measuring >2.0 mmol/L be repeated. 6 Fire Claims Adjuster: [id number] 7 Troponin-I testing on Plasma Separator Tubes (PST) has a known false positive rate of 0.20-0.40%. All positive troponins reflex immediately to secondary confirmatory testing. Using the [employer] DxI 800 Access Immunoassay systems, the 99th percentile upper reference limit was demonstrated to be < 0.03 ng/mL. Procedures Date Code Description Status 07/12/2019 92283 Pulse Oximetry Completed 07/08/2019 51835 Inject/Drain Joint/Bursa Major Completed 07/05/2019 60441 Finger Or Heel Stick Completed 06/28/2019 82043 Pulse Oximetry Completed 06/21/2019 43451 Pulse Oximetry Completed 06/21/2019 59923 Finger Or Heel Stick Completed 06/14/2019 48533 Finger Or Heel Stick Completed 06/10/2019 57663 Pulse Oximetry Completed 06/04/2019 09468 Finger Or Heel Stick Completed 05/28/2019 81337 Finger Or Heel Stick Completed 05/21/2019 18214 Pulse Oximetry Completed 05/21/2019 97108 Finger Or Heel Stick Completed Medical Devices Description No Information Available Encounters Type Date Location Provider Dx Diagnosis Office Visit 06/28/2019 [facility] Office Nic Huff44.1 Chronic obstructive 8:40a MD Mami pulmonary disease w (acute) exacerbation R31.9 Hematuria, unspecified K62.5 Hemorrhage of anus and rectum K64.9 Unspecified hemorrhoids Office Visit 06/21/2019 1:00p [facility] Nic Lew M54.2 Cervicalgia MD Mami M25.511 Pain in right shoulder J44.1 Chronic obstructive pulmonary disease w (acute) exacerbation Z79.01 long term care social worker (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 I48.20 Chronic atrial fibrillation, unspecified Office Visit 06/14/2019 2:45p Main Office Makayla Waller R31.9 Hematuria, Cloud, ECHOMETER ENGINEER unspecified J44.9 Chronic obstructive pulmonary disease, unspecified R06.2 Wheezing Z79.01 long term care social worker (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 I48.11 Longstanding persistent atrial fibrillation Office Visit 06/10/2019 [facility] Office Nic Huff44.1 Chronic 11:30a MD Mami obstructive pulmonary disease w (acute) exacerbation Office Visit 05/31/2019 [facility] Nic Huff44.9 Chronic 4:30p Office MD Mami obstructive pulmonary disease, unspecified Z79.01 [facility] (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 I48.20 Chronic atrial [...] w (acute) exacerbation Office Visit 05/13/2019 3:20p [facility] Fiona Rodríguez J16.8 Pneumonia due to Flori Villaseñor other specified infectious organisms J44.9 Chronic obstructive pulmonary disease, unspecified E03.9 Hypothyroidism, unspecified I48.20 Chronic atrial fibrillation, unspecified I49.5 Sick sinus syndrome E11.21 Type 2 diabetes mellitus with diabetic nephropathy I27.20 Pulmonary hypertension, unspecified E78.5 Hyperlipidemia, unspecified R60.0 Localized edema Assessments Date Code Description Provider 07/12/2019 J44.1 Chronic obstructive pulmonary disease Makayla [...] 06/21/2019 M25.511 Pain in right shoulder Nic Bloaños MD 06/21/2019 J44.1 Chronic obstructive pulmonary disease Nic Bolaños MD with (acute) exacerbation 06/21/2019 Z79.01 [facility] (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 Nic Bolaños MD 06/21/2019 I48.20 Chronic atrial fibrillation, unspecified Nic Bolaños MD 06/14/2019 R31.9 Hematuria, unspecified Makayla Cloud, ECHOMETER ENGINEER 06/14/2019 J44.9 Chronic obstructive pulmonary disease, Makayla Cloud, ECHOMETER ENGINEER unspecified 06/14/2019 R06.2 Wheezing Makayla Cloud, MAYELA 06/14/2019 Z79.01 long term care social worker (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 Makayla Cloud NP 06/14/2019 I48.11 Longstanding persistent atrial Makayla Cloud NP fibrillation 06/10/2019 J44.1 Chronic obstructive pulmonary disease Nic Bolaños MD with (acute) exacerbation 06/04/2019 Z79.01 [facility] (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 Nic Bolaños MD 06/04/2019 I48.11 Longstanding persistent atrial Nic Bolaños MD fibrillation 05/31/2019 J44.9 Chronic obstructive pulmonary disease, Nic Bolaños MD unspecified 05/31/2019 Z79.01 long term care social worker (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 Nic Bolaños MD 05/31/2019 I48.20 Chronic atrial fibrillation, unspecified Nic Bolaños MD 05/31/2019 I49.5 Sick sinus syndrome Nic Bolaños MD 05/31/2019 I27.20 Pulmonary hypertension, unspecified Nic Bolaños MD 05/31/2019 J96.11 Chronic respiratory failure with hypoxia Nic Bolaños MD 05/28/2019 Z79.01 long term care social worker (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 Nic Bolaños MD 05/28/2019 I48.20 Chronic atrial fibrillation, unspecified Nic Bolaños MD 05/21/2019 J16.8 Pneumonia due to other specified Milagro Mendoza NP infectious organisms 05/21/2019 I48.20 Chronic atrial fibrillation, unspecified Milagro Mendoza NP 05/21/2019 Z79.01 long term care social worker (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 Milagro Mendoza NP [...] unspecified Fiona Villaseñor M.D. 05/13/2019 E78.5 Hyperlipidemia, jasvirified Fiona Villaseñor M.D. 05/13/2019 R60.0 Localized edema Fiona Villaseñor M.D. Plan of Treatment Future Appointment(s):11/23/2019 2:40 pm - Nic Vela M.D. at [facility] Nxcmym3507/26/2019 10:15 am - Nic Bolaños MD at [facility] Pircwu2809/2019 9:20 am - Nic Bolaños MD at [facility] Edwutx1407/12/2019 - Makayla Cloud, MAYELAJ44.1 Chronic obstructive pulmonary disease with (acute) exacerbationNew Medication:Advair Diskus 100-50 mcg/Dose - inhale 1 puff by mouth two times daily rinse mouth after useComments:continue nebulizer and inhaleradd on advair patient requesting a multi vitamin to help him fight offdiseaseFollow up:2 weeks INR 1 week if not improved condition, sooner for worsening ylffzlcutE38.9 Acute upper respiratory infection, unspecifiedComments: Call or return if you develop new fever, trouble breathing, sudden worsening, or pain in the ears, face, or chest . While the symptoms of upper respiratory infections are uncomfortable and can take a long time to go away, they rarely present significant danger. Use a humidifier at night and drink plenty of fluids during the day. Ibuprofen or tylenol are good for headaches and sore throats. Other cough and cold remedies, such as guaifenesin or phenylephrine, will not help you get better any faster. They can temporarily help with symptoms , but you should only continue to take them if you actually experience some relief within a couple hours of taking a dose. It is normal to cough for 2-3 weeks. You should be re-evaluated at the office if your cough persists longer or if you have a cough with fever,wheezing, or worsening pain.AllComments: Medication Management Patient Understands medications he 's taking? Yes No Are there Barriers to Adherence? Yes No Has the patient been asked about herbal supplements and therapies, andOTC meds? Yes No Care Plan1. Patient has been queried about patient's goals/preferences and functional/lifestyle goals at relevant visits. If relevant, describe: na2. Treatment goals as explained to the patient: above3. Are there barriers to meeting treatment goals? Yes No If Yes, please describe: polypharmacy, disease process, comorbid conditions 4. Self-Management goals as described to the patient: Yes NoAs always, we strongly encourage a healthy diet and making physical activity a part of your every day life. If you have questions about how or where to start, please contact the office. Functional Status Description No Information Available Mental Status Description No Information Available Referrals Refer to Reason for Referral Status Appt Date Derrick Wang Hematuria jw Sent [address] [place], [place] [id number] [phone] Gris Price COPD jw Sent [address] [place]. [address] [phone] José Luis Vines MD-michele jw Scheduled 06/11/2019 [address] [facility] [address] [place] [address] [phone] [facility] overnight O2 test. Order faxed. LT Sent [address] [place] [address] [phone]
--- OUTSIDE RECORDS SUMMARY | 2019-09-04 21:41 | XMS REPORT | Continuity of Care Document ---
:1935 External Reference #:[id number] Author Name Mile Dumont N.P. (transmitted by agent of provider Mara Cline) Address [address] [place] [address] Care Team Providers Name Role Phone Nic Bolaños MD - Family Care Team Information Jd Edwards [phone] Medicine Problems Description No Information Available Social History Type Date Description Comments Sex Unknown ETOH Use Occasionally consumes beer 6 beers /month Tobacco Use Start: Unknown End: Patient is a former smoker Recreational Drug Use Denies Drug Use Smoking Status Reviewed: 07/26/19 Patient is a former smoker Enjoy Exercising Enjoys exercising Allergies, Adverse Reactions, Alerts Active Allergies Reaction Severity Comments Date Percocet hematuria 06/11/2019 Medications Active Medications SIG Qnty Indications Ordering Date Provider Simvastatin 1 by mouth at 180tabs José Luis Otero 06/11/2019 10mg Tablets bedtime Flori Vinse Finasteride 1 tab by mouth Unknown 06/10/2019 5mg Tablets daily Warfarin Sodium Take as directed Unknown 06/10/2019 7.5mg Tablets Metformin HCL 1 by mouth twice Unknown 06/10/2019 500mg a day Tablets Gabapentin two tabs by Unknown 06/10/2019 300mg Capsules mouth at night Furosemide 1 by mouth every Unknown 20mg Tablets odd day. Levothyroxine Sodium 1 by mouth every Unknown day 137mcg Tablets Montelukast Sodium 1 by mouth every Unknown 10mg day Tablets Eplerenone tab by mouth Unknown 25mg Tablets every day Digoxin 0.25MG One tab by mouth Unknown daily Ropinirole HCL take one tablet Unknown 1mg by mouth at Tablets bedtime History Medications Primidone 1 tablet at bedtime Unknown 06/10/2019 - 07/25/2019 50mg Tablets Immunizations Description No Information Available Vital Signs Date Vital Result Comment 07/26/2019 2:04pm Height 72 inches 6'0" Weight 174.12 lb with shoes Heart Rate 60 /min Right radial BP Systolic Sitting 122 mmHg Ule regular cuff BP Diastolic Sitting 58 mmHg Ule regular cuff BP Systolic Standing 120 mmHg Ule regular cuff BP Diastolic Standing 58 mmHg Ule regular cuff BMI (Body Mass Index) 23.6 kg/m2 Ejection Fraction EF 55-60% echo 05/25/2019 06/11/2019 3:20pm Height 72 inches 6'0" Weight [...] Result H/L Range Note Laboratory test 06/07/2019 [facility] Troponin- 0.04 ng/mL Critical high <0.03 [address] I (TnI) [place] [address] [phone] 1 Result TnIDx:0.04 Called to [id number] at: 13:54:35 by:[email or web address] Read back by: [id number] Troponin-I testing on Plasma Separator Tubes (PST) has a known false positive rate of 0.20-0.40%. All positive troponins reflex immediately to secondary confirmatory testing. Using the [employer] 800 Access Immunoassay systems, the 99th percentile upper reference limit was demonstrated to be < 0.03 ng/mL. Procedures Date Code Description Status 06/11/2019 03086 EKG Tracing & Interpretation Completed 06/08/2019 95076 Treadmill Interp/Report Only Completed 06/08/2019 67169 Stress Test Supervsn W/Out I/R Completed 05/25/2019 52744 ECHO Transthorasic Realtime 2D W Doppler & Color Flow Hosp Completed Medical Devices Description No Information Available Encounters Type Date Location Provider Dx Diagnosis Office Visit 06/11/2019 [facility] José Luis Huff44.1 Chronic obstructive 3:00p Flori Vines pulmonary disease w (acute) exacerbation R31.9 Hematuria, unspecified I48.91 Unspecified atrial fibrillation E78.5 Hyperlipidemia, unspecified E11.9 Type 2 diabetes mellitus without complications E03.9 Hypothyroidism, unspecified I35.0 Nonrheumatic aortic (valve) stenosis I10 Essential (primary) hypertension R01.1 Cardiac murmur, unspecified Z95.0 Presence of cardiac pacemaker Office Visit 06/08/2019 9:16a [facility] Angelic Kirti, J44.1 Chronic Assoc,pc [employer] obstructive Hospitalists pulmonary disease w (acute) exacerbation E03.9 Hypothyroidism, unspecified I48.91 Unspecified atrial fibrillation I10 Essential (primary) hypertension E11.9 Type 2 diabetes mellitus without complications N40.0 Benign prostatic hyperplasia without lower urinry tract symp E78.5 Hyperlipidemia, unspecified Office Visit 06/07/2019 [facility] Stefany R07.9 Chest pain, 9:16a Assoc,pc MAYELA Ramos unspecified Hospitalists J44.9 Chronic obstructive pulmonary disease, unspecified I10 Essential (primary) hypertension E11.9 Type 2 diabetes mellitus without complications E78.5 Hyperlipidemia, unspecified I48.91 Unspecified atrial fibrillation N40.0 Benign prostatic hyperplasia without lower urinry tract symp R25.1 Tremor, unspecified E03.9 Hypothyroidism, unspecified Office Visit 05/25/2019 10:36a [facility] Angelic Kirti, J44.1 Chronic Assoc,pc [employer] obstructive Hospitalists pulmonary disease w (acute) exacerbation R31.9 Hematuria, unspecified I48.91 Unspecified atrial fibrillation E78.5 Hyperlipidemia, unspecified E11.9 Type 2 diabetes mellitus without complications E03.9 Hypothyroidism, unspecified N40.0 Benign prostatic hyperplasia without lower urinry tract symp I73.9 Peripheral vascular disease, unspecified Office Visit 05/24/2019 10:36a [facility] Angelic Kirti, J44.1 Chronic Assoc,pc [employer] obstructive Hospitalists pulmonary disease w (acute) exacerbation R31.9 Hematuria, unspecified R60.0 Localized edema I48.91 Unspecified atrial fibrillation E11.9 Type 2 diabetes mellitus without complications E03.9 Hypothyroidism, unspecified N40.0 Benign prostatic hyperplasia without lower urinry tract symp Assessments Date Code Description Provider 07/26/2019 E78.5 Hyperlipidemia, unspecified Mile S. Foster, N.P. 07/26/2019 I48.91 Unspecified atrial fibrillation Mile S. Foster, N.P. 07/26/2019 J44.1 Chronic obstructive pulmonary Mile S. Foster, N.P. disease with (acute) exacerbation 07/26/2019 I35.0 Aortic valve stenosis Mile S. Foster, N.P. 07/26/2019 I10 Benign hypertension Mile S. Foster, N.P. 06/11/2019 J44.1 Chronic obstructive pulmonary José Luis Vines M.D. disease with (acute) exacerbation 06/11/2019 R31.9 Hematuria, unspecified José Luis Vines M.D. 06/11/2019 I48.91 Unspecified atrial fibrillation José Luis Vines M.D. 06/11/2019 E78.5 Hyperlipidemia, unspecified José Luis Vines M.D. 06/11/2019 E11.9 Type 2 diabetes mellitus without José Luis Vines M.D. complications 06/11/2019 E03.9 Hypothyroidism, damir Vines M.D. 06/11/2019 I35.0 Aortic valve stenosis José Luis Vines M.D. 06/11/2019 I10 Benign hypertension José Luis Vines M.D. 06/11/2019 R01.1 Cardiac murmur, jasvirified José Luis Vines M.D. 06/11/2019 Z95.0 Presence of cardiac pacemaker José Luis Vines M.D. 06/08/2019 R07.9 Chest pain, unspecified Liza Rodriguez MD, [facility] 06/08/2019 J44.1 Chronic obstructive pulmonary Angelic Kirti, [employer] disease with (acute) exacerbation 06/08/2019 E03.9 Hypothyroidism, unspecified Angelic Kirti, [employer] 06/08/2019 I48.91 Unspecified atrial fibrillation Angelic Kirti, [employer] 06/08/2019 I10 Essential (primary) hypertension Angelic Kirti, [employer] 06/08/2019 E11.9 Type 2 diabetes mellitus without Angelic Kirti, [employer] complications 06/08/2019 N40.0 Benign prostatic hyperplasia without Angelic Kirti, [employer] lower urinary tract symptoms 06/08/2019 E78.5 Hyperlipidemia, unspecified Angelic Kirti, [employer] 06/07/2019 R07.9 Chest pain, unspecified Stefany [place], [employer] 06/07/2019 J44.9 Chronic obstructive pulmonary Stefany Rachel, [employer] disease, unspecified 06/07/2019 I10 Benign hypertension Stefany [place], [employer] 06/07/2019 E11.9 Type 2 diabetes mellitus without Stefany [place], [employer] complications 06/07/2019 E78.5 Hyperlipidemia, unspecified Stefany Rachel, [employer] 06/07/2019 I48.91 Unspecified atrial fibrillation Stefany [place], [employer] 06/07/2019 N40.0 Benign prostatic hyperplasia without Stefany [place], [employer] lower urinary tract symptoms 06/07/2019 R25.1 Tremor, unspecified Stefany [place], [employer] 06/07/2019 E03.9 Hypothyroidism, unspecified Stefany [place], [employer] 05/25/2019 R60.9 Edema, unspecified José Luis Vines M.D. 05/25/2019 J44.1 Chronic obstructive pulmonary Angelic Kirti, [employer] disease with (acute) exacerbation 05/25/2019 R31.9 Hematuria, unspecified Angelic Kirti, [employer] 05/25/2019 I48.91 Unspecified atrial fibrillation Angelic Kirti, [employer] 05/25/2019 E78.5 Hyperlipidemia, unspecified Angelic Kirti, [employer] 05/25/2019 E11.9 Type 2 diabetes mellitus without Angelic Kirti, [employer] complications 05/25/2019 E03.9 Hypothyroidism, unspecified Angelic Kirti, [employer] 05/25/2019 N40.0 Benign prostatic hyperplasia without Angelic Kirti, [employer] lower urinary tract symptoms 05/25/2019 I73.9 Peripheral vascular disease, Angelic Kirti, [employer]ER unspecified 05/24/2019 J44.1 Chronic obstructive pulmonary Angelic Kirti, [employer] disease with (acute) exacerbation 05/24/2019 R31.9 Hematuria, unspecified Angelic Kirti, [employer]ER 05/24/2019 R60.0 Localized edema Angelic Kirti, [employer]ER 05/24/2019 I48.91 Unspecified atrial fibrillation Angelic Kirti, [employer] 05/24/2019 E11.9 Type 2 diabetes mellitus without Angelic Kirti, [employer] complications 05/24/2019 E03.9 Hypothyroidism, unspecified Angelic Kirti, [employer] 05/24/2019 N40.0 Benign prostatic hyperplasia without Angelic Kirti, [employer] lower urinary tract symptoms Plan of Treatment Future Appointment(s):08/05/2019 11:00 am - Yudith Pacer Schedule at [facility]11/03/2019 11:00 am - José Luis Vines M.D. at [facility]07/26/2019 - Mile Dumont NGiaPGiaE78.5 Hyperlipidemia, dzwyxrpzoxjB09.91 Unspecified atrial fibrillationRecommendations:Rate controlled Continue digoxin.J44.1 Chronic obstructive pulmonary disease with ( acute) ozbyoehetaltH48.0 Aortic valve tfesmodeQ76 Benign hypertensionFollow up: Please reprint labs from 06/2019 arrange PO check at replaced by [facility] 11/2019 please schedule U/S ofaorta (ordered previously)Recommendations:BP low normal decrease Furosemide to 1 tab every other day Functional Status Description No Information Available Mental Status Description No Information Available Referrals Description No Information Available
--- OUTSIDE RECORDS SUMMARY | 2019-09-04 21:41 | XMS REPORT | Continuity of Care Document ---
:1935 External Reference #:[id number] Author Name Ica Pacer Schedule (transmitted by agent of provider Cary Manriquez) Address [address] [place] [address] Care Team Providers Name Role Phone Nic Bolaños MD - Family Care Team Information Balling Machine Operator [phone] Medicine Nic Bolaños MD - Family Care Team Information Balling Machine Operator [phone] Medicine Problems Description No Information Available Social History Type Date Description Comments Sex Unknown Tobacco Use Start: Unknown Former Cigarette Smoker 20 or 30 years End: 1-5 Cigarettes Daily Smoking Status Reviewed: 07/27/19 Former Cigarette Smoker 20 or 30 years 1-5 Cigarettes Daily ETOH Use Occasionally consumes 6 beers /month beer Tobacco Use Start: Unknown Patient is a former End: smoker Recreational Drug Use Denies Drug Use Enjoy Exercising Enjoys exercising Exercise Type/Frequency 07/27/2019 Exercises regularly Usually on feet all day long. Currently limited by breathing Allergies, Adverse Reactions, Alerts Active Allergies Reaction Severity Comments Date Percocet hematuria 06/11/2019 Prednisone Bleeding kidneys 07/27/2019 Medications Active Medications SIG Qnty Indications Ordering Date Provider Fluticasone Shake Liquid And 48units Russell Wagner, 08/04/2019 Propionate Use 1 [place] In MD 50mcg/Act Each Nostril Suspension Twice Daily Advair Diskus 1 by mouth twice 60units R06.00 Russell Wagner, 07/27/2019 a day MD 500-50mcg/Dose Aerosol Flonase Allergy 1 puff nasal 36.400ml R06.00 Russell Wagner, 07/27/2019 Relief twice a day MD 50mcg/Act Suspension Mucinex 1 tab by mouth 30tabs R06.00 Russell Wagner, 07/27/2019 600mg Tablets twice a day MD JARA 12HR Simvastatin 1 by mouth at 180tabs José Luis Otero 06/11/2019 10mg bedtime Flori Vines Tablets Gabapentin two tabs by mouth Unknown 06/10/2019 300mg at night Capsules Metformin HCL 1 by mouth twice Unknown 06/10/2019 500mg a day Tablets Warfarin Sodium Or 5 mg. Take as Unknown 06/10/2019 7.5mg directed Tablets Finasteride 1 tab by mouth Unknown 06/10/2019 5mg Tablets daily Furosemide 1 by mouth every Unknown 20mg Tablets other day Levothyroxine Sodium 1 by mouth every Unknown day 137mcg Tablets Eplerenone tab by mouth Unknown 25mg Tablets every day Digoxin 0.25MG One tab by mouth Unknown daily Ropinirole HCL take one tablet Unknown 1mg by mouth at Tablets bedtime Ipratropium U 1 Inhalation Unknown [place]/Albuterol Via Neb Q 4 H prn Sulfate 0.5-2.5(3)mg/3ML Solution Wixela Inhub Inl 1 puff PO Unknown Twice Daily. RM 100-50mcg/Dose After U Aerosol History Medications Primidone 1 tablet at bedtime Unknown 06/10/2019 - 07/25/2019 50mg Tablets Immunizations Description No Information Available Vital Signs Date Vital Result Comment 07/27/2019 9:09am Height 72 inches 6'0" Weight 169.00 lb Heart Rate 68 /min BP Systolic Sitting 126 mmHg Lue reg cuff BP Diastolic Sitting 64 mmHg Lue reg cuff O2 % BldC Oximetry 91 % On Ra BMI (Body Mass Index) 22.9 kg/m2 07/26/2019 2:04pm Height 72 inches 6'0" Weight 174.12 lb with shoes Heart Rate 60 /min Right radial BP Systolic Sitting 122 mmHg Ule regular cuff BP Diastolic Sitting 58 mmHg Ule regular cuff BP Systolic Standing 120 mmHg Ule regular cuff BP Diastolic Standing 58 mmHg Ule regular cuff BMI (Body Mass Index) 23.6 kg/m2 Ejection Fraction EF 55-60% echo 05/25/2019 Results Test Acquired Date Facility Test Result H/L Range Note Laboratory test 06/07/2019 [facility] Troponin- 0.04 ng/mL Critical high <0.03 [address] I (TnI) [place] [address] [phone] 1 Result TnIDx:0.04 Called to [id number] at: 13:54:35 by:[id number] Read back by: [id number] Troponin-I testing on Plasma Separator Tubes (PST) has a known false positive rate of 0.20-0.40%. All positive troponins reflex immediately to secondary confirmatory testing. Using the [employer] Access Immunoassay systems, the 99th percentile upper reference limit was demonstrated to be < 0.03 ng/mL. Procedures Date Code Description Status 08/05/2019 80127 Pace Maker Eval W/Iterative Adjustment Single Lead Completed 08/05/2019 57146 Pace Maker Eval W/Iterative Adjustment Single Lead Completed 06/11/2019 19655 EKG Tracing & Interpretation Completed 06/08/2019 88241 Treadmill Interp/Report Only Completed 06/08/2019 22593 Stress Test Supervsn W/Out I/R Completed 05/25/2019 79282 ECHO Transthorasic Realtime 2D W Doppler & Color Flow Hosp Completed Medical Devices Description No Information Available Encounters Type Date Location Provider Dx Diagnosis Office Visit 07/27/2019 [facility] And Russell Wagner MD R06.00 Dyspnea, 9:15a [facility]ing Watchman Z87.891 Personal history of nicotine dependence Office Visit 07/26/2019 [place] Mile AndreGia E78.5 Hyperlipidemia, 2:30p Cardiology Tim, N.P. unspecified I48.91 Unspecified atrial fibrillation J44.1 Chronic obstructive pulmonary disease w (acute) exacerbation I35.0 Nonrheumatic aortic (valve) stenosis I10 Essential (primary) hypertension Office Visit 06/11/2019 3:00p [facility] José Luis Huff44.1 Almas Vines M.D. obstructive pulmonary disease w (acute) exacerbation R31.9 Hematuria, unspecified I48.91 Unspecified atrial fibrillation E78.5 Hyperlipidemia, unspecified E11.9 Type 2 diabetes mellitus without complications E03.9 Hypothyroidism, unspecified I35.0 Nonrheumatic aortic (valve) stenosis I10 Essential (primary) hypertension R01.1 Cardiac murmur, unspecified Z95.0 Presence of cardiac pacemaker Office Visit 06/08/2019 9:16a [facility] Angelic Kirti, J44.1 Chronic Assoc,pc ANESTHESIA ASSISTANT obstructive Hospitalists pulmonary disease w (acute) exacerbation E03.9 Hypothyroidism, unspecified I48.91 Unspecified atrial fibrillation I10 Essential (primary) hypertension E11.9 Type 2 diabetes mellitus without complications N40.0 Benign prostatic hyperplasia without lower urinry tract symp E78.5 Hyperlipidemia, unspecified Office Visit 06/07/2019 [facility] R07.9 Chest pain, 9:16a Assoc,pc MAYELA Ramos unspecified Hospitalists J44.9 Chronic obstructive pulmonary disease, unspecified I10 Essential (primary) hypertension E11.9 Type 2 diabetes mellitus without complications E78.5 Hyperlipidemia, unspecified I48.91 Unspecified atrial fibrillation N40.0 Benign prostatic hyperplasia without lower urinry tract symp R25.1 Tremor, unspecified E03.9 Hypothyroidism, unspecified Office Visit 05/25/2019 10:36a [facility] Angelic Kirti, J44.1 Chronic Assoc,pc ANESTHESIA ASSISTANT obstructive Hospitalists pulmonary disease w (acute) exacerbation R31.9 Hematuria, unspecified I48.91 Unspecified atrial fibrillation E78.5 Hyperlipidemia, unspecified E11.9 Type 2 diabetes mellitus without complications E03.9 Hypothyroidism, unspecified N40.0 Benign prostatic hyperplasia without lower urinry tract symp I73.9 Peripheral vascular disease, unspecified Office Visit 05/24/2019 10:36a [facility] Angelic Kirti, J44.1 Chronic Assoc,pc ANESTHESIA ASSISTANT obstructive Hospitalists pulmonary disease w (acute) exacerbation R31.9 Hematuria, unspecified R60.0 Localized edema I48.91 Unspecified atrial fibrillation E11.9 Type 2 diabetes mellitus without complications E03.9 Hypothyroidism, unspecified N40.0 Benign prostatic hyperplasia without lower urinry tract symp Assessments Date Code Description Provider 08/05/2019 Z95.0 Presence of cardiac pacemaker José Luis Vines M.D. 08/05/2019 Z95.0 Presence of cardiac pacemaker Ica Pacer Schedule 08/05/2019 R07.9 Chest pain, unspecified José Luis Vines M.D. 08/05/2019 R07.9 Chest pain, unspecified Ica Pacer Schedule 07/27/2019 R06.00 Dyspnea, unspecified Russell Wagner MD 07/27/2019 Z87.891 Personal history of nicotine Russlel Wagner MD dependence 07/26/2019 E78.5 Hyperlipidemia, unspecified Mile S. Tim, N.P. 07/26/2019 I48.91 Unspecified atrial fibrillation Mile S. Tim, N.P. 07/26/2019 J44.1 Chronic obstructive pulmonary Mile [...] José Luis Vines M.D. 06/11/2019 E78.5 Hyperlipidemia, damir Vines M.D. 06/11/2019 E11.9 Type 2 diabetes [...] R07.9 Chest pain, unspecified Liza Rodriguez MD, [facility] 06/08/2019 J44.1 Chronic obstructive pulmonary Angelic Kirti, ANESTHESIA ASSISTANT disease with (acute) exacerbation 06/08/2019 E03.9 Hypothyroidism, unspecified Angelic Kirti, ANESTHESIA ASSISTANT 06/08/2019 I48.91 Unspecified atrial fibrillation Angelic Kirti, ANESTHESIA ASSISTANT 06/08/2019 I10 Essential (primary) hypertension Angelic Kirti, ANESTHESIA ASSISTANT 06/08/2019 E11.9 Type 2 diabetes mellitus without Angelic Kirti, ANESTHESIA ASSISTANT complications 06/08/2019 N40.0 Benign prostatic hyperplasia without Angelic Kirti, ANESTHESIA ASSISTANT lower urinary tract symptoms 06/08/2019 E78.5 Hyperlipidemia, unspecified Angelic Kirti, ANESTHESIA ASSISTANT 06/07/2019 R07.9 Chest pain, unspecified Stefany [place], ANESTHESIA ASSISTANT 06/07/2019 J44.9 Chronic obstructive pulmonary Stefany [place], ANESTHESIA ASSISTANT disease, unspecified 06/07/2019 I10 Benign hypertension Stefany [place], ANESTHESIA ASSISTANT 06/07/2019 E11.9 Type 2 diabetes mellitus without Stefany Rachel, ANESTHESIA ASSISTANT complications 06/07/2019 E78.5 Hyperlipidemia, unspecified Stefany Rachel, ANESTHESIA ASSISTANT 06/07/2019 I48.91 Unspecified atrial fibrillation Stefany [place], ANESTHESIA ASSISTANT 06/07/2019 N40.0 Benign prostatic hyperplasia without Stefany Rachel, ANESTHESIA ASSISTANT lower urinary tract symptoms 06/07/2019 R25.1 Tremor, unspecified Stefany [place], ANESTHESIA ASSISTANT 06/07/2019 E03.9 Hypothyroidism, unspecified Stefany Rachel, ANESTHESIA ASSISTANT 05/25/2019 R60.9 Edema, unspecified José Luis Vines M.D. 05/25/2019 J44.1 Chronic obstructive pulmonary Angelic Kirti, ANESTHESIA ASSISTANT disease with (acute) exacerbation 05/25/2019 R31.9 Hematuria, unspecified Angelic Kirti, ANESTHESIA ASSISTANT 05/25/2019 I48.91 Unspecified atrial fibrillation Angelic Kirti, ANESTHESIA ASSISTANT 05/25/2019 E78.5 Hyperlipidemia, unspecified Angelic Kirti, ANESTHESIA ASSISTANT 05/25/2019 E11.9 Type 2 diabetes mellitus without Angelic Kirti, ANESTHESIA ASSISTANT complications 05/25/2019 E03.9 Hypothyroidism, unspecified Angelic Kirti, ANESTHESIA ASSISTANT 05/25/2019 N40.0 Benign prostatic hyperplasia without Angelic Kirti, ANESTHESIA ASSISTANT lower urinary tract symptoms 05/25/2019 I73.9 Peripheral vascular disease, Angelic Kirti, ANESTHESIA ASSISTANT unspecified 05/24/2019 J44.1 Chronic obstructive pulmonary Angelic Kirti, ANESTHESIA ASSISTANT disease with (acute) exacerbation 05/24/2019 R31.9 Hematuria, unspecified Angelic Kirti, ANESTHESIA ASSISTANT 05/24/2019 R60.0 Localized edema Angelic Kirti, ANESTHESIA ASSISTANT 05/24/2019 I48.91 Unspecified atrial fibrillation Angelic Kirti, ANESTHESIA ASSISTANT 05/24/2019 E11.9 Type 2 diabetes mellitus without Angelic Kirti, ANESTHESIA ASSISTANT complications 05/24/2019 E03.9 Hypothyroidism, unspecified Angelic Kirti, ANESTHESIA ASSISTANT 05/24/2019 N40.0 Benign prostatic hyperplasia without Angelic Kirti, ANESTHESIA ASSISTANT lower urinary tract symptoms Plan of Treatment Future Appointment(s):11/03/2019 11:00 am - José Luis Vines M.D. at [facility]07/27/2019 - Russell Wagner, MDR06.00 Dyspnea, unspecifiedNew Medication :Advair Diskus 500-50 mcg/Dose - 1 by mouth twice a dayFlonase Allergy Relief 50 mcg/Act - 1 puff nasal twice a dayMucinex 600 mg - 1 tab by mouth twice a dayNew Orders:PFTW/Spirometry Vol Pre/Post Bronchdilat Dlco Complete, Scheduled : 08/24/19Comments:He will need to be on inhaled steroids, Mucinex and sinus steroids. He should see allergy as dirt could be contributing to his problems. He will need full pfts. I have also instructed him that he needsto see a Urologist as he is having hematuria on occasion.Referral:Denzel Lynch MD , Allergy & ImmunologyFollow up:1-2 months.Z87.891 Personal history of nicotine dependence Functional Status Description No Information Available Mental Status Description No Information Available Referrals Refer to Reason for Referral Status Appt Date Denzel Lynch MD Sent [phone] [facility] [address] [place] [address] [phone]
--- OUTSIDE RECORDS SUMMARY | 2019-09-04 21:41 | XMS REPORT | Continuity of Care Document ---
:1935 External Reference #:[id number] Author Name Nic Bolaños MD Address [address] [place] [address] Care Team Providers Name Role Phone Nic Bolaños MD - Family Care Team Information [employer] [phone] Medicine [facility] - [employer] [employer] Supplies Care Team Information [employer] Developer Problems Active Problems Provider Date Type 2 [...] Ordering Date Provider Medrol as directed 1units J44.1 Nic Lew 06/28/2019 4mg TBPK MD Mami Medrol as directed 1units Nic Lew 06/21/2019 4mg TBPK MD Mami Tramadol HCL 1 by mouth every 28tabs Nic Lew 06/21/2019 50mg 6 hours as needed MD Mami Tablets Ipratropium Use 1 Inhalation 270units Nic Lew 05/31/2019 [place]/Albuterol Via Nebulizer MD Mami Sulfate Every 4 Hours as Needed 0.5-2.5(3)mg/3ML Solution Oxygen 2 liters nasal Z79.01 Fiona McgrathGia 05/13/2019 cannula at night Flori Villaseñor Simvastatin 1 by mouth every Unknown 10mg day Tablets Montelukast Sodium 1 by mouth every Unknown 10mg day Tablets Digoxin 1 by mouth every 90tabs Nic Morgan. 125mcg Tablets day MD Mami Levothyroxine Sodium [...] mouth every day Unknown Tablets History Medications Azithromycin 2 tabs today, 6tabs Nic Lew 06/21/2019 - 250mg then 1 tab daily MD Mami 07/08/2019 Tablets for next 4 days Medrol as directed 1units Nic Lew 06/10/2019 - 4mg TBPK MD Mami 06/10/2019 Prednisone take 5 by mouth 30tabs J44.1 Milagro Mendoza, 05/21/2019 - 10mg daily for 2 [employer] 05/31/2019 Tablets days, then 4 for 2 days, then 3 for 2 days, then 2 for 2 days, then 1 daily until gone Immunizations Description No Information Available Vital Signs Date Vital Result Comment 07/08/2019 11:17am BP Systolic 118 mmHg BP Diastolic 70 mmHg Heart Rate 72 /min Body Temperature 98.1 F Respiratory Rate 15 /min O2 % BldC Oximetry 98 % Ra Weight 172.00 lb 06/28/2019 8:27am BP Systolic 122 mmHg BP Diastolic 66 mmHg Heart Rate 88 /min Body Temperature 97.3 F Respiratory Rate 20 /min O2 % BldC Oximetry 93 % Ra Weight 174.00 lb Results Test Acquired Date Facility Test Result H/L Range Note Laboratory test 07/05/2019 [facility] In[facility] (a) 2.3 2-3 finding (607)- - Laboratory test 06/28/2019 [facility] [place]) PSA 0.6 ng/mL 0.0-4.0 finding Ua - Micro (a) 06/28/2019 [facility] Appearance cloudy (607)- - Color brown Glucose, Urine (a/CMC/CTX) 1000 mg/dL High known diabetic Bilirubin neg Ketones neg SP Grav 1.020 Blood large PH 5.5 Protein ssa 1+ Urobil 0.2 Nitrite neg Leukocytes (a/CMC/Centrex) neg Hyaline - /Lpf Granular - /Lpf WBC (a,Centrex) 3-5 RBC >100 Mucus (a/CBC/Centrex) - /Lpf Epith - /Lpf Bacteria trace /Hpf Amorphous (a/CMC/Centrex) - /Lpf Crystals, Fluid (a/CMC/CTX) - Z#Comments - Laboratory test 06/28/2019 [facility] Inr (a) 3.6 High 2.0-3.0 finding (607)- - Urine Culture And 06/28/2019 [facility] [place] SEE RESULT 1 Sensitivities BELOW Laboratory test 06/27/2019 [facility] [place] B-Type 95 pg/mL <=100 finding Natriuretic Peptide BNP Inr/Protime 06/27/2019 [facility] [place] Inr 4.61 High 0.82-1.09 2 Laboratory test 06/27/2019 [facility] [place] Troponin-I 0.02 ng/mL <0.03 3 finding (TnI) Comp Metabolic 06/27/2019 [facility] [place] Sodium 138 mmol/L Normal 135-145 Panel Potassium [...] Egfr 116.2 >60 4 Laboratory test 06/27/2019 [facility] [place] Lactic Acid 1.5 mmol/L Normal 0.5-2.0 5 finding CBC Auto Diff 06/27/2019 [facility] [place] White Blood Count 5.3 10^3/uL Normal 3.5- [...] Blood Cells % 0.0 Laboratory test 06/27/2019 [facility] [place] Point of Care 94 mg/dL Normal 70-100 6 finding Glucose Laboratory test 06/27/2019 [facility] [place] Troponin-I (TnI) 0.01 ng/mL <0.03 7 finding [...] (607)- - 1 SEE RESULT BELOW Name: ROBBIE HOOD : [address]: Nic Bolaños MD Acct: [id number] Unit: [id number] AGE: 84 Location: [facility] Re06/28/19 SEX: M Status: REG REF SPEC: [id number] IVAN: 06/28/19-[address] [facility] [address]: Nic Bolaños MD REQ: [id number] RECD: 06/28/19 STATUS: COMP _ SOURCE: URINE SPDESC: ORDERED: Urine Culture COMMENTS: 1 lyn [id number] Urine Source: Random Procedure Result Reported Site Urine Culture Final 06/29/19- 1512 ML No Growth (<1,000 CFU/mL) * ML - Main Lab . END OF REPORT DEPARTMENT OF PATHOLOGY, [address] [place] [address] Babak Del Castillo M.D. Director [facility] # [id number] 2 Standard intensity warfarin therapeutic range: 2.0-3.0 High intensity warfarin therapeutic range: 2.5-3.5 3 Troponin-I testing on Plasma Separator Tubes (PST) has a known false positive rate of 0.20-0.40%. All positive troponins reflex immediately to secondary confirmatory testing. Using the [employer] DxI 800 Access Immunoassay systems, the 99th [...] 5 Kidney failure <15 (or dialysis) 5 [facility] Severe Sepsis and Septic Shock Management Bundle Measure requires all lactic acids initially measuring >2.0 mmol/L be repeated. 6 Checker Product Design: [id number] 7 Troponin-I testing on Plasma Separator Tubes (PST) has a known false positive rate of 0.20-0.40%. All positive troponins reflex immediately to secondary confirmatory testing. Using the [employer] DxI 800 Access Immunoassay systems, the 99th percentile upper reference limit was demonstrated to be < 0.03 ng/mL. Procedures Date Code Description Status 07/08/2019 32901 Inject/Drain Joint/Bursa Major Completed 07/05/2019 42233 Finger Or Heel Stick Completed 06/28/2019 23973 Pulse Oximetry Completed 06/21/2019 09572 Pulse Oximetry Completed 06/21/2019 44631 Finger Or Heel Stick Completed 06/14/2019 68335 Finger Or Heel Stick Completed 06/10/2019 63942 Pulse Oximetry Completed 06/04/2019 77805 Finger Or Heel Stick Completed 05/28/2019 33661 Finger Or Heel Stick Completed 05/21/2019 46937 Pulse Oximetry Completed 05/21/2019 34884 Finger Or Heel Stick Completed Medical Devices Description No Information Available Encounters Type Date Location Provider Dx Diagnosis Office Visit 06/28/2019 [facility] Office Nic Lew J44.1 Chronic obstructive 8:40a MD Mami pulmonary disease w (acute) exacerbation R31.9 Hematuria, unspecified K62.5 Hemorrhage of anus and rectum K64.9 Unspecified hemorrhoids Office Visit 06/21/2019 1:00p [facility] Nic Lew M54.2 Cervicalgia MD Mami M25.511 Pain in right shoulder J44.1 Chronic obstructive pulmonary disease w (acute) exacerbation Z79.01 intermission coordinator (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 I48.20 Chronic atrial fibrillation, unspecified Office Visit 06/14/2019 2:45p Main Office Makayla Waller R31.9 Hematuria, Cloud, [employer] unspecified J44.9 Chronic obstructive pulmonary disease, unspecified R06.2 Wheezing Z79.01 intermission coordinator (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 I48.11 Longstanding persistent atrial fibrillation Office Visit 06/10/2019 [facility] Office Nic Lew J44.1 Chronic 11:30a MD Mami obstructive pulmonary disease w (acute) exacerbation Office Visit 05/31/2019 [facility] Nic Lew J44.9 Chronic 4:30p Office MD Mami obstructive pulmonary disease, unspecified Z79.01 intermission coordinator (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 I48.20 Chronic atrial fibrillation, unspecified I49.5 Sick sinus syndrome I27.20 Pulmonary hypertension, unspecified J96.11 Chronic respiratory failure with hypoxia Office Visit 05/21/2019 10:15a [facility] Office Milagro Huff16.8 Pneumonia due to MAYELA Mendoza other specified infectious organisms I48.20 Chronic atrial fibrillation, unspecified Z79.01 custodial (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 J44.1 Chronic obstructive pulmonary disease w (acute) exacerbation Office Visit 05/13/2019 3:20p [facility] Office Fiona Huff16.8 Pneumonia due to Flori Villaseñor other specified infectious organisms J44.9 Chronic obstructive pulmonary disease, unspecified E03.9 Hypothyroidism, unspecified I48.20 Chronic atrial fibrillation, unspecified I49.5 Sick sinus syndrome E11.21 Type 2 diabetes mellitus with diabetic nephropathy I27.20 Pulmonary hypertension, unspecified E78.5 Hyperlipidemia, unspecified R60.0 Localized edema Assessments Date Code Description Provider 07/08/2019 M75.01 Adhesive capsulitis of right shoulder Nic Bolaños MD 07/08/2019 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 Nic Bolaños MD 07/08/2019 J44.1 Chronic obstructive pulmonary disease Nic Bolaños MD with (acute) exacerbation 07/05/2019 Z79.01 intermission coordinator (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 Nic Bolaños MD 07/05/2019 I48.11 Longstanding persistent atrial Nic Bolaños MD fibrillation 06/28/2019 J44.1 Chronic obstructive pulmonary disease Nic Bolaños MD with (acute) exacerbation 06/28/2019 R31.9 Hematuria, unspecified Nic Bolaños MD 06/28/2019 R31.9 Hematuria, unspecified Nic Bolaños MD 06/28/2019 K62.5 Hemorrhage of anus and rectum Nic Bolaños MD 06/28/2019 K64.9 Unspecified hemorrhoids Nic Bolaños MD 06/28/2019 Z79.01 intermission coordinator (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 Nic Bolaños MD 06/28/2019 I48.11 Longstanding persistent atrial Nic Bolaños MD fibrillation 06/21/2019 M54.2 Cervicalgia Nic Bolaños MD 06/21/2019 M25.511 Pain in right shoulder Nic Bolaños MD 06/21/2019 J44.1 Chronic obstructive pulmonary disease Nic Bolaños MD with (acute) exacerbation 06/21/2019 Z79.01 custodial (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 Nic Bolaños MD 06/21/2019 I48.20 Chronic atrial fibrillation, unspecified Nic Bolaños MD 06/14/2019 R31.9 Hematuria, unspecified Makayla Cloud NP 06/14/2019 J44.9 Chronic obstructive pulmonary disease, Makayla Cloud, MAYELA unspecified 06/14/2019 R06.2 Wheezing Makayla Cloud NP 06/14/2019 Z79.01 custodial (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 Makayla Cloud, MAYELA 06/14/2019 I48.11 Longstanding persistent atrial Makayla Cloud, MAYELA fibrillation 06/10/2019 J44.1 Chronic obstructive pulmonary disease Nic Bolaños MD with (acute) exacerbation 06/04/2019 Z79.01 intermission coordinator (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 Nic Bolaños MD 06/04/2019 I48.11 Longstanding persistent atrial Nic Bolaños MD fibrillation 05/31/2019 J44.9 Chronic obstructive pulmonary disease, Nic Bolaños MD unspecified 05/31/2019 Z79.01 custodial (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 Nic Bolaños MD 05/31/2019 I48.20 Chronic atrial fibrillation, unspecified Nic Bolaños MD 05/31/2019 I49.5 Sick sinus syndrome Nic Bolaños MD 05/31/2019 I27.20 Pulmonary hypertension, unspecified Nic Bolaños MD 05/31/2019 J96.11 Chronic respiratory failure with hypoxia Nic Bolaños MD 05/28/2019 Z79.01 custodial (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 Nic Bolaños MD 05/28/2019 I48.20 Chronic atrial fibrillation, unspecified Nic Bolaños MD 05/21/2019 J16.8 Pneumonia due to other specified Milagro Mendoza NP infectious organisms 05/21/2019 I48.20 Chronic atrial fibrillation, unspecified Milagro Mendoza NP 05/21/2019 Z79.01 intermission coordinator (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 Milagro Mendoza NP [...] 9:20 am - Nic Bolaños MD at [facility] Egfndb9307/20/2019 10:00 am - Nic Bolaños MD at [facility] Hilabm4707/08/2019 - Nic Bolaños, MDM75.01 Adhesive capsulitis of right wykbsxwnP84.02 Adhesive capsulitis of left kasdlwhjJ68.1 Chronic obstructive pulmonary disease with (acute) exacerbationAllComments:Medication Management Patient Understands medications he's taking? Yes No Are there Barriersto Adherence? Yes No Has the patient been asked about herbal supplements and therapies, and OTC meds? Yes No Functional Status Description No Information Available Mental Status Description No Information Available Referrals Refer to Reason for Referral Status Appt Date Derrick Wang Hematuria jw Sent [address] [place] [address] [place] [address] [phone] Gris Price COPD jw Sent [address] [facility] [address] [phone] José Luis Vines MD a-fib jw Scheduled 06/11/2019 [address] [facility] [address] Floor [place], [place] [id number] [phone] [facility] overnight O2 test. Order faxed. LT Sent [address] [place] [address] [phone]
--- NOTE | 2019-09-04 22:04 | ED ---
GI/ HPI - HPI Summary HPI Summary: Patient is an 84 y/o M presenting to [facility] with a chief complaint of urinary retention since 1200 today. He reports that he had a Willis catheter removed yesterday following a multiple bladder polyp surgery performed by Dr. Mckeon from urology on 08/30/2019. Today, he has been unable to urinate and has been experiencing suprapubic abdominal pain currently rated 8/10 in severity. He urinated a small amount in the ED and expelled gross hematuria. He was recently placed on Eliquis. Past medical history includes atrial fibrillation with pacemaker, 2x cardiac arrests, diabetes, thyroid disease, RA, asthma, COPD, sleep apnea. Former smoker, rare EtOH, no substance use. Medications reviewed. Allergies noted. - History of Current Complaint Stated Complaint: UNABLE TO GO TO BATHROOM Hx Obtained From: Patient Onset/Duration: Started Hours Ago, Still Present Timing: Constant Severity: Mild Current Severity: Moderate Pain Intensity: 8 Location of Pain: Suprapubic Pain Characteristics: Aching Associated Signs and Symptoms: Positive: Hematuria, Other: - urinary retention Aggravating Factor(s): Nothing Alleviating Factor(s): Nothing - Additional Pertinent History Primary Care Physician: [id number] - Allergy/Home Medications Allergies/Adverse Reactions: Allergies Allergy/AdvReac Type Severity Reaction Status Date / Time acetaminophen [From Percocet] Allergy Hives Verified 09/04/19 22:33 oxycodone [From Percocet] Allergy Hives Verified 09/04/19 22:33 Home Medications: Home Medications Finasteride TAB* [Proscar TAB*] 5 mg PO BEDTIME 03/05/19 [History Confirmed 10/19] metFORMIN* [Glucophage 500 MG TAB *] 500 mg PO BID 03/05/19 [History Confirmed 09/05/19] rOPINIRole TAB* [Requip TAB*] 1 mg PO BEDTIME 03/05/19 [History Confirmed ] Epleronone (NF) [Inspra (NF)] 25 mg PO EVERY OTHER DAY 05/24/19 [History Confirmed 09/05/19] Gabapentin CAP(*) [Neurontin 300 CAP(*)] 300 mg PO QPM 05/24/19 [History Confirmed 09/05/19] Simvastatin TAB(NF) [Zocor 10 MG (NF)] 10 mg PO QPM 05/24/19 [History Confirmed 09/05/19] Albuterol/Ipratropium NEB.FABIOLA* [Duoneb (Albuterol 2.5 MG/Ipratropium 0.5 MG)] 1 neb INH TID PRN #90 neb.soln 06/08/19 [Rx Confirmed 09/05/19] Digoxin TAB* [Lanoxin TAB*] 0.125 mg PO QAM 08/25/19 [History Confirmed 09/05/19 ] Levothyroxine TAB* [Synthroid 88 MCG TAB*] 137 mcg PO DAILY 08/25/19 [History Confirmed 09/05/19] Apixaban [Eliquis] 5 mg PO BID 08/30/19 [History Confirmed 09/05/19] Multivitamin [Multivitamins] 1 cap PO DAILY 08/30/19 [History Confirmed 09/05/19 ] PMH/Surg Hx/FS Hx/Imm Hx Endocrine/Hematology History: Reports: Hx Anticoagulant Therapy - Patient takes Coumadin for atrial fibrillation., Hx Diabetes, Hx Thyroid Disease Cardiovascular History: Reports: Hx Angina, Hx Atrial Fibrillation, Hx Cardiac Arrest - X2, Hx Hypertension, Hx Pacemaker/ICD - IMPLANTED PACEMAKER, Hx Peripheral Vascular Disease, Other Cardiovascular Problems/Disorders - 3 OPERATIONS ON NECK IN [place], SEVERE COMPLICATIONS POST OP RESULTING IN AFIB AND PATIENT REQUIRED A PACEMAKER. DR. RIVKA SEGAL PERFORMED SURGERY ON HEART, . Respiratory History: Reports: Hx Asthma, Hx Chronic Obstructive Pulmonary Disease (COPD), Hx Sleep Apnea, Other Respiratory Problems/Disorders - CATRACHO SCORE :STOP BANG SCORE=HIGH RISK, 3/8 Musculoskeletal History: Reports: Hx Arthritis - THROUGHOUT BODY, Other Musculoskeletal History - SEE SURGERY! Sensory History: Reports: Hx Cataracts, Hx Contacts or Glasses Denies: Hx Legally Blind, Hx Deafness, Hx Hearing Aid - DIFFICULTY HEARING Opthamlomology History: Reports: Hx Cataracts, Hx Contacts or Glasses Denies: Hx Legally Blind - Surgical History Surgical History: Yes Surgery Procedure, Year, and Place: cervical spine with screws and plates; right shoulder x 3, left shoulder x 1; hip replacement; left arm plate; knee; gallbladder. Cardiac with pacemaker placement. bladder polyp removal 2020 Dr. Linda Rendon Anesthesia Reactions: No Infectious Disease History: No Infectious Disease History: Denies: Traveled Outside the [place] in Last 30 Days - Family History Known Family History: Negative: Seizure Disorder - Social History Alcohol Use: Rare Hx Substance Use: No Substance Use Type: Reports: None Hx Tobacco Use: Yes Smoking Status (MU): Former Smoker Type: Cigarettes Amount Used/How Often: 2 cartons/wk Have You Smoked in the Last Year: No Review of Systems Positive: Abdominal Pain - suprapubic Positive: frequency - retention, hematuria All Other Systems Reviewed And Are Negative: Yes Physical Exam - Summary Physical Exam Summary: Appearance: Well-appearing, Well-nourished, lying in bed comfortable Skin: Warm, dry, no obvious rash Eyes: sclera anicteric, no conjunctival pallor HENT: mucous membranes moist Neck: deferred Respiratory: No signs of respiratory distress Cardiovascular: Appears well perfused, pulses are nml Abdomen: deferred Musculoskeletal: Moving all 4 extremities without obvious discomfort Neurological: Awake and alert, mentation is normal, speech is fluent and appropriate Psychiatric: affect is normal, does not appear anxious or depressed Bladder Scan: Greater than 400ccs of urine Triage Information Reviewed: Yes Vital Signs On Initial Exam: Initial Vitals Temp Pulse Resp BP Pulse Ox 98.1 F 76 15 137/87 95 09/04/19 21:20 09/04/19 21:20 09/04/19 21:20 09/04/19 21:20 09/04/19 21:20 Vital Signs Reviewed: Yes Procedures - Sedation Patient Received Moderate/Deep Sedation with Procedure: No Diagnostics - Vital Signs Vital Signs Temp Pulse Resp BP Pulse Ox 09/04/19 21:20 98.1 F 76 15 137/87 95 - Laboratory Result Diagrams: 09/04/19 23:45 09/04/19 23:45 Lab Statement: Any lab studies that have been ordered have been reviewed, and results considered in the medical decision making process. Re-Evaluation - Re-Evaluation First Eval Re-Evaluation Time: 23:40 Comment: Patient agreeable with admission Second Eval Re-Evaluation Time: 00:45 Change: Improved Comment: Per nurse Machelle willis was replaced, more clots irrigated, will continue with CBI GIGU Course/Dx - Course Course Of Treatment: Patient is an 84 y/o M presenting with urinary retention following recent Willis catheter removal yesterday placed initially on 08/30/2019 for bladder polyp surgery performed by Dr. Mckeon in urology. Endorses suprapubic abdominal pain. One episode of urination in the ED with gross hematuria. Recently placed on Eliquis. PMHx includes diabetes, afib with pacemaker, asthma, COPD, RA. Physical exam unremarkable. Bladder scan shows greater than 400ccs urine. Blood work significant for anemia with RBCs 3.06, hemoglobin 9.8, hematocrit 29, MPV 6.4, chloride 95, carbon dioxide 37, BUN/ creatinine ratio 21.7. Dr. Mckeon from urology recommends piston irrigation for possible clots with CBI and plan for admission if not improved. Nurse Machelle already given 3L CBI and attempted piston irrigation without relief. Additional CBI to be given. Dr. Wood from the hospitalist accepts the patient for admission. All results discussed with patient. Patient agreeable and understands need for admission. - Diagnoses Provider Diagnoses: Urinary retention, Gross hematuria - Physician Notifications Discussed Care Of Patient With: Ben Mckeon - urology Time Discussed With Above Provider: 23:35 Instructed by Provider To: Other - I discussed the patients case with Dr. Mckeon, and he recommends piston irrigation to see if there are any clots. I was advised that the primary nurse Machelle already has attempted this with 3- way Willis and 3L CBI given. Will plan for admission, per Dr. Mckeon. Dr. Wood accepts patient for admission, and Dr. Mckeon will consult for the patient. Discharge ED - Sign-Out/Discharge Documenting (check all that apply): Patient Departure - Patient accepted for admission by Dr. Wood. - Discharge Plan Condition: Stable Disposition: ADMITTED TO [facility] - Billing Disposition and Condition Condition: STABLE Disposition: Admitted to [facility] - Attestation Statements Document Initiated by Alfredo: Yes Documenting Scribe: Kalani Linton Provider For Whom Alfredo is Documenting (Include Credential): MD Karlee Lebronibliz Attestation: IKalani, scribed for Roverto Ventura MD on 09/05/19 at 0419. Scribe Documentation Reviewed: Yes Provider Attestation: The documentation as recorded by the Kalani cartwright accurately reflects the service I personally performed and the decisions made by me, Roverto Ventura MD Status of Scribe Document: Viewed
[2019-09-04 23:50] LABS: ABS Eosinophils 0.7 10^3/ul (0-0.6); ABS Monocytes 0.6 10^3/ul (0-0.8); ABS Neutrophils 3.7 10^3/ul (1.5-7.7); Eosinophil % 11.5 %; Hematocrit 29 % (42-52); Hemoglobin 9.8 g/dL (14.0-18.0); Lymphocyte % 16.5 %; Mean Corpuscular HGB Conc 34 g/dL (31-36); Mean Corpuscular Hemoglobin 32 pg (27-31); Mean Corpuscular Volume 95 fL (80-94); Mean Platelet Volume 6.4 fL (7.4-10.4); Platelet Count 176 10^3/uL (150-450); Red Blood Count 3.06 10^6 /uL (4.18-5.48); Red Cell Distribution Width 16 % (10-15)
[2019-09-05 00:07] LABS: BUN/Creatinine Ratio 21.7 (8-20); Calcium 9.2 mg/dL (8.6-10.3); EGFR African American 131.9 (>60); Potassium 4.2 mmol/L (3.5-5.0)
[2019-09-05] MEDS ORDERED: Albuterol/Ipratropium NEB.SOL* Albuterol 2.5 MG/Ipratropium 0.5 MG 3 ML INH PRN (01:14)
[2019-09-05] MEDS ORDERED: Ondansetron INJ* 2 MG/ML VIAL IV PRN (01:37)
[2019-09-05 02:22] LABS: Urine Appearance Cloudy; Urine Color Red
[2019-09-05 02:28] LABS: Urine Specific Gravity 1.005 (1.010-1.030)
[2019-09-05 02:32] LABS: Urine White Blood Cell 1+(6-10/hpf) (Absent)
[2019-09-05 02:33] LABS: Urine Bacteria Absent (Absent); Urine Red Blood Cell 3+(>10/hpf) (Absent); Urine Squamous Epithelial Cell Present (Absent)
[2019-09-05] MEDS: traMADol TAB* 50 MG PO PRN (03:42)
--- NOTE | 2019-09-05 05:42 | HP ---
HISTORY AND PHYSICAL: DATE OF ADMISSION: 09/05/19 PRIMARY CARE PROVIDER: Dr. Fiona Villaseñor. PADDED PRODUCTS INSPECTOR TRIMMER: Joana Marie, the patient's . CODE STATUS: Full. HPI is obtained from the patient. CHIEF COMPLAINT: Suprapubic pain and gross hematuria. HPI Obtained: By patient who is a good historian. 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 The patient reported that he had a Badillo catheter placed with his bladder tumor resection and just had it removed from Dr. Mckeon's office on 09/03/19. Since removal, he was only able to urinate small amounts and starting yesterday his urine became increasingly more dark pink and then red and then he was unable to urinate whatsoever. He presented to the ER secondary to his pain and his gross hematuria. He had been on Coumadin prior to his resection for his anticoagulation in the setting of the atrial fibrillation prior to resection of his bladder tumor and had restarted on Eliquis 1 day before his catheter was removed. His last dose was this evening. EMERGENCY ROOM COURSE: In the emergency room course, his vital signs were stable. Temperature of 98.1, heart rate 76, 95% on room air, respiratory rate 15 , blood pressure 137/87. Labs show a hemoglobin of 9.8, creatinine is 0.69. Dr. Mckeon was called from Urology who asked the patient to be admitted for continuous bladder irrigation in the setting of gross hematuria possibly secondary to Eliquis and recent bladder resection. 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 PAST SURGICAL HISTORY: Left hip arthroplasty, hernia repair x3, colon resection secondary to diverticulitis, neck surgery x2, bilateral shoulder surgery, left wrist surgery, and recent bladder tumor resection. MEDICATIONS: 1. Apixaban 5 mg p.o. b.i.d. 2. Eplerenone 25 mg p.o. every other day. 3. Metformin 500 mg p.o. b.i.d. 4. Multivitamin 1 tab p.o. daily. 5. Albuterol/ipratropium neb 1 neb inhaled t.i.d. p.r.n. 6. Digoxin 0.125 mg p.o. q.a.m. 7. Finasteride 5 mg p.o. q.h.s. 8. Gabapentin 300 mg p.o. q.p.m. 9. Levothyroxine 137 mcg p.o. daily. 10. Ropinirole 1 mg p.o. q.h.s. 11. Simvastatin 10 mg p.o. q.p.m. FAMILY HISTORY: His father from congestive heart failure and mother is from old age with no known chronic conditions. 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 He is a scant alcohol user 1 to 2 per month; former smoker, quit greater than 30 years ago, [id number] history; lifelong history of no illicits. REVIEW OF SYSTEMS: Constitutional: Negative for fever, chills, or malaise. HEENT: Negative for headaches, vision changes, or sore throat. Cardiovascular : Negative for chest pain, palpitations, or orthopnea. Respiratory: Negative for shortness of breath or cough. GI: Negative for nausea, vomiting, or diarrhea. Positive for abdominal pain. : Positive for hematuria and dysuria. Musculoskeletal: Negative for myalgias, arthralgias, or weakness. Skin: Negative for rashes or lesions. Neurological: Negative for focal weakness or numbness. Psychiatric: Negative for delusions or depression. Endocrine: Negative for polyuria or polydipsia. Heme: Negative for easy bruising, bleeding, or lymphadenopathy. Allergies: Negative for seasonal or frequent infections. ALLERGY: Tylenol, Oxycodone PHYSICAL EXAMINATION GENERAL APPEARANCE: This is a very well-appearing, pleasant gentleman, in no acute distress, receiving CBI, lying in bed. VITAL SIGNS: At the time of physical exam, blood pressure is 121/64, heart rate 71, oxygen saturation 97% on room air, respiratory rate 15, the patient's temperature is 98. HEENT: Pupils are equal and reactive. Extraocular muscles are intact. Moist mucous membranes. NECK: Supple. No supraclavicular or cervical lymphadenopathy. RESPIRATORY: Lungs are clear to auscultation bilaterally. CARDIAC: Regular rate and rhythm with a 2/6 systolic ejection murmur heard across precordium. GI: Belly is soft, nontender, and nondistended with mild tenderness to suprapubic area. EXTREMITIES: The patient has evidence of peripheral vascular disease with no edema, otherwise warm and well perfused. : The patient has 3-way bladder catheter in place with active CBI and punch colored urine draining. NEUROLOGIC: Cranial nerves II through XII are intact with no focal neurologic deficits. The patient is A and O x4. Pleasant and cooperative. DIAGNOSTIC STUDIES/LAB DATA: White blood cell count 6, hemoglobin 9.8, hematocrit 29, platelets 176. Sodium 135, potassium 4.2, chloride 95, carbon dioxide 37, anion gap 3, BUN 15, creatinine 0.69, glucose 88. No imaging was completed during the ER visit. ASSESSMENT AND PLAN: An 84-year-old male with past medical history of hypothyroidism, hyperlipidemia, coronary artery disease status post distant arrest; benign prostatic hypertrophy; atrial fibrillation, on anticoagulation; restless leg syndrome; chronic obstructive pulmonary disease; peripheral vascular disease; obstructive sleep apnea, on CPAP; sgs-uvogskq-zjtiujjzb diabetes; and recent diagnosis of bladder tumor status post resection on , who is presenting with gross hematuria and evidence of possible obstruction , status post his Badillo removal on 09/02/29 with gross hematuria, who is being admitted for continuous bladder irrigation secondary to his gross hematuria. 1. Gross hematuria. This is secondary to blood thinner, starting of anticoagulation in the setting of recent bladder resection and manipulation causing clots. We will hold Eliquis. We will continue continuous bladder irrigation. I have consulted Urology, who is aware this patient is admitted and will be seeing them on 09/05/19. 2. Atrial fibrillation. We will be holding anticoagulation. The patient remains on digoxin and his rate controlled on this admission. 3. Coronary artery disease. The patient is not on aspirin. Holding Eliquis right now. We will continue statin. 4. Hypothyroidism. Continue levothyroxine. 5. Benign prostatic hypertrophy. Continue finasteride. 6. Coronary artery disease. The patient is on statin, not on aspirin. He is on eplerenone as a baseline medication every other day. His last echo showing preserved ejection fraction and mild aortic stenosis. We will hold on eplerenone as this time and can restart if he has any signs of volume overload. 7. Obstructive sleep apnea. We will offer CPAP here in the hospital. 8. Chronic obstructive pulmonary disease. We will offer DuoNeb p.r.n. and there is no evidence of exacerbation. 9. Restless leg syndrome. The patient is on ropinirole and gabapentin. We will continue home medications. 10. DVT prophylaxis: We will hold for now secondary to gross hematuria. 11. Diet: Heart healthy. 12. Code status: Full. 13. Disposition: Stable to be admitted to short stay. We will hold on PT/OT referral. TIME SPENT: Forty five minutes was spent in planning of this admission with over half of that spent directly at the bedside with the patient providing direct patient care. Plan of care was discussed with the patient, who understands that he will be admitted and no further questions. [id number]/[facility] #: [id number] AD
[2019-09-05] MEDS: Levothyroxine TAB* 137 MCG TAB PO SCH (06:07)
[2019-09-05] MEDS: Digoxin TAB* 0.125 MG PO SCH (10:53)
[2019-09-05 10:55] LABS: Hematocrit 28 % (42-52); Hemoglobin 9.4 g/dL (14.0-18.0)
[2019-09-05 11:16] LABS: Activated Partial Thrombo Time 40.9 seconds (26.0-38.0); INR 1.25 (0.82-1.09)
--- NOTE | 2019-09-05 12:29 | CONS ---
CONSULTATION NOTE: DATE OF CONSULT: 09/05/19 LOCATION: The patient is in room #349. HISTORY OF PRESENT ILLNESS: Mr. Marie is an 84-year-old white male who was recently diagnosed with bladder tumors. Nine days ago, he underwent an uncomplicated transurethral resection of bladder tumors. The pathology showed high-grade TCC with invasion into the lamina propria. The patient had been on Eliquis preoperatively and was discontinued pre-operatively. The patient's Badillo catheter was removed 2 days ago, his urine was clear and he was restarted on Eliquis. The patient took 2 doses of Eliquis, one yesterday morning and another dose in the evening. He started having gross hematuria and went into clot urinary retention. He presented to the emergency room late at night where he had a Badillo catheter placed, irrigated, and placed on continuous bladder irrigation. On evaluation this morning, his urine is still holland color; however it clears up easily on the continuous bladder irrigation. I irrigated his bladder and evacuated about 20 cc of clots. His lab work today show a hematocrit of 29 and his INR is still elevated at 41. Considering that the anticoagulation effect of the Eliquis is not resolved yet, the plan is to keep him off the Eliquis and to continue on the continuous bladder irrigation and to irrigate his bladder manually as needed. If the coag studies are back normal and he continues to have the gross hematuria or he goes into repeated clot urinary retention, he will need to be taken back to the operating room for cystoscopy and fulguration of bladder bleeders. [id number]/[facility] #: [id number] AD
--- NOTE | 2019-09-05 17:49 | PN ---
Subjective Date of Service: 09/05/19 Interval History: Patient was resting in bed comfortable. Reported mild abdominal pain and discomfort from the catheter. Denies lightheadedness, dizziness, chest pain, abdominal pain, nausea, vomiting. Family History: Unchanged from Admission Social History: Unchanged from Admission Past Medical History: Unchanged from Admission Objective Active Medications: Albuterol/Ipratropium (Duoneb (Albuterol 2.5 Mg/Ipratropium 0.5 Mg)) 1 neb INH TID PRN PRN Reason: SOB/WHEEZING Digoxin (Lanoxin Tab*) 0.125 mg PO QAM [facility] Last Admin: 09/05/19 10:53 Dose: 0.125 mg Finasteride (Proscar Tab*) 5 mg PO BEDTIME [facility] Gabapentin (Neurontin Cap(*)) 300 mg PO QPM [facility] Levothyroxine Sodium (Synthroid Tab*) 137 mcg PO DAILY@0600 [facility] Last Admin: 09/05/19 06:07 Dose: 137 mcg Ondansetron HCl (Zofran Inj*) 4 mg IV Q6H PRN PRN Reason: NAUSEA Ropinirole HCl (Requip Tab*) 1 mg PO BEDTIME [facility] Simvastatin (Zocor(Nf)) 10 mg PO QPM [facility] Tramadol HCl (Ultram*) 50 mg PO Q6H PRN PRN Reason: PAIN - MODERATE Last Admin: 09/05/19 03:42 Dose: 50 mg Vital Signs - 8 hr 09/05/19 09/05/19 09/05/19 10:53 12:04 14:55 Temperature 97.9 F 99.6 F Pulse Rate 70 61 65 Respiratory 18 16 Rate Blood Pressure 109/46 110/58 (mmHg) O2 Sat by Pulse 94 97 Oximetry Oxygen Devices in Use Now: None Appearance: Pale, well developed older gentleman in no acute distress. Eyes: No Scleral Icterus, PERRLA Ears/Nose/Mouth/Throat: NL Teeth, Lips, Gums, Clear Oropharnyx, Mucous Membranes Moist Neck: NL Appearance and Movements; NL JVP, Trachea Midline Respiratory: Symmetrical Chest Expansion and Respiratory Effort, Clear to Auscultation Cardiovascular: NL Sounds; No Murmurs; No JVD, RRR, No Edema Abdominal: - - Abdomen softly distended, tender to lower quadrants. Lymphatic: No Cervical Adenopathy Extremities: No Edema Skin: No Rash or Ulcers, No Nodules or Sclerosis Neurological: Alert and Oriented x 3 Lines/Tubes/Other Access: Clean, Dry and Intact Willis - CBI, Clean, Dry and Intact Peripheral IV Result Diagrams: 09/05/19 18:28 09/04/19 23:45 Assess/Plan/Problems-Billing Assessment: This is an 84 year old male with a past medical history of afib, COPD and bladder CA was admitted 09/05/19 for gross hematuria. - Patient Problems (1) Gross hematuria Current Visit: Yes Status: Acute Comment: - On 08/29 patient underwent a TURB of two tumors. Was restarted on his apixaban three days prior to admission and began to bleed. - HH is relatively stable. Has willis catheter with CBI. - Dr. Mckeon unable to take him to the OR today due to elevated PTT. Will recheck tomorrow. Keep patient NPO after midnight with the anticipation of OR tomorrow. RCRI of 0 equal to a 3.9% risk of , OK, cardiac event. NSQIP= 0.5 % chance of cardiac complication and 6.6% chance of serious complication. He is medically optimized for surgery. (2) Atrial fibrillation Current Visit: Yes Status: Acute Code(s): I48.91 - UNSPECIFIED ATRIAL FIBRILLATION SNOMED Code(s): 39158522 Comment: - Will hold apixaban while bleeding. Continue digoxin. (3) CAD (coronary artery disease) Current Visit: Yes Status: Acute Code(s): I25.10 - ATHSCL HEART DISEASE OF [place] CORONARY ARTERY W/O ANG PCTRS SNOMED Code(s): 65866989 Comment: - Not on aspirin at home. Continue simvastatin, will hold AC and epleronone. (4) Hypothyroid Current Visit: Yes Status: Acute Code(s): E03.9 - HYPOTHYROIDISM, UNSPECIFIED SNOMED Code(s): 37073414 Comment: - Continue levothyroxine (5) BPH (benign prostatic hyperplasia) Current Visit: Yes Status: Acute Code(s): N40.0 - BENIGN PROSTATIC HYPERPLASIA WITHOUT LOWER URINRY TRACT SYMP SNOMED Code(s): 695152468 Comment: - Continue finasteride. (6) COPD (chronic obstructive pulmonary disease) Current Visit: Yes Status: Acute Code(s): J44.9 - CHRONIC OBSTRUCTIVE PULMONARY DISEASE, UNSPECIFIED SNOMED Code(s): 60666077 Comment: - Is not on any home inhalers. Duonebs ordered for inpatient. Does not appear to be in exacerbation. (7) RLS (restless legs syndrome) Current Visit: Yes Status: Acute Comment: - Continue ropinerole and gabapentin. (8) DVT (deep venous thrombosis) Current Visit: Yes Status: Acute Code(s): I82.409 - ACUTE EMBOLISM AND THOMBOS UNSP DEEP VN UNSP LOWER EXTREMITY SNOMED Code(s): 227702844 Comment: - Hold AC due to bleed. SCD's ordered. (9) Full code status Current Visit: Yes Status: Acute Code(s): Z78.9 - OTHER SPECIFIED HEALTH STATUS SNOMED Code(s): 987667554 Status and Disposition: Condition: Guarded Disposition: Admit inpatient to [facility]. Attending: Christi Disla
[2019-09-05] MEDS ORDERED: CMCS:Simvastatin TAB(NF) 10 MG TAB PO SCH (18:00)
[2019-09-05] MEDS ORDERED: Gabapentin CAP(*) 300 MG PO SCH (18:00)
[2019-09-05 18:37] LABS: Hematocrit 26 % (42-52); Hemoglobin 8.8 g/dL (14.0-18.0)
[2019-09-05 18:45] LABS: Activated Partial Thrombo Time 40.9 seconds (26.0-38.0); INR 1.28 (0.82-1.09)
[2019-09-05] MEDS ORDERED: Melatonin 3 MG TAB PO PRN (19:20)
[2019-09-05] MEDS ORDERED: Finasteride TAB* 5 MG PO SCH (21:00)
[2019-09-05] MEDS ORDERED: rOPINIRole TAB* 1 MG PO SCH (21:00)
[2019-09-06] MEDS: Levothyroxine TAB* 137 MCG TAB PO SCH (05:06)
[2019-09-06 05:20] LABS: ABS Eosinophils 0.3 10^3/ul (0-0.6); ABS Lymphocytes 1.2 10^3/ul (1.0-4.8); ABS Monocytes 0.7 10^3/ul (0-0.8); Eosinophil % 4.3 %; Hematocrit 25 % (42-52); Hemoglobin 8.5 g/dL (14.0-18.0); Lymphocyte % 16.4 %; Mean Corpuscular HGB Conc 35 g/dL (31-36); Mean Corpuscular Hemoglobin 33 pg (27-31); Mean Corpuscular Volume 96 fL (80-94); Mean Platelet Volume 6.4 fL (7.4-10.4); Platelet Count 177 10^3/uL (150-450); Red Blood Count 2.57 10^6 /uL (4.18-5.48); Red Cell Distribution Width 16 % (10-15); White Blood Count 7.2 10^3/uL (3.5-10.8)
[2019-09-06 05:28] LABS: Activated Partial Thrombo Time 36.3 seconds (26.0-38.0); INR 1.19 (0.82-1.09)
[2019-09-06 05:39] LABS: BUN/Creatinine Ratio 19.4 (8-20); Calcium 8.7 mg/dL (8.6-10.3); EGFR African American 136.4 (>60); EGFR Non-African American 112.7 (>60); Potassium 4.1 mmol/L (3.5-5.0)
[2019-09-06 08:06] VITALS: BP 104/48
[2019-09-06] MEDS: traMADol TAB* 50 MG PO PRN (10:03)
[2019-09-06] MEDS: Digoxin TAB* 0.125 MG PO SCH (10:04)
--- NOTE | 2019-09-06 18:29 | DS ---
CC: Dr. Nic Bolaños; Dr. Dolly Mcgregor* DISCHARGE SUMMARY: DATE OF ADMISSION: 09/05/19 DATE OF DISCHARGE: 09/06/19 PRIMARY CARE PROVIDER: Dr. Nic Bolaños. MY ATTENDING WHILE IN THE HOSPITAL: Dr. Dolly Mcgregor* (dictated by DEVENDRA Ward). OUTPATIENT UROLOGIST: Dr. Mckeon. PRIMARY DISCHARGE DIAGNOSES: 1. Hematuria in the setting of bladder tumor removal and anticoagulation. 2. History of papillary urethral carcinoma, status post resection. SECONDARY DISCHARGE DIAGNOSES: 1. Hypothyroidism. 2. Hyperlipidemia. 3. Restless leg syndrome. 4. Benign prostatic hypertrophy. 5. Atrial fibrillation. 6. Coronary artery disease. 7. Chronic obstructive pulmonary disease. 8. Peripheral vascular disease. 9. Obstructive sleep apnea. 10. Diabetes mellitus type 2. STUDIES DONE WHILE IN THE HOSPITAL: None. MEDICATIONS: At discharge: 1. Finasteride 5 mg p.o. at bedtime. 2. Ropinirole 1 mg p.o. at bedtime. 3. Metformin 500 mg p.o. b.i.d. 4. Zocor 10 mg p.o. daily. 5. Eplerenone 25 mg p.o. every other day. 6. Gabapentin 300 mg p.o. daily. 7. DuoNeb 1 neb inhalation t.i.d. as needed. 8. Levothyroxine 137 mcg p.o. daily. 9. Digoxin 0.125 mg p.o. daily. 10. Multivitamin 1 tab p.o. daily. New medication at discharge: None. Medication discontinued at discharge: Apixaban. HOSPITAL COURSE: This is a brief summary of the patient's presentation. For more details, please see the history and physical from Kelsey Wood MD on . In brief, the patient is an 84-year-old male with past medical history significant for the above, who presented to the emergency department after the patient had a bladder tumor resection on 08/30/19. He had a Badillo catheter placed at that time. He had that Badillo catheter removed on 09/03/19 and notes his urine output decreased significantly since then with a large increase in his hematuria. The patient also had his Eliquis resumed at that time. The patient had increased abdominal pain and the patient was admitted to the hospital for gross hematuria. The patient had a significant drop in his hemoglobin from 12.2 on 08/23/19 to 9.8 on 09/04/19. The patient had a Badillo catheter inserted with continuous bladder irrigation. The patient's hemoglobin trended down slightly from 9.8 to 8.5 while in the hospital. The patient had no hypotension and felt well while in the hospital. The patient was seen in consultation by Dr. Ben Mckeon who initially planned for bladder ; however, this patient's urine became almost clear on 09/06/19 and without any clots. The patient's bladder procedure was canceled and the patient was deemed stable for discharge from urological standpoint with his Badillo catheter without his Eliquis and for close followup within 1 week. The patient was agreeable with this and the patient was stable and amenable for discharge to home on 09/05. PHYSICAL EXAMINATION ON DISCHARGE: General: The patient is an 84-year-old male who appears stated age and sitting comfortably in bed, in no acute distress. Vital Signs: At the time of evaluation, temperature 99.0, pulse rate 68, respiratory rate 16, oxygen saturation 99% on room air, blood pressure 104/48. HEENT: Normocephalic, atraumatic. Sclerae anicteric. No conjunctival injection. Nasal mucosa moist. Oral mucosa moist. No pharyngeal erythema, discharge or exudate. Neck: Supple, nontender. No lymphadenopathy. No carotid bruits auscultated. No JVDs. Cardiac: Regular rate and rhythm. No clicks, murmurs, gallops, or rubs. Pulses 2+ in bilateral dorsalis pedis, posterior tibialis, and radial areas. Respiratory: Clear to auscultation bilaterally. No wheezes, rales, or rhonchi. Good air exchange bilaterally. Abdomen: Soft, nontender, nondistended. Bowel sounds present, normoactive in all 4 quadrants. No hepatosplenomegaly. No abdominal bruits auscultated. No hepatojugular reflux. Genitourinary: No suprapubic or CVA tenderness. Badillo catheter in place draining pink translucent urine. Skin: Clear and intact. No rashes. Neuro: Cranial nerves II through XII intact. No focal deficits. Alert and oriented x3. Psychiatric: Pleasant and cooperative. DISCHARGE PLAN BY PROBLEM: 1. Gross hematuria in the setting of bladder tumor removal and anticoagulation. The patient's hematuria seems to be improving as his INR normalizes from the Eliquis being washing out from his system. The patient is having minimal hematuria at this time. The patient will continue with his Badillo catheter at home and follow closely with Dr. Ben Mckeon. The patient has been instructed to follow up with his primary care provider within the next 5 days for a repeat CBC. The patient will likely have his Badillo catheter removed in 1 week if deemed appropriate by Dr. Mckeon. The patient will hold his Eliquis until then. The patient is not symptomatic from his anemia. He is able to walk around the unit several times before his discharge. 2. Bladder tumor removal. Management per Dr. Mckeon. The patient is status post resection. 3. COPD. The patient is not in exacerbation. Continue the patient's nebulizer as needed. 4. Diabetes mellitus, type 2. Continue the patient's metformin. The patient is not on insulin. 5. BPH. Continue the patient's Badillo catheter and finasteride. 6. CATRACHO. Continue the patient's CPAP. 7. Restless leg syndrome. Continue the patient's gabapentin and ropinirole. 8. Coronary artery disease. Continue the patient's statin. The patient is not on aspirin or Eliquis at this time. 9. Atrial fibrillation. Continue the patient's digoxin for rate control. The patient did not have a digoxin level checked while in the hospital. 10. Disposition: Home. 11. The patient's condition is stable. TIME SPENT: Approximately 40 minutes was spent on the discharge of this patient , 30 of which was spent [id number] with the patient obtaining history and physical and discussing treatment plan. DEVENDRA WARD [id number]/[facility] #: [id number] AD
== END 2019-09-06 11:50 | disposition home or self-care (01) | DRG 696 ==
LOC: ED 21:19 → SSU 09-05 01:06
PROVIDERS: ADMIT Internal Medicine; ATTEND Internal Medicine
DX: R31.0 Gross hematuria (principal); T45.515A Adverse effect of anticoagulants, initial encounter; Y92.009 Unspecified place in unspecified non-institutional (private) residence as the place of occurrence of the external cause; E03.9 Hypothyroidism, unspecified; E78.5 Hyperlipidemia, unspecified; G25.81 Restless legs syndrome; N40.0 Benign prostatic hyperplasia without lower urinary tract symptoms; I48.91 Unspecified atrial fibrillation; I25.10 Atherosclerotic heart disease of native coronary artery without angina pectoris; J44.9 Chronic obstructive pulmonary disease, unspecified; I73.9 Peripheral vascular disease, unspecified; G47.33 Obstructive sleep apnea (adult) (pediatric); E11.9 Type 2 diabetes mellitus without complications; Z98.890 Other specified postprocedural states; Z79.01 Long term (current) use of anticoagulants; Z79.84 Long term (current) use of oral hypoglycemic drugs; Z79.899 Other long term (current) drug therapy; Z82.49 Family history of ischemic heart disease and other diseases of the circulatory system; Z87.891 Personal history of nicotine dependence
CPT/HCPCS: 36415; 80048; 81003; 85014; 85018; 85025; 85610; 85730; 87086; 99285; A9270-GY